=== PATIENT | male | born 1930 | race Caucasian/White ===

== ENCOUNTER 2016-11-08 09:58 | Inpatient (IN) | payer MEDICARE ==
[2016-11-08] VITALS (8 sets, daily range): BP systolic 109–200; BP diastolic 65–107; PULSE 70–96; RESP 16–20; TEMP 97.5–98.7; O2SAT 97–100
[~2016-11-08] VITALS: Ht 175.3 cm; Wt 74.0 kg
--- NOTE | 2016-11-08 10:19 | PD ---
HPI Chief Complaint: Injury Time Seen by Provider: 10:14 Travel History International Travel<30 days: No Contact w/Intl Traveler<30days: No Traveled to known affect area: No History of Present Illness HPI 86-year-old male with history of chronic arthritis left knee, presents to the ER today because he has had intermittent pain in his right knee for the past 4 months, worse in the past 3 weeks, had been seen by primary care physician and specialist regarding the right knee, had been told it was arthritis, and comes to the ER today because he states that now he has both knees at which are hurting him and he is not able to get around. Patient states that he lives alone. His right knee is painful especially with movement, and states that he can get an 8 out of 10 pain when he strains of the knee. He denies any fevers, new injuries, or any other issues. Modifying Factors: Worse with movements Associated Signs & Symptoms: Worsening right knee pain, difficulty getting around Risk Factors: Arthritis history PFSH Past Medical History Arthritis: No Asthma: No Autoimmune Disease: No Blood Disorders: No Anxiety: No Cancer: Yes (? COLON CANCER) High Cholesterol: No Chest Pain: No Congestive Heart Failure: No COPD: No Diminished Hearing: No Endocrine: No Gastrointestinal Disorders: Yes (COLON BLOCKAGE,COLOSTOMY, HX STOMACH ULCER) GERD: No Glaucoma: No Gout: Yes Genitourinary: Yes (RT KIDNEY NONFUNCTIONAL) Headaches: No Hepatitis: No Hiatal Hernia: Yes Hypertension: Yes Immune Disorder: No Kidney Stones: Yes (NEW ONSET) Musculoskeletal: No Neurologic: No Psychiatric: No Reproductive: No Immunizations Current: Yes Myocardial Infarction: No Renal Failure: No Seizures: No Sickle Cell Disease: No Sleep Apnea: No Thyroid Disease: No Ulcer: Yes Past Surgical History Abdominal Surgery: Yes (REPAIR OF PERFORATED ULCER, COLOSTOMY,UMBILICAL HERNIA REPAIR) AICD: No Cardiac Surgery: No Endocrine Surgery: No Eye Surgery: Yes (CATHRYN CATARACT REMOVED) Genitourinary Surgery: No Joint Replacement: No Pacemaker: No Thoracic Surgery: No Other Surgery: Yes Social History Alcohol Use: No Tobacco Use: No Substance Use: No Allergies-Medications (Allergen,Severity, Reaction): Coded Allergies: Advil (Verified Allergy, Severe, hives, 04/23/15) Aspirin (Verified Allergy, Severe, rash, 04/23/15) Ativan (Verified Allergy, Severe, rash, 04/23/15) PT STATES MAKES HIM CRAZY Tylenol (Verified Allergy, Severe, rash, 04/23/15) Reported Meds & Prescriptions Reported Meds & Active Scripts Active No Active Prescriptions or Reported Medications Review of Systems Except as stated in HPI: all other systems reviewed are Neg Physical Exam Narrative GENERAL: Well-developed, elderly white male patient who is awake, alert, oriented 3. Currently none acute distress. SKIN: Focused skin assessment warm/dry. HEAD: Atraumatic. Normocephalic. EYES: Pupils equal and round. No scleral icterus. No injection or drainage. ENT: No nasal bleeding or discharge. Mucous membranes pink and moist. NECK: Trachea midline. No JVD. CARDIOVASCULAR: Regular rate and rhythm. No murmur appreciated. RESPIRATORY: No accessory muscle use. Clear to auscultation. Breath sounds equal bilaterally. GASTROINTESTINAL: Abdomen soft, non-tender, nondistended. Hepatic and splenic margins not palpable. MUSCULOSKELETAL: No obvious deformities. No clubbing. No cyanosis. No edema. NEUROLOGICAL: Awake and alert. No obvious cranial nerve deficits. Motor grossly within normal limits. Normal speech. PSYCHIATRIC: Appropriate mood and affect; insight and judgment normal. EXTREMITIES: No clubbing, cyanosis, or edema. There is notable right knee effusion with tenderness on palpation and tenderness with ranging of motion and straightening of the right knee. No obvious bony deformities identified. Left knee is nontender to palpation, mildly tender with straightening. Neurovascularly intact. Data Data Last Documented VS Vital Signs Date Time Temp Pulse Resp B/P Pulse Ox O2 Delivery O2 Flow Rate FiO2 11/08/16 10:16 Room Air 11/08/16 10:08 97.7 96 18 195/88 98 Orders Electrocardiogram (11/08/16 ) Complete Blood Count With Diff (11/08/16 10:14) Basic Metabolic Panel (Bmp) (11/08/16 10:14) C-Reactive Protein (Crp) (11/08/16 10:14) Urinalysis - C+S If Indicated (11/08/16 10:14) Westergren Sedimentation Rate (11/08/16 10:14) Knee, Complete (4vws) (11/08/16 10:14) Knee, Complete (4vws) (11/08/16 10:21) Cath For Specimen (11/08/16 10:48) Urine Culture (11/08/16 11:16) Lactic Acid Sepsis Protocol (11/08/16 11:52) Blood Culture (11/08/16 11:52) Piperacil-Tazo 3.375 Gm Premix (Zosyn 3. (11/08/16 12:00) Admit Order (Ed Use Only) (11/08/16 12:16) Labs Laboratory Tests Test 11/08/16 11/08/16 10:20 11:16 White Blood Count 12.7 TH/MM3 Red Blood Count 4.64 MIL/MM3 Hemoglobin 12.5 GM/DL Hematocrit 39.2 % Mean Corpuscular Volume 84.4 FL Mean Corpuscular Hemoglobin 27.0 PG Mean Corpuscular Hemoglobin 32.0 % Concent Red Cell Distribution Width 14.4 % Platelet Count 383 TH/MM3 Mean Platelet Volume 7.9 FL Neutrophils (%) (Auto) 91.1 % Lymphocytes (%) (Auto) 3.8 % Monocytes (%) (Auto) 4.9 % Eosinophils (%) (Auto) 0.1 % Basophils (%) (Auto) 0.1 % Neutrophils # (Auto) 11.6 TH/MM3 Lymphocytes # (Auto) 0.5 TH/MM3 Monocytes # (Auto) 0.6 TH/MM3 Eosinophils # (Auto) 0.0 TH/MM3 Basophils # (Auto) 0.0 TH/MM3 CBC Comment DIFF FINAL Differential Comment Erythrocyte Sedimentation Rate 18 mm/hr Sodium Level 138 MEQ/L Potassium Level 4.4 MEQ/L Chloride Level 107 MEQ/L Carbon Dioxide Level 17.6 MEQ/L Anion Gap 13 MEQ/L Blood Urea Nitrogen 86 MG/DL Creatinine 4.83 MG/DL Estimat Glomerular Filtration 11 ML/MIN Rate Random Glucose 202 MG/DL Calcium Level 9.9 MG/DL C-Reactive Protein 24.00 MG/DL Urine Color YELLOW Urine Turbidity CLOUDY Urine pH 6.0 Urine Specific [place] 1.020 Urine Protein 100 mg/dL Urine Glucose (UA) NEG mg/dL Urine Ketones NEG mg/dL Urine Occult Blood MOD Urine Nitrite NEG Urine Bilirubin NEG Urine Urobilinogen LESS THAN 2.0 MG/DL Urine Leukocyte Esterase LARGE Urine RBC 23 /hpf Urine WBC /hpf Urine WBC Clumps MANY Urine Squamous Epithelial 3 /hpf Cells Urine Bacteria MANY /hpf Urine Mucus FEW /lpf Microscopic Urinalysis Comment CULTURE INDICATED MDM Medical Decision Making Medical Screen Exam Complete: Yes Emergency Medical Condition: Yes Medical Record Reviewed: Yes Interpretation(s) EKG shows normal sinus rhythm with frequent PVCs, rate at 90 bpm. No signs of acute ST-T changes. Laboratory Tests Test 11/08/16 11/08/16 10:20 11:16 White Blood Count 12.7 TH/MM3 (4.0-11.0) Hemoglobin 12.5 GM/DL (13.0-17.0) Neutrophils (%) (Auto) 91.1 % (16.0-70.0) Lymphocytes (%) (Auto) 3.8 % (9.0-44.0) Neutrophils # (Auto) 11.6 TH/MM3 (1.8-7.7) Lymphocytes # (Auto) 0.5 TH/MM3 (1.0-4.8) Carbon Dioxide Level 17.6 MEQ/L (21.0-32.0) Blood Urea Nitrogen 86 MG/DL (7-18) Creatinine 4.83 MG/DL (0.60-1.30) Estimat Glomerular Filtration 11 ML/MIN (>89) Rate Random Glucose 202 MG/DL (74-106) C-Reactive Protein 24.00 MG/DL (0.00-0.30) Urine Turbidity CLOUDY (CLEAR) Urine Protein 100 mg/dL (NEG-TRACE) Urine Occult Blood MOD (NEG) Urine Leukocyte Esterase LARGE (NEG) Urine RBC 23 /hpf (0-3) Urine WBC Clumps MANY (NONE) Urine Bacteria MANY /hpf (NONE) Urine Mucus FEW /lpf (OCC) Last 24 hours Impressions Knee X-Ray 11/08/16 1021 Signed Impressions: Service Date/Time: Tuesday, November 08, 2016 10:29 - CONCLUSION: No acute disease. Casey Otto MD Knee X-Ray 11/08/16 1014 Signed Impressions: Service Date/Time: Tuesday, November 08, 2016 10:31 - CONCLUSION: Atherosclerosis. Moderate knee joint effusion. Mild osteoarthritis. Casey Otto MD Differential Diagnosis Worsening right knee pain, bilateral knee painsosteoarthritis versus gouty arthritis versus acute fractures Narrative Course X-ray did not reveal any signs of acute issues. He does have significant the left knee arthritis. Lab work shows significant UTI. Patient's friend comes in and states that he did look local disoriented yesterday as well. At this point, my plan would be to give him IV antibiotics for UTI, there is suspicion of underlying sepsis. My plan would be to admit the patient for further treatment. Case is discussed with Dr. Montanez for admission. Sepsis Criteria SIRS Criteria (2 or more): Heart rate over 90, WBC > 13800, < 4000 or > 10% bands Sepsis Criteria (SIRS+source): Infect source susp/known Diagnosis Primary Impression: UTI (urinary tract infection) Additional Impressions: Sepsis Acute renal failure Knee pain, right Admitting Information Admitting Physician Requests: Admit Scripts No Active Prescriptions or Reported Meds Kenton Guo MD Nov 08, 2016 10:19 Kenton Guo MD Nov 08, 2016 10:19
[2016-11-08 10:40] LABS: AUTOMATED NEUTROPHIL # 11.6 TH/MM3 (1.8-7.7); BASOPHIL % 0.1 % (0.0-2.0); EOSINOPHIL % 0.1 % (0.0-4.0); HEMATOCRIT 39.2 % (39.0-51.0); HEMO FLAGS DIFF FINAL; LYMPH % 3.8 % (9.0-44.0); LYMPHOCYTE # 0.5 TH/MM3 (1.0-4.8); MEAN CELL VOLUME 84.4 FL (80.0-100.0); MONO % 4.9 % (0.0-8.0); NEUT % 91.1 % (16.0-70.0); PLATELET COUNT 383 TH/MM3 (150-450); RED BLOOD COUNT 4.64 MIL/MM3 (4.50-5.90); RED CELL DISTRIBUTION WIDTH 14.4 % (11.6-17.2); WHITE BLOOD COUNT 12.7 TH/MM3 (4.0-11.0)
--- NOTE | 2016-11-08 10:50 | RADRPT ---
EXAM DATE/TIME: 11/08/2016 10:31 [facility] COMPARISON: No previous studies available for comparison. INDICATIONS : Left knee pain., no known trauma MEDICAL HISTORY : None. SURGICAL HISTORY : None. ENCOUNTER: Initial ACUITY: 3 months PAIN SCORE: 6/10 LOCATION: Left knee FINDINGS: No fracture or dislocation. Moderate knee joint effusion. Popliteal artery calcifications. Mild narro wing of the medial tibiofemoral compartment. CONCLUSION: Atherosclerosis. Moderate knee joint effusion. Mild osteoarthritis. Casey Otto MD on November 08, 2016 at 10:48 Board Certified Radiologist. This report was verified electronically.
[2016-11-08 10:51] LABS: BICARBONATE 17.6 MEQ/L (21.0-32.0); POTASSIUM 4.4 MEQ/L (3.5-5.1)
--- NOTE | 2016-11-08 10:51 | RADRPT ---
EXAM DATE/TIME: 11/08/2016 10:29 [facility] COMPARISON: No previous studies available for comparison. INDICATIONS : Right knee pain. MEDICAL HISTORY : None. SURGICAL HISTORY : None. ENCOUNTER: Initial ACUITY: 3 months PAIN SCORE: 8/10 LOCATION: Right knee FINDINGS: Four view examination of the right knee demonstrates no evidence of fracture or dislocation. Bony mi neralization is normal. The articular surfaces are intact. The suprapatellar soft tissues have a no rmal configuration. CONCLUSION: No acute disease. Casey Otto MD on November 08, 2016 at 10:49 Board Certified Radiologist. This report was verified electronically.
[2016-11-08 11:43] LABS: BACTERIA, URINE MANY /hpf; BLOOD, URINE MOD (NEG); COMMENT (UR) CULTURE INDICATED; CULTURE IF INDICATED CULTURE INDICATED; GLUCOSE,URINE NEG (NEG); KETONE, URINE NEG (NEG); MUCUS URINE FEW /lpf (OCC); NITRITE,URINE NEG (NEG); SQUAMOUS EPITHELIAL CELL URINE 3 /hpf (0-5); URINE COLOR YELLOW (YELLW/STRAW)
[2016-11-08] MEDS ORDERED: PIPERACIL-TAZO 3.375 GM PREMIX 50 ML IV ONE (12:00)
--- NOTE | 2016-11-08 12:21 | EKG ---
Date Performed: 11/08/2016 Time Performed: 10:20:07 PTAGE: 86 years EKG: Sinus rhythm WITH FREQUENT SUPRAVENTRICULAR PREMATURE COMPLEXES RIGHT BUNDLE BRANCH BLOCK LEFT ANTERIOR FASCICULA R BLOCK LEFT VENTRICULAR HYPERTROPHY AND ST-T CHANGE ABNORMAL ECG PREVIOUS TRACING : 07/03/2013 21.22 DOCTOR: Sarwat Delgado Interpretating Date/Time 11/08/2016 12:19:52
[2016-11-08] MEDS ORDERED: MAGNESIUM HYDROXIDE SUSP 30 ML CUP PO PRN (12:30)
[2016-11-08] MEDS ORDERED: SODIUM CHLORIDE 0.9% FLUSH 10 ML FLUSH IV FLUSH PRN (12:30)
[2016-11-08] MEDS ORDERED: TEMAZEPAM 15 MG CAP PO PRN (12:30)
[2016-11-08] MEDS ORDERED: NALOXONE HCL 0.4 MG/ML AMP IV PRN (12:30)
[2016-11-08] MEDS ORDERED: ONDANSETRON HCL 4 MG/2 ML VIAL IVP PRN (12:30)
[2016-11-08] MEDS ORDERED: ACETAMINOPHEN 325 MG TAB PO PRN (12:30)
--- NOTE | 2016-11-08 12:50 | RADRPT ---
EXAM DATE/TIME: 11/08/2016 12:29 [facility] COMPARISON: CHEST PA & LAT, September 02, 2013, 10:23. INDICATIONS : Cough. MEDICAL HISTORY : None. SURGICAL HISTORY : None. ENCOUNTER: Initial ACUITY: 3 weeks PAIN SCORE: 0/10 LOCATION: Bilateral chest FINDINGS: A single view of the chest demonstrates the lungs to be symmetrically aerated without evidence of mas s, infiltrate or effusion. The cardiomediastinal contours are unremarkable. Osseous structures are intact. Stable mild elevation of the left hemidiaphragm. CONCLUSION: No acute disease. Casey Otto MD on November 08, 2016 at 12:48 Board Certified Radiologist. This report was verified electronically.
[2016-11-08] MEDS ORDERED: ENALAPRILAT 1.25 MG/ML VIAL IV PRN (13:30)
--- NOTE | 2016-11-08 13:36 | HHI.HP ---
HPI Service [facility] Hospitalists Primary Care Physician Buck Barton MD Admission Diagnosis Acute renal failure/Dehydration Chief Complaint: Knee pain Travel History International Travel<30 Days: No Contact w/Intl Traveler <30 Da: No Traveled to Known Affected Are: No History of Present Illness Mr. Bryant is an 86 y/o WM with HTN, hx of gout, CKD stage 4, and osteoarthritis. He presented to the ED at [facility] on 11/08/16 with complaints of intermittent pain in his right knee for the past 4 months, which has been worse in the past 3 weeks. He states that his left knee has been bothering his as well but not as much as the right knee. He was previously seen by primary care physician and was sent to an Orthopedic surgeon regarding his knees. He states that he had some sort of injection in his left knee which did not improve his pain. He states that he has been unable to get around well at home as he lives alone. He has not been eating well either. Pt states that he has friends that occasionally check on him but he has not family around. He just found out 2 days ago that his oldest sister, who was 92 y/o, . He does not have any living children. His knees are very painful especially when he attempts to move them much. His right knee is swollen. He denies any fevers/chills, falls at home, chest pain, SOB, dizziness, nausea/vomiting. Pts UA in the ED was abnormal, culture is pending. Pt was given Zosyn in the ED. Review of Systems Constitutional: DENIES: Fever, Chills Respiratory: DENIES: Cough, Shortness of breath Genitourinary: DENIES: Hematuria, Dysuria Musculoskeletal: COMPLAINS OF: Joint pain, Stiffness, Joint Swelling Integumentary: DENIES: Rash Psychiatric: DENIES: Confusion, Hallucinations Past Family Social History Past Medical History GERD Gout CKD, stage 4 Osteoarthritis HTN Paroxysmal ventricular tachycardia Pulmonary HTN Lumbar disc disease Hx of PUD Hx of adenocarcinoma of the colon in 2012 Past Surgical History Exploratory lap with loop colostomy on 07/05/[address] Torrez Subsequently had a colonoscopy on 09-02-13 that showed an adenomatous appearing polyps of the cecum and a colon cancer of the rectosigmoid colon Exploratory laparotomy with extended left hemicolectomy and closure of colostomy on 09-09-[address] Torrez Arthrocentesis of the right knee on 07/08/13 Cataract surgery bilaterally Inguinal hernia repair Reported Medications No Active Prescriptions or Reported Medications Allergies: Coded Allergies: Advil (Verified Allergy, Severe, hives, 04/23/15) Aspirin (Verified Allergy, Severe, rash, 04/23/15) Ativan (Verified Allergy, Severe, rash, 04/23/15) PT STATES MAKES HIM CRAZY Tylenol (Verified Allergy, Severe, rash, 04/23/15) Family History Noncontributory Social History Denies any alcohol, tobacco or illicit drug use Physical Exam Vital Signs Vital Signs Date Time Temp Pulse Resp B/P Pulse Ox O2 Delivery O2 Flow Rate FiO2 11/08/16 10:16 Room Air 11/08/16 10:08 97.7 96 18 195/88 98 Physical Exam GENERAL: Thin elderly male in NAD HEENT: Atraumatic. Normocephalic. No temporal or scalp tenderness. No scleral icterus. Airway patent. NECK: Trachea midline, supple, nontender. CARDIO: Regular RESP: CTA bilaterally. No wheezes, rales, or rhonchi. ABD: +BS, soft, non-tender, nondistended. EXT: Bilateral knees are painful to the touch, R>L, with some effusion of the right knee NEURO: Awake and alert. Motor and sensory grossly within normal limits. Normal speech. Laboratory Laboratory Tests Test 11/08/16 11/08/16 11/08/16 10:20 11:16 12:06 White Blood Count 12.7 Red Blood Count 4.64 Hemoglobin 12.5 Hematocrit 39.2 Mean Corpuscular Volume 84.4 Mean Corpuscular Hemoglobin 27.0 Mean Corpuscular Hemoglobin 32.0 Concent Red Cell Distribution Width 14.4 Platelet Count 383 Mean Platelet Volume 7.9 Neutrophils (%) (Auto) 91.1 Lymphocytes (%) (Auto) 3.8 Monocytes (%) (Auto) 4.9 Eosinophils (%) (Auto) 0.1 Basophils (%) (Auto) 0.1 Neutrophils # (Auto) 11.6 Lymphocytes # (Auto) 0.5 Monocytes # (Auto) 0.6 Eosinophils # (Auto) 0.0 Basophils # (Auto) 0.0 CBC Comment DIFF FINAL Differential Comment Erythrocyte Sedimentation Rate 18 Sodium Level 138 Potassium Level 4.4 Chloride Level 107 Carbon Dioxide Level 17.6 Anion Gap 13 Blood Urea Nitrogen 86 Creatinine 4.83 Estimat Glomerular Filtration 11 Rate Random Glucose 202 Calcium Level 9.9 C-Reactive Protein 24.00 Urine Color YELLOW Urine Turbidity CLOUDY Urine pH 6.0 Urine Specific [place] 1.020 Urine Protein 100 Urine Glucose (UA) NEG Urine Ketones NEG Urine Occult Blood MOD Urine Nitrite NEG Urine Bilirubin NEG Urine Urobilinogen LESS THAN 2.0 Urine Leukocyte Esterase LARGE Urine RBC 23 Urine WBC Urine WBC Clumps MANY Urine Squamous Epithelial 3 Cells Urine Bacteria MANY Urine Mucus FEW Microscopic Urinalysis Comment CULTURE INDICATED Lactic Acid Level 2.7 Date/Time Procedure Status Source Growth 11/08/16 12:10 Aerobic Blood Culture Received Blood Peripheral Pending 11/08/16 12:10 Anaerobic Blood Culture Received Blood Peripheral Pending 11/08/16 11:16 Urine Culture Received Urine Random Urine Pending Result Diagram: 11/08/16 1020 11/08/16 1020 Imaging Last Impressions Chest X-Ray 11/08/16 1221 Signed Impressions: Service Date/Time: Tuesday, November 08, 2016 12:29 - CONCLUSION: No acute disease. Casey Otto MD Knee X-Ray 11/08/16 1021 Signed Impressions: Service Date/Time: Tuesday, November 08, 2016 10:29 - CONCLUSION: No acute disease. Casey Otto MD Septic Shock Reassessment Heart: Regular rate and rhythm Lungs: Clear Skin: Warm Assessment and Plan Problem List: (1) Acute worsening of stage 4 chronic kidney disease Status: Acute Plan: - Pt admitted with worsening knee pain, R>L, and decreased ability to perform ADL secondary to pain and immobility. - He reportedly has not been eating or drinking well more recently. - Pt noted to have acute worsening of his baseline CKD, stage 4, with Cr 4.83, this is likely related to dehydration. Pts outpt labs with Cr around 2.4-2.5 - IVF - Encourage oral intake - Pts UA was abnormal in the ED and urine culture is pending. - Pt was given a dose of Zosyn in the ED. We will hold off on continuing antibiotics at this time until the culture is finalized. - Monitor labs - Supportive care - Pt lives alone and seems to be failing at home. He will likely need SNF placement at the conclusion of this hospitalization and may need to be placed in LTC after SNF. He does not have any family and does not seem to have a lot of social support other than a few friends that check on him periodically during the week and another friend who takes him to the grocery store once a week. - PT evaluation - DVT prophylaxis with SCDs (2) Knee pain, right Status: Acute Plan: - Pt has osteoarthritis and hx of gout. - He has been having worsening bilateral knee pain, worse on the right, with a noted effusion on the right knee. - Pt with hx of gouty arthritis and had to have an arthrocentesis in 2012 for similar complaints. - He has been afebrile. - Pts CRP is 24 - Consult Orthopedic surgery - Once renal function improves may consider starting treatment for gout (3) Benign essential HTN Status: Chronic Plan: - Pt is not currently on any medications for his BP - In the past he had been on Metoprolol and Procardia - Vasotec PRN - Clonidine PRN - Monitor (4) BPH (benign prostatic hyperplasia) Status: Chronic Assessment and Plan Patient examined. Assessment and plan formulated with Lavern Bravo PA-C. I agree with the above. Lavern Bravo Nov 08, 2016 13:36 Gómez Montanez DO Nov 12, 2016 10:47
[2016-11-08 14:15] LABS: LACTIC ACID GHOST NOT REPORTABLE
[2016-11-08] MEDS ORDERED: KETOROLAC TROMETHAMINE 30 MG/ML (IVP) VIAL IV PUSH ONE (14:15)
[2016-11-08] MEDS ORDERED: KETOROLAC TROMETHAMINE 30 MG/ML (IVP) VIAL IV PUSH PRN (14:15)
[2016-11-08] MEDS: NS + KCL 20 MEQ INJ 1,000 ML IV SCH (15:32)
[2016-11-08] MEDS: SODIUM CHLORIDE 0.9% FLUSH 10 ML FLUSH IV FLUSH SCH (21:00)
[2016-11-09 00:02] VITALS: BP 150/72; PULSE 105; RESP 22; TEMP 98.6; O2SAT 95
[2016-11-09 03:49] VITALS: BP 113/69; PULSE 107; RESP 20; TEMP 98.5; O2SAT 98
[2016-11-09 07:11] LABS: BASOPHIL % 0.2 % (0.0-2.0); EOSINOPHIL # 0.2 TH/MM3 (0-0.4); EOSINOPHIL % 2.6 % (0.0-4.0); HEMO FLAGS DIFF FINAL; LYMPH % 9.6 % (9.0-44.0); LYMPHOCYTE # 0.7 TH/MM3 (1.0-4.8); MEAN CELL VOLUME 83.3 FL (80.0-100.0); MEAN CORPUSCULAR HEMOGLOBIN 27.9 PG (27.0-34.0); MEAN CORPUSCULAR HGB CONC 33.5 % (32.0-36.0); MONO % 5.5 % (0.0-8.0); NEUT % 82.1 % (16.0-70.0); PLATELET COUNT 302 TH/MM3 (150-450); RED BLOOD COUNT 3.96 MIL/MM3 (4.50-5.90); RED CELL DISTRIBUTION WIDTH 14.2 % (11.6-17.2); WHITE BLOOD COUNT 7.4 TH/MM3 (4.0-11.0)
[2016-11-09 07:42] LABS: BICARBONATE 17.8 MEQ/L (21.0-32.0); POTASSIUM 4.2 MEQ/L (3.5-5.1)
[2016-11-09 08:33] VITALS: BP 132/65; PULSE 60; RESP 22; TEMP 97.5
--- NOTE | 2016-11-09 08:34 | MB ---
cc: MORRIS BLANCHARD TRENTON Y. PA DATE OF CONSULTATION 11/09/2016 CHIEF COMPLAINT Right knee pain HISTORY OF PRESENT ILLNESS The patient is an 86-year-old white male who was admitted on 11/08/2016 for a four-month history of right knee pain. He states that he has been having significant issues with swelling and pain in the knee. He has been seen by an orthopedic doctor at [facility] who has diagnosed him with gout. He had recently given him a steroid injection in his right knee that helped for a few days. However, it has continued to progress. He states he has pain and swelling. He stated he is unable to bear weight. He reports that he is able to fully bend his knee, however, whenever he tries to extend his knee is when he has significant pain. He denies any fevers or chills. Apparently he has been treated for gout in the past and has a significant history of chronic kidney disease and he is stage IV. Denies any numbness, tingling or radiation of symptoms. Denies any redness or warmth. REVIEW OF SYSTEMS CONSTITUTIONAL: Denies fevers or chills. RESPIRATORY: Denies cough, shortness of breath. Denies loss of consciousness. Denies any rashes. Denies any confusion or hallucinations. The remaining review of systems is negative except what is mentioned in the HPI. PAST MEDICAL HISTORY Positive for: 1. Gastroesophageal reflux disease 2. Gout 3. Stage IV kidney disease 4. Osteoarthritis 5. Hypertension 6. DVT 7. Pulmonary hypertension 8. Lumbar disk disease 9. PUD 10. Adenocarcinoma of the colon in 2012. PAST SURGICAL HISTORY 1. Exploratory laparotomy with LOOP colostomy 07/05/[address] Torrez. 2. Colonoscopy in 2013. 3. Exploratory laparotomy with a left hemicolectomy and closure of colostomy in 2013. 4. Arthrocentesis of the right knee in 2012. 5. Cataract surgery bilaterally. 6. Inguinal hernia repair. REPORTED MEDICATIONS No active prescriptions or reported meds. For a complete list of inpatient meds, please see [facility]. ALLERGIES SEVERE ALLERGIES TO ADVIL, ASPIRIN, ATIVAN AND TYLENOL. FAMILY HISTORY Noncontributory SOCIAL HISTORY Denies alcohol, tobacco or illicit drug use. PHYSICAL EXAMINATION VITALS: Temperature 98.5, pulse of 107, respiratory rate 20, blood pressure 113/69, O2 saturation 98 on room air. GENERAL: This is a well-developed, well-nourished 86-year-old white male in no acute distress resting comfortably. HEAD: Normocephalic, atraumatic. EYES: Extraocular motions intact. Pupils equal, round, reactive to light. NEUROLOGIC: Cranial nerves II-XII grossly intact. EARS: Hearing intact bilaterally. NECK: Supple. No evidence of lymphadenopathy. LUNGS: No audible wheezes at bedside and no use of accessory muscles of breathing. HEART: No grade 4 murmur present. ABDOMEN: Soft and nontender. MUSCULOSKELETAL: Left knee full motion of the hip, knee, ankle and toes with minimal discomfort. Mild discomfort with motion of the knee and minimal swelling present. No erythema present. Full sensation distally. Right lower extremity full motion of the hip, ankle and toes and no pain. He has significant limitations of motion of the knee. He guards his knee in a flexed position. He is fully flexed. I am able to extend his knee to approximately 45 degrees. He experienced pain after that. There is moderate swelling of the knee. No erythema or fluctuance present. He has full sensation distally. Nontender to palpation of the knee. Bilateral upper extremities full motion of the shoulders, elbows, wrist and fingers and no pain. Full sensation distally. X-RAYS EXAMINATION X-rays of the right knee were reviewed from [facility] which showed no acute bony abnormality. Does show a moderate amount of osteoarthritis with collapsing of the medial joint space. ASSESSMENT 1. Osteoarthritis of bilateral knees 2. Gouty flare-up with potential gouty arthritis of right knee. PLAN At this point, there is no surgical intervention needed at this time from the orthopedic standpoint. I believe he is having a flare up of his gout in his right knee and a flare up of his osteoarthritis. After reviewing the H&P, it seems that he is having kidney issues and therefore cannot start gout treatment. I would recommend implementation of gout treatment by the medical doctors and management on an outpatient basis. If pain does not improve, a steroid injection could be performed in the hospital setting. He may resume his diet. He may follow up was with his orthopedist at [facility] on an outpatient basis. No further treatment will be needed by us at this time. Thank you this consultation. If the pain does continue and is unable to get it to resolve, please let us known we can perform a steroid injection at the bedside. Otherwise, please reconsult for any further issues. Thank you for this consultation. The above patient was reviewed and discussed with Dr. Blanchard and he agrees with above dictation. García ESTES /7:48 AM /8:33 AM
[2016-11-09] MEDS: SODIUM CHLORIDE 0.9% FLUSH 10 ML FLUSH IV FLUSH SCH ×2 (09:00→21:00)
[2016-11-09] MEDS: NS + KCL 20 MEQ INJ 1,000 ML IV SCH ×3 (10:21→21:01)
[2016-11-09 11:57] VITALS: BP 129/68; PULSE 67; RESP 20; O2SAT 99
[2016-11-09 14:26] VITALS: BP 129/71; PULSE 70; RESP 20; TEMP 96.7; O2SAT 98
--- NOTE | 2016-11-09 14:28 | HHI.PR ---
Subjective Remarks Pt upset because he doesn't think that he will be able to go to his sisters He states that his pain in is knees is slightly better today Pt did not eat much lunch Objective Vitals Vital Signs Date Time Temp Pulse Resp B/P Pulse Ox O2 Delivery O2 Flow Rate FiO2 11/09/16 11:57 67 20 129/68 99 11/09/16 08:33 97.5 60 22 132/65 11/09/16 03:49 98.5 107 20 113/69 98 11/09/16 00:02 98.6 105 22 150/72 95 11/08/16 19:48 98.7 70 20 109/65 97 11/08/16 16:31 74 142/86 11/08/16 15:30 97.5 80 20 200/107 100 11/08/16 15:10 97.8 88 18 170/98 97 11/08/16 14:06 96 16 162/99 98 Room Air 11/08/16 11/08/16 11/09/16 15:00 23:00 07:00 Output Total 300 ml 200 ml Balance -300 ml -200 ml Output Urine Total 300 ml 200 ml Result Diagram: 11/09/16 0603 11/09/16 0603 Other Results Laboratory Tests Test 11/08/16 11/08/16 11/08/16 11/08/16 10:20 11:16 12:06 14:30 Erythrocyte Sedimentation Rate 18 mm/hr Sodium Level 138 MEQ/L Potassium Level 4.4 MEQ/L Chloride Level 107 MEQ/L Carbon Dioxide Level 17.6 MEQ/L Anion Gap 13 MEQ/L Blood Urea Nitrogen 86 MG/DL Creatinine 4.83 MG/DL Estimat Glomerular Filtration 11 ML/MIN Rate Random Glucose 202 MG/DL Calcium Level 9.9 MG/DL C-Reactive Protein 24.00 MG/DL White Blood Count 12.7 TH/MM3 Red Blood Count 4.64 MIL/MM3 Hemoglobin 12.5 GM/DL Hematocrit 39.2 % Mean Corpuscular Volume 84.4 FL Mean Corpuscular Hemoglobin 27.0 PG Mean Corpuscular Hemoglobin 32.0 % Concent Red Cell Distribution Width 14.4 % Platelet Count 383 TH/MM3 Mean Platelet Volume 7.9 FL Neutrophils (%) (Auto) 91.1 % Lymphocytes (%) (Auto) 3.8 % Monocytes (%) (Auto) 4.9 % Eosinophils (%) (Auto) 0.1 % Basophils (%) (Auto) 0.1 % Neutrophils # (Auto) 11.6 TH/MM3 Lymphocytes # (Auto) 0.5 TH/MM3 Monocytes # (Auto) 0.6 TH/MM3 Eosinophils # (Auto) 0.0 TH/MM3 Basophils # (Auto) 0.0 TH/MM3 CBC Comment DIFF FINAL Differential Comment Urine Color YELLOW Urine Turbidity CLOUDY Urine pH 6.0 Urine Specific [place] 1.020 Urine Protein 100 mg/dL Urine Glucose (UA) NEG mg/dL Urine Ketones NEG mg/dL Urine Occult Blood MOD Urine Nitrite NEG Urine Bilirubin NEG Urine Urobilinogen LESS THAN 2.0 MG/DL Urine Leukocyte Esterase LARGE Urine RBC 23 /hpf Urine WBC /hpf Urine WBC Clumps MANY Urine Squamous Epithelial 3 /hpf Cells Urine Bacteria MANY /hpf Urine Mucus FEW /lpf Microscopic Urinalysis Comment CULTURE INDICATED Lactic Acid Level 2.7 mmol/L 1.4 mmol/L Test 11/09/16 06:03 White Blood Count 7.4 TH/MM3 Red Blood Count 3.96 MIL/MM3 Hemoglobin 11.0 GM/DL Hematocrit 33.0 % Mean Corpuscular Volume 83.3 FL Mean Corpuscular Hemoglobin 27.9 PG Mean Corpuscular Hemoglobin 33.5 % Concent Red Cell Distribution Width 14.2 % Platelet Count 302 TH/MM3 Mean Platelet Volume 8.0 FL Neutrophils (%) (Auto) 82.1 % Lymphocytes (%) (Auto) 9.6 % Monocytes (%) (Auto) 5.5 % Eosinophils (%) (Auto) 2.6 % Basophils (%) (Auto) 0.2 % Neutrophils # (Auto) 6.0 TH/MM3 Lymphocytes # (Auto) 0.7 TH/MM3 Monocytes # (Auto) 0.4 TH/MM3 Eosinophils # (Auto) 0.2 TH/MM3 Basophils # (Auto) 0.0 TH/MM3 CBC Comment DIFF FINAL Differential Comment Sodium Level 142 MEQ/L Potassium Level 4.2 MEQ/L Chloride Level 113 MEQ/L Carbon Dioxide Level 17.8 MEQ/L Anion Gap 11 MEQ/L Blood Urea Nitrogen 89 MG/DL Creatinine 4.42 MG/DL Estimat Glomerular Filtration 13 ML/MIN Rate Random Glucose 88 MG/DL Calcium Level 8.6 MG/DL Imaging Last Impressions Chest X-Ray 11/08/16 1221 Signed Impressions: Service Date/Time: Tuesday, November 08, 2016 12:29 - CONCLUSION: No acute disease. Casey Otto MD Knee X-Ray 11/08/16 1021 Signed Impressions: Service Date/Time: Tuesday, November 08, 2016 10:29 - CONCLUSION: No acute disease. Casey Otto MD Objective Remarks General: NAD, pt somewhat agitated Chest: CTA Cardiac: Regular Abd: +BS, soft ND/NT Ext: tenderness of bilateral knees to palpation, less today A/P Problem List: (1) Acute worsening of stage 4 chronic kidney disease Status: Acute Plan: - Pt admitted with worsening knee pain, R>L, and decreased ability to perform ADL secondary to pain and immobility. - He reportedly has not been eating or drinking well more recently. - Pt noted to have acute worsening of his baseline CKD, stage 4, with Cr 4.83, this is likely related to dehydration. Pts outpt labs with Cr around 2.4-2.5 - IVF - Encourage oral intake - Repeat labs today with Cr 4.42 - Pts UA was abnormal in the ED and urine culture is growing gram negative rods , we will give Levaquin Q48H due to renal function. - Monitor labs - Supportive care - Pt lives alone and seems to be failing at home. He will likely need SNF placement at the conclusion of this hospitalization and may need to be placed in LTC after SNF. He does not have any family and does not seem to have a lot of social support other than a few friends that check on him periodically during the week and another friend who takes him to the grocery store once a week. - PT evaluation - DVT prophylaxis with SCDs (2) Knee pain, right Status: Acute Plan: - Pt has osteoarthritis and hx of gout. - He has been having worsening bilateral knee pain, worse on the right, with a noted effusion on the right knee. - Pt with hx of gouty arthritis and had to have an arthrocentesis in 2012 for similar complaints. - He has been afebrile. - Pts CRP is 24 - Orthopedic surgery consulted, no plan for any injection or arthrocentesis at this point. - Once renal function improves may consider starting treatment for gout (3) Benign essential HTN Status: Chronic Plan: - Pt is not currently on any medications for his BP - In the past he had been on Metoprolol and Procardia - Vasotec PRN - Clonidine PRN - Monitor (4) BPH (benign prostatic hyperplasia) Status: Chronic Assessment and Plan Patient examined. Assessment and plan formulated with Lavern Bravo PA-C. I agree with the above. Lavern Bravo Nov 09, 2016 14:28 Gómez Montanez DO Nov 12, 2016 10:48
[2016-11-09] MEDS: LEVOFLOXACIN 500 MG TAB PO SCH (15:30)
[2016-11-09] MEDS ORDERED: LATA0.002 EACH EYE (18:45)
[2016-11-09 19:35] VITALS: BP 121/60; PULSE 86; RESP 20; TEMP 97.5; O2SAT 96
[2016-11-09] MEDS: LATANOPROST 0.005% OPHT SOLN 2.5 ML BTL EACH EYE SCH (21:00)
[2016-11-10] VITALS (7 sets, daily range): BP systolic 129–184; BP diastolic 59–85; PULSE 62–76; RESP 16–20; TEMP 96–98.5; O2SAT 95–100
[2016-11-10] MEDS: NS + KCL 20 MEQ INJ 1,000 ML IV SCH ×3 (06:34→20:04)
[2016-11-10] MEDS: SODIUM CHLORIDE 0.9% FLUSH 10 ML FLUSH IV FLUSH SCH ×2 (07:49→20:02)
[2016-11-10 07:52] LABS: AUTOMATED NEUTROPHIL # 5.4 TH/MM3 (1.8-7.7); BASOPHIL % 0.2 % (0.0-2.0); EOSINOPHIL # 0.3 TH/MM3 (0-0.4); EOSINOPHIL % 4.6 % (0.0-4.0); HEMATOCRIT 34.1 % (39.0-51.0); HEMO FLAGS DIFF FINAL; LYMPH % 9.8 % (9.0-44.0); LYMPHOCYTE # 0.7 TH/MM3 (1.0-4.8); MEAN CELL VOLUME 84.7 FL (80.0-100.0); MEAN CORPUSCULAR HEMOGLOBIN 27.8 PG (27.0-34.0); MEAN CORPUSCULAR HGB CONC 32.8 % (32.0-36.0); MONO % 5.6 % (0.0-8.0); NEUT % 79.8 % (16.0-70.0); PLATELET COUNT 295 TH/MM3 (150-450); RED BLOOD COUNT 4.03 MIL/MM3 (4.50-5.90); RED CELL DISTRIBUTION WIDTH 14.8 % (11.6-17.2); WHITE BLOOD COUNT 6.7 TH/MM3 (4.0-11.0)
[2016-11-10 08:15] LABS: BICARBONATE 18.3 MEQ/L (21.0-32.0); MAGNESIUM 2.6 MG/DL (1.5-2.5); POTASSIUM 4.9 MEQ/L (3.5-5.1)
--- NOTE | 2016-11-10 14:50 | HHI.PR ---
Subjective Remarks No new complaints. Very weak. Objective Vitals Vital Signs Date Time Temp Pulse Resp B/P Pulse Ox O2 Delivery O2 Flow Rate FiO2 11/10/16 11:26 97.5 69 16 159/72 98 11/10/16 07:40 97.4 62 16 153/70 97 11/10/16 04:13 97.8 76 20 129/67 95 11/10/16 00:10 98.0 65 20 129/59 100 11/09/16 19:35 97.5 86 20 121/60 96 11/09/16 11/09/16 11/10/16 15:00 23:00 07:00 # Voids 1 4 Result Diagram: 11/10/16 0655 11/10/16 0655 Imaging Last Impressions Chest X-Ray 11/08/16 1221 Signed Impressions: Service Date/Time: Tuesday, November 08, 2016 12:29 - CONCLUSION: No acute disease. Casey Otto MD Knee X-Ray 11/08/16 1021 Signed Impressions: Service Date/Time: Tuesday, November 08, 2016 10:29 - CONCLUSION: No acute disease. Casey Otto MD Objective Remarks General: NAD Chest: CTA Cardiac: Regular Abd: +BS, soft ND/NT Ext: tenderness of bilateral knees to palpation, less today A/P Problem List: (1) Acute worsening of stage 4 chronic kidney disease Status: Acute Plan: - Pt admitted with worsening knee pain, R>L, and decreased ability to perform ADL secondary to pain and immobility. - He reportedly has not been eating or drinking well more recently. - Pt noted to have acute worsening of his baseline CKD, stage 4, with Cr 4.83, this is likely related to dehydration. Pts outpt labs with Cr around 2.4-2.5 - IVF - Encourage oral intake - Repeat labs today with Cr 4.42 - Pts UA was abnormal in the ED and urine culture is growing gram negative rods , we will give Levaquin Q48H due to renal function. - Monitor labs - Supportive care - Pt lives alone and seems to be failing at home. He will likely need SNF placement at the conclusion of this hospitalization and may need to be placed in LTC after SNF. He does not have any family and does not seem to have a lot of social support other than a few friends that check on him periodically during the week and another friend who takes him to the grocery store once a week. - PT evaluation - DVT prophylaxis with SCDs 11/10/16 - Pt interviewed and examined - continue IVFs - repeat BMP in AM (2) Knee pain, right Status: Acute Plan: - Pt has osteoarthritis and hx of gout. - He has been having worsening bilateral knee pain, worse on the right, with a noted effusion on the right knee. - Pt with hx of gouty arthritis and had to have an arthrocentesis in 2012 for similar complaints. - He has been afebrile. - Pts CRP is 24 - Orthopedic surgery consulted, no plan for any injection or arthrocentesis at this point. - Once renal function improves may consider starting treatment for gout (3) Benign essential HTN Status: Chronic Plan: - Pt is not currently on any medications for his BP - In the past he had been on Metoprolol and Procardia - Vasotec PRN - Clonidine PRN - Monitor (4) BPH (benign prostatic hyperplasia) Status: Chronic Gómez Montanez DO Nov 10, 2016 14:50
[2016-11-10] MEDS ORDERED: MAGNESIUM HYDROXIDE SUSP 30 ML CUP PO PRN (15:00)
[2016-11-10] MEDS: DOCUSATE SODIUM 100 MG CAP PO SCH ×2 (15:53→20:02)
[2016-11-10] MEDS: cloNIDine HCL 0.2 MG TAB PO PRN (19:58)
[2016-11-10] MEDS: LATANOPROST 0.005% OPHT SOLN 2.5 ML BTL EACH EYE SCH (20:02)
[2016-11-11] VITALS: BP 118/72; PULSE 72; RESP 20; TEMP 98.3; O2SAT 96
[2016-11-11 07:25] LABS: BICARBONATE 17.1 MEQ/L (21.0-32.0); POTASSIUM 5.1 MEQ/L (3.5-5.1)
[2016-11-11 08:00] VITALS: BP 167/77; PULSE 55; RESP 16; TEMP 96.1; O2SAT 99
[2016-11-11] MEDS: SODIUM CHLORIDE 0.9% FLUSH 10 ML FLUSH IV FLUSH SCH ×2 (08:38→20:14)
[2016-11-11] MEDS: DOCUSATE SODIUM 100 MG CAP PO SCH (08:39)
[2016-11-11] MEDS: NS + KCL 20 MEQ INJ 1,000 ML IV SCH ×2 (08:45→22:29)
[2016-11-11 12:00] VITALS: BP 148/67; PULSE 57; RESP 14; TEMP 96.9; O2SAT 99
[2016-11-11] MEDS: LEVOFLOXACIN 500 MG TAB PO SCH (15:25)
[2016-11-11 16:00] VITALS: BP 136/54; PULSE 54; RESP 16; TEMP 96.7; O2SAT 99
--- NOTE | 2016-11-11 16:37 | HHI.PR ---
Subjective Remarks No new complaints. Objective Vitals Vital Signs Date Time Temp Pulse Resp B/P Pulse Ox O2 Delivery O2 Flow Rate FiO2 11/11/16 12:00 96.9 57 14 148/67 99 11/11/16 08:00 96.1 55 16 167/77 99 11/11/16 00:00 98.3 72 20 118/72 96 11/10/16 20:00 96.0 62 20 184/85 96 11/10/16 11/10/16 11/11/16 15:00 23:00 07:00 Intake Total 1103 ml 689 ml Output Total 500 ml 350 ml 500 ml Balance -500 ml 753 ml 189 ml Intake Oral 120 ml 120 ml IV Total 983 ml 569 ml Output Urine Total 500 ml 350 ml 500 ml # Bowel Movements 0 0 Result Diagram: 11/10/16 0655 11/11/16 0600 Imaging Last Impressions Chest X-Ray 11/08/16 1221 Signed Impressions: Service Date/Time: Tuesday, November 08, 2016 12:29 - CONCLUSION: No acute disease. Casey Otto MD Knee X-Ray 11/08/16 1021 Signed Impressions: Service Date/Time: Tuesday, November 08, 2016 10:29 - CONCLUSION: No acute disease. Casey Otto MD Objective Remarks General: NAD Chest: CTA Cardiac: Regular Abd: +BS, soft ND/NT Ext: tenderness of bilateral knees to palpation, less today A/P Problem List: (1) Acute worsening of stage 4 chronic kidney disease Status: Acute Plan: - Pt admitted with worsening knee pain, R>L, and decreased ability to perform ADL secondary to pain and immobility. - He reportedly has not been eating or drinking well more recently. - Pt noted to have acute worsening of his baseline CKD, stage 4, with Cr 4.83, this is likely related to dehydration. Pts outpt labs with Cr around 2.4-2.5 - IVF - Encourage oral intake - Pts UA was abnormal in the ED and urine culture is growing gram negative rods , we will give Levaquin Q48H due to renal function. - Monitor labs - Supportive care - Pt lives alone and seems to be failing at home. He will likely need SNF placement at the conclusion of this hospitalization and may need to be placed in LTC after SNF. He does not have any family and does not seem to have a lot of social support other than a few friends that check on him periodically during the week and another friend who takes him to the grocery store once a week. - PT evaluation - DVT prophylaxis with SCDs 11/11/16 - Creatinine is slowly improving - Cr 3.5 (11/11/16) - continue IVF - repeat BMP in AM (2) Knee pain, right Status: Acute Plan: - Pt has osteoarthritis and hx of gout. - He has been having worsening bilateral knee pain, worse on the right, with a noted effusion on the right knee. - Pt with hx of gouty arthritis and had to have an arthrocentesis in 2012 for similar complaints. - He has been afebrile. - Pts CRP is 24 - Orthopedic surgery consulted, no plan for any injection or arthrocentesis at this point. - Once renal function improves may consider starting treatment for gout (3) Benign essential HTN Status: Chronic Plan: - Pt is not currently on any medications for his BP - In the past he had been on Metoprolol and Procardia - Vasotec PRN - Clonidine PRN - Monitor (4) BPH (benign prostatic hyperplasia) Status: Chronic Gómez Montanez DO Nov 11, 2016 16:37
[2016-11-11 20:00] VITALS: BP 162/95; PULSE 62; RESP 22; TEMP 96.1; O2SAT 97
[2016-11-11] MEDS: LATANOPROST 0.005% OPHT SOLN 2.5 ML BTL EACH EYE SCH (20:14)
[2016-11-12] VITALS: BP_SYST 121; BP_SYST 181; BP_DIAS 56; BP_DIAS 84; PULSE 60; PULSE 75; RESP 18; RESP 20; TEMP 97.3; O2SAT 100; O2SAT 95
[2016-11-12] MEDS: traMADol HCL 50 MG TAB PO PRN (00:15)
[2016-11-12 06:00] LABS: BICARBONATE 17.4 MEQ/L (21.0-32.0); POTASSIUM 5.2 MEQ/L (3.5-5.1)
[2016-11-12 08:00] VITALS: BP 175/83; PULSE 73; RESP 16; TEMP 97.1; O2SAT 98
[2016-11-12] MEDS: NS + KCL 20 MEQ INJ 1,000 ML IV SCH (09:09)
[2016-11-12] MEDS: SODIUM CHLORIDE 0.9% FLUSH 10 ML FLUSH IV FLUSH SCH ×2 (09:10→21:14)
--- NOTE | 2016-11-12 10:53 | HHI.PR ---
Subjective Remarks No new complaints. Objective Vitals Vital Signs Date Time Temp Pulse Resp B/P Pulse Ox O2 Delivery O2 Flow Rate FiO2 11/12/16 08:00 97.1 73 16 175/83 98 11/12/16 00:00 97.3 60 20 181/84 100 11/11/16 20:00 96.1 62 22 162/95 97 11/11/16 16:00 96.7 54 16 136/54 99 11/11/16 12:00 96.9 57 14 148/67 99 11/11/16 11/11/16 11/12/16 15:00 23:00 07:00 Intake Total 1026 ml 806 ml 1152 ml Output Total 750 ml 1150 ml 425 ml Balance 276 ml -344 ml 727 ml Intake Oral 480 ml 240 ml 240 ml IV Total 546 ml 566 ml 912 ml Output Urine Total 750 ml 1150 ml 425 ml # Voids 2 # Bowel Movements 2 2 0 Result Diagram: 11/10/16 0655 11/12/16 0420 Imaging Last Impressions Chest X-Ray 11/08/16 1221 Signed Impressions: Service Date/Time: Tuesday, November 08, 2016 12:29 - CONCLUSION: No acute disease. Casey Otto MD Knee X-Ray 11/08/16 1021 Signed Impressions: Service Date/Time: Tuesday, November 08, 2016 10:29 - CONCLUSION: No acute disease. Casey Otto MD Objective Remarks General: NAD Chest: CTA Cardiac: Regular Abd: +BS, soft ND/NT Ext: tenderness of bilateral knees to palpation, less today A/P Problem List: (1) Acute worsening of stage 4 chronic kidney disease Status: Acute Plan: - improving - Pt admitted with worsening knee pain, R>L, and decreased ability to perform ADL secondary to pain and immobility. - He reportedly has not been eating or drinking well more recently. - Pt noted to have acute worsening of his baseline CKD, stage 4, with Cr 4.83, this is likely related to dehydration. Pts outpt labs with Cr around 2.4-2.5 - IVF - Encourage oral intake - Pts UA was abnormal in the ED and urine culture is growing gram negative rods , we will give Levaquin Q48H due to renal function. - Monitor labs - Supportive care - Pt lives alone and seems to be failing at home. He will likely need SNF placement at the conclusion of this hospitalization and may need to be placed in LTC after SNF. He does NOT have any family and does NOT seem to have a lot of social support other than a few friends that check on him periodically during the week and another friend who takes him to the grocery store once a week. - PT - DVT prophylaxis with SCDs 11/15/16 - Creatinine continues to improve - Cr 3.5 (11/11/16), 2.93 (11/12/16) - continue IVF - repeat BMP in AM - anticipate d/c to SNF in 1-2 days (2) Knee pain, right Status: Acute Plan: - Pt has osteoarthritis and hx of gout. - He has been having worsening bilateral knee pain, worse on the right, with a noted effusion on the right knee. - Pt with hx of gouty arthritis and had to have an arthrocentesis in 2012 for similar complaints. - He has been afebrile. - Pts CRP is 24 - Once renal function improves may consider starting treatment for gout - Pt seen in consultation by Orthopedic Surgeon, NO surgical treatment options (3) Benign essential HTN Status: Chronic Plan: - Pt is not currently on any medications for his BP - In the past he had been on Metoprolol and Procardia - Vasotec PRN - Clonidine PRN - Monitor (4) BPH (benign prostatic hyperplasia) Status: Chronic (5) HTN (hypertension) Status: Acute Plan: - needs improvement - started procardia XL 30mg daily - observe BP readings. Problem Qualifiers (1) HTN (hypertension): Qualified Code: I10 - Essential hypertension Gómez Montanez DO Nov 12, 2016 10:53
[2016-11-12] MEDS ORDERED: TEMAZEPAM 15 MG CAP PO PRN (11:00)
[2016-11-12] MEDS: NIFEdipine 30 MG SUSTAINED RELEASE TAB PO SCH (11:08)
[2016-11-12] MEDS: SODIUM CHLOR 0.45% 1000 ML INJ 1,000 ML IV SCH ×2 (11:08→22:43)
[2016-11-12] MEDS ORDERED: MELATONIN 5 MG TAB PO PRN (11:30)
[2016-11-12 12:00] VITALS: BP 175/81; PULSE 68; RESP 17; TEMP 97.9; O2SAT 99
[2016-11-12 16:00] VITALS: BP 192/90; PULSE 69; RESP 18; TEMP 98.4; O2SAT 98
[2016-11-12] MEDS: cloNIDine HCL 0.2 MG TAB PO PRN (16:54)
[2016-11-12 20:00] VITALS: BP 126/67; PULSE 68; RESP 17; TEMP 96.7; O2SAT 96
[2016-11-12] MEDS: LATANOPROST 0.005% OPHT SOLN 2.5 ML BTL EACH EYE SCH (21:13)
[2016-11-13 00:58] VITALS: BP 130/60; PULSE 64; RESP 18; TEMP 96.8; O2SAT 95
[2016-11-13 08:00] VITALS: BP 138/68; PULSE 72; RESP 16; TEMP 95.7; O2SAT 98
[2016-11-13] MEDS: NIFEdipine 30 MG SUSTAINED RELEASE TAB PO SCH (08:23)
[2016-11-13] MEDS: SODIUM CHLORIDE 0.9% FLUSH 10 ML FLUSH IV FLUSH SCH ×2 (08:25→22:16)
--- NOTE | 2016-11-13 09:16 | RADRPT ---
EXAM DATE/TIME: 11/13/2016 08:32 [facility] COMPARISON: CHEST SINGLE AP, November 08, 2016, 12:29. INDICATIONS : Cough. MEDICAL HISTORY : Hypertension. SURGICAL HISTORY : None. ENCOUNTER: Subsequent ACUITY: 1 month PAIN SCORE: 0/10 LOCATION: Bilateral chest FINDINGS: The lungs are clear without infiltrate, nodule, or mass. There is no appreciable pleural effusion fo r technique. Heart and mediastinum are unremarkable. The left hemidiaphragm is elevated chronic in n ature. There are atherosclerotic calcifications of the aorta due to chronic atherosclerotic disease. CONCLUSION: No acute cardiopulmonary disease. Angela Wilder MD on November 13, 2016 at 9:14 Board Certified Radiologist. This report was verified electronically.
[2016-11-13 09:34] LABS: BICARBONATE 17.7 MEQ/L (21.0-32.0); POTASSIUM 4.9 MEQ/L (3.5-5.1)
--- NOTE | 2016-11-13 09:35 | HHI.PR ---
Subjective Remarks Pt reports that his pain is better controlled. 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 Afebrile Pt is eating and drinking better. Objective Vitals Vital Signs Date Time Temp Pulse Resp B/P Pulse Ox O2 Delivery O2 Flow Rate FiO2 11/13/16 08:00 95.7 72 16 138/68 98 11/13/16 00:58 96.8 64 18 130/60 95 11/12/16 20:00 96.7 68 17 126/67 96 11/12/16 16:00 98.4 69 18 192/90 98 11/12/16 12:00 97.9 68 17 175/81 99 11/12/16 11/12/16 11/13/16 15:00 23:00 07:00 Intake Total 785 ml 360 ml 1414 ml Output Total 600 ml 400 ml 1000 ml Balance 185 ml -40 ml 414 ml Intake Oral 120 ml 360 ml 380 ml IV Total 665 ml 1034 ml Output Urine Total 600 ml 400 ml 1000 ml # Bowel Movements 2 1 Result Diagram: 11/10/16 0655 11/12/16 0420 Other Results Laboratory Tests Test 11/12/16 04:20 Sodium Level 144 MEQ/L Potassium Level 5.2 MEQ/L Chloride Level 119 MEQ/L Carbon Dioxide Level 17.4 MEQ/L Anion Gap 8 MEQ/L Blood Urea Nitrogen 61 MG/DL Creatinine 2.93 MG/DL Estimat Glomerular Filtration 20 ML/MIN Rate Random Glucose 85 MG/DL Calcium Level 8.3 MG/DL Imaging Last Impressions Chest X-Ray 11/08/16 1221 Signed Impressions: Service Date/Time: Tuesday, November 08, 2016 12:29 - CONCLUSION: No acute disease. Casey Otto MD Knee X-Ray 11/08/16 1021 Signed Impressions: Service Date/Time: Tuesday, November 08, 2016 10:29 - CONCLUSION: No acute disease. Casey Otto MD Objective Remarks General: NAD Chest: CTA Cardiac: Regular Abd: +BS, soft ND/NT Ext: tenderness of bilateral knees to palpation, less today A/P Problem List: (1) Acute worsening of stage 4 chronic kidney disease Status: Acute Plan: - improving - Pt admitted with worsening knee pain, R>L, and decreased ability to perform ADL secondary to pain and immobility. - He reportedly has not been eating or drinking well more recently. - Pt noted to have acute worsening of his baseline CKD, stage 4, with Cr 4.83, this is likely related to dehydration. Pts outpt labs with Cr around 2.4-2.5 - Creatinine continues to improve - Cr 3.5 (11/11/16) --> 2.93 (11/12/16) - Encourage oral intake - Pts UA was abnormal in the ED and urine culture is growing gram negative rods , we will give Levaquin Q48H due to renal function. - Monitor labs - Supportive care - Pt lives alone and seems to be failing at home. He will likely need SNF placement at the conclusion of this hospitalization and may need to be placed in LTC after SNF. He does NOT have any family and does NOT seem to have a lot of social support other than a few friends that check on him periodically during the week and another friend who takes him to the grocery store once a week. - PT - DVT prophylaxis with SCDs - Anticipate D/C to SNF tomorrow, pt has not selected a rehab at this time. (2) Knee pain, right Status: Acute Plan: - Pt has osteoarthritis and hx of gout. - He has been having worsening bilateral knee pain, worse on the right, with a noted effusion on the right knee. - Pt with hx of gouty arthritis and had to have an arthrocentesis in 2012 for similar complaints. - He has been afebrile. - Pts CRP is 24 - Once renal function improves may consider starting treatment for gout - Pt seen in consultation by Orthopedic Surgeon, NO surgical treatment options (3) Benign essential HTN Status: Chronic Plan: - Pt was started on Procardia XL 30mg po daily with improvement in his BP - Vasotec PRN - Clonidine PRN - Monitor (4) BPH (benign prostatic hyperplasia) Status: Chronic Assessment and Plan Patient examined. Assessment and plan formulated with Lavern Bravo PA-C. I agree with the above. right knee effusion and pain concerning for gout flare colchicine/solumedrol overnight. a/ckd from dehydration improving. uti on abx. d/c to snf tomorrow Lavern Bravo Nov 13, 2016 09:35 Houston Wade MD Nov 13, 2016 19:42
[2016-11-13 12:00] VITALS: BP 108/74; PULSE 102; RESP 20; TEMP 95.2; O2SAT 97
[2016-11-13] MEDS: SODIUM CHLOR 0.45% 1000 ML INJ 1,000 ML IV SCH ×2 (12:39→22:22)
[2016-11-13] MEDS: LEVOFLOXACIN 500 MG TAB PO SCH (14:52)
[2016-11-13] MEDS ORDERED: methylPREDNISolone SOD SUCC 125 MG/2 ML VIAL IV PUSH SCH (15:15)
[2016-11-13] MEDS ORDERED: COLCHICINE 0.6 MG TAB PO ONE (15:15)
[2016-11-13 16:00] VITALS: BP 133/70; PULSE 68; RESP 14; TEMP 97; O2SAT 98
[2016-11-13] MEDS: methylPREDNISolone SOD SUCC 125 MG/2 ML VIAL IV PUSH SCH ×2 (16:17→22:16)
[2016-11-13 20:00] VITALS: BP 136/87; PULSE 88; RESP 20; TEMP 97.7; O2SAT 97
[2016-11-13] MEDS: LATANOPROST 0.005% OPHT SOLN 2.5 ML BTL EACH EYE SCH (22:16)
[2016-11-13] MEDS: traMADol HCL 50 MG TAB PO PRN (22:17)
[2016-11-14] VITALS: BP 146/73; PULSE 81; RESP 20; TEMP 97.3; O2SAT 96
[2016-11-14] MEDS: methylPREDNISolone SOD SUCC 125 MG/2 ML VIAL IV PUSH SCH ×3 (04:44→22:30)
[2016-11-14 08:00] VITALS: BP 138/68; PULSE 73; RESP 16; TEMP 96.5; O2SAT 97
[2016-11-14] MEDS: NIFEdipine 30 MG SUSTAINED RELEASE TAB PO SCH (08:44)
[2016-11-14] MEDS: SODIUM CHLORIDE 0.9% FLUSH 10 ML FLUSH IV FLUSH SCH ×2 (08:45→22:30)
[2016-11-14] MEDS: SODIUM CHLOR 0.45% 1000 ML INJ 1,000 ML IV SCH ×2 (08:53→22:31)
[2016-11-14 12:00] VITALS: BP 130/67; PULSE 55; RESP 17; TEMP 96.3; O2SAT 97
--- NOTE | 2016-11-14 12:09 | HHI.FF ---
Face to Face Verification Diagnosis: (1) Acute worsening of stage 4 chronic kidney disease (2) UTI (urinary tract infection) (3) HTN (hypertension) (4) BPH (benign prostatic hyperplasia) (5) Benign essential HTN (6) Knee pain, right Physical Therapy Order: Evaluate and Treat, Improve ambulation, Strength and gait training Home Health Nursing Order: Medical education Nursing assessment with vital signs I have seen patient Sahil Bryant on 11/14/16. My clinical findings support the need for the requested home health care services because: Ltd mobility - disease progression Deconditioned w/ increased weakness Limited ability to care for self High risk of falls I certify that my clinical findings support that this patient is homebound because: Unsteady gait/balance Lavern Bravo Nov 14, 2016 12:08
--- NOTE | 2016-11-14 12:10 | HHI.DCPOC ---
Discharge Care Plan Diagnosis: (1) Acute worsening of stage 4 chronic kidney disease (2) UTI (urinary tract infection) (3) HTN (hypertension) (4) BPH (benign prostatic hyperplasia) (5) Knee pain, right Goals to Promote Your Health * To prevent worsening of your condition and complications * To maintain your health at the optimal level Directions to Meet Your Goals Take your medications as prescribed Follow your dietary instruction Follow activity as directed Keep your appointments as scheduled Take your immunizations and boosters as scheduled If your symptoms worsen call your PCP, if no PCP go to Urgent Care Center or Emergency Room Smoking is Dangerous to Your Health. Avoid second hand smoke Call the 24-hour hour crisis hotline for domestic abuse at Lavern Bravo Nov 14, 2016 12:10
[2016-11-14] MEDS ORDERED: COLCHICINE 0.6 MG TAB PO ONE (14:30)
--- NOTE | 2016-11-14 14:51 | HHI.PR ---
Subjective Remarks Pt reports that the pain in his knee is improved today Pt unsure that he wants to go to rehab Objective Vitals Vital Signs Date Time Temp Pulse Resp B/P Pulse Ox O2 Delivery O2 Flow Rate FiO2 11/14/16 12:00 96.3 55 17 130/67 97 11/14/16 08:00 96.5 73 16 138/68 97 11/14/16 00:49 16 11/14/16 00:00 97.3 81 20 146/73 96 11/13/16 20:00 97.7 88 20 136/87 97 11/13/16 16:00 97.0 68 14 133/70 98 11/13/16 11/13/16 11/14/16 15:00 23:00 07:00 Intake Total 778 ml 840 ml 769 ml Output Total 700 ml 500 ml 500 ml Balance 78 ml 340 ml 269 ml Intake Oral 480 ml 240 ml 120 ml IV Total 298 ml 600 ml 649 ml Output Urine Total 700 ml 500 ml 500 ml # Voids 2 1 # Bowel Movements 2 0 1 Result Diagram: 11/10/16 0655 11/13/16 0850 Other Results Laboratory Tests Test 11/13/16 08:50 Sodium Level 142 MEQ/L Potassium Level 4.9 MEQ/L Chloride Level 116 MEQ/L Carbon Dioxide Level 17.7 MEQ/L Anion Gap 8 MEQ/L Blood Urea Nitrogen 46 MG/DL Creatinine 2.73 MG/DL Estimat Glomerular Filtration 22 ML/MIN Rate Random Glucose 102 MG/DL Calcium Level 8.7 MG/DL Imaging Last Impressions Chest X-Ray 11/08/16 1221 Signed Impressions: Service Date/Time: Tuesday, November 08, 2016 12:29 - CONCLUSION: No acute disease. Casey Otto MD Knee X-Ray 11/08/16 1021 Signed Impressions: Service Date/Time: Tuesday, November 08, 2016 10:29 - CONCLUSION: No acute disease. Casey Otto MD Objective Remarks General: NAD Chest: CTA Cardiac: Regular Abd: +BS, soft ND/NT Ext: tenderness of bilateral knees to palpation, less today A/P Problem List: (1) Acute worsening of stage 4 chronic kidney disease Status: Acute Plan: - improving - Pt admitted with worsening knee pain, R>L, and decreased ability to perform ADL secondary to pain and immobility. - He reportedly has not been eating or drinking well more recently. - Pt noted to have acute worsening of his baseline CKD, stage 4, with Cr 4.83, this is likely related to dehydration. Pts outpt labs with Cr around 2.4-2.5 - Creatinine continues to improve - Cr 3.5 (11/11/16) --> 2.93 (11/12/16) - Encourage oral intake - Pts UA was abnormal in the ED and urine culture is growing gram negative rods , we will give Levaquin Q48H due to renal function. - Monitor labs - Supportive care - Pt lives alone and seems to be failing at home. He will likely need SNF placement at the conclusion of this hospitalization and may need to be placed in LTC after SNF. He does NOT have any family and does NOT seem to have a lot of social support other than a few friends that check on him periodically during the week and another friend who takes him to the grocery store once a week. - PT - DVT prophylaxis with SCDs - Anticipate D/C to SNF vs. C/PT tomorrow (2) Knee pain, right Status: Acute Plan: - Pt has osteoarthritis and hx of gout. - He has been having worsening bilateral knee pain, worse on the right, with a noted effusion on the right knee. - Pt with hx of gouty arthritis and had to have an arthrocentesis in 2012 for similar complaints. - He has been afebrile. - Pts CRP is 24 - Pt seen in consultation by Orthopedic Surgeon, NO surgical treatment options - Pt was given a dose of Colchicine and Solu-Medrol x 3 doses yesterday with symptomatic improvement. Pt was able to stand today. - We will repeat this regimen today and anticipate discharge tomorrow. (3) Benign essential HTN Status: Chronic Plan: - Pt was started on Procardia XL 30mg po daily with improvement in his BP - Vasotec PRN - Clonidine PRN - Monitor (4) BPH (benign prostatic hyperplasia) Status: Chronic Assessment and Plan Patient examined. Assessment and plan formulated with Lavern Bravo PA-C. I agree with the above. right knee gout flare. improving luther from dehydration. improved plan for d/c in AM to snf vs [facility] Lavern Bravo Nov 14, 2016 14:51 Houston Wade MD Nov 14, 2016 16:50
[2016-11-14 16:00] VITALS: BP 118/66; PULSE 70; RESP 17; TEMP 96.7; O2SAT 99
[2016-11-14 20:00] VITALS: BP 131/84; PULSE 85; RESP 21; TEMP 96.1; O2SAT 98
[2016-11-14] MEDS: LATANOPROST 0.005% OPHT SOLN 2.5 ML BTL EACH EYE SCH (22:31)
[2016-11-15] VITALS: BP 128/72; PULSE 78; RESP 21; TEMP 96.7; O2SAT 96
[2016-11-15 06:10] LABS: BICARBONATE 16.8 MEQ/L (21.0-32.0); POTASSIUM 4.5 MEQ/L (3.5-5.1)
[2016-11-15] MEDS: methylPREDNISolone SOD SUCC 125 MG/2 ML VIAL IV PUSH SCH (06:13)
[2016-11-15 08:00] VITALS: BP 157/88; PULSE 82; RESP 17; TEMP 96.3; O2SAT 96
[2016-11-15] MEDS: NIFEdipine 30 MG SUSTAINED RELEASE TAB PO SCH (08:21)
[2016-11-15] MEDS: SODIUM CHLORIDE 0.9% FLUSH 10 ML FLUSH IV FLUSH SCH (08:21)
[2016-11-15] MEDS: SODIUM CHLOR 0.45% 1000 ML INJ 1,000 ML IV SCH (10:30)
--- NOTE | 2016-11-15 11:30 | HHI.DS ---
Discharge Summary Admission Date Nov 09, 2016 at 09:25 Discharge Date: Nov 15, 2016 Admitting Diagnosis Acute renal failure/Dehydration (1) Acute worsening of stage 4 chronic kidney disease Diagnosis: Principal (2) Knee pain, right Diagnosis: Secondary (3) Benign essential HTN Diagnosis: Secondary (4) BPH (benign prostatic hyperplasia) Diagnosis: Secondary Consultants Dr. Mahesh Blanchard - Orthopedic surgery Brief History Mr. Bryant is an 86 y/o WM with HTN, hx of gout, CKD stage 4, and osteoarthritis. He presented to the ED at [facility] [place] on 11/08/16 with complaints of intermittent pain in his right knee for the past 4 months, which has been worse in the past 3 weeks. He states that his left knee has been bothering his as well but not as much as the right knee. He was previously seen by primary care physician and was sent to an Orthopedic surgeon regarding his knees. He states that he had some sort of injection in his left knee which did not improve his pain. He states that he has been unable to get around well at home as he lives alone. He has not been eating well either. Pt states that he has friends that occasionally check on him but he has not family around. He just found out 2 days ago that his oldest sister, who was 92 y/o, . He does not have any living children. His knees are very painful especially when he attempts to move them much. His right knee is swollen. He denies any fevers/chills, falls at home, chest pain, SOB, dizziness, nausea/vomiting. Pts UA in the ED was abnormal, culture is pending. Pt was given Zosyn in the ED. CBC/BMP: 11/15/16 0448 Significant Findings Laboratory Tests Test 11/13/16 11/15/16 08:50 04:48 Chloride Level 116 MEQ/L 111 MEQ/L (98-107) (98-107) Carbon Dioxide Level 17.7 MEQ/L 16.8 MEQ/L (21.0-32.0) (21.0-32.0) Blood Urea Nitrogen 46 MG/DL (7-18) 55 MG/DL (7-18) Creatinine 2.73 MG/DL 2.75 MG/DL (0.60-1.30) (0.60-1.30) Estimat Glomerular Filtration 22 ML/MIN (>89) 22 ML/MIN (>89) Rate Random Glucose 178 MG/DL (74-106) Calcium Level 8.4 MG/DL (8.5-10.1) Imaging Last Impressions Chest X-Ray 11/13/16 0800 Signed Impressions: Service Date/Time: Sunday, November 13, 2016 08:32 - CONCLUSION: No acute cardiopulmonary disease. Angela Wilder MD Knee X-Ray 11/08/16 1021 Signed Impressions: Service Date/Time: Tuesday, November 08, 2016 10:29 - CONCLUSION: No acute disease. Casey Otto MD PE at Discharge General: NAD Chest: CTA Cardiac: Regular Abd: +BS, soft ND/NT Ext: tenderness of bilateral knees to palpation, less today Hospital Course Pt admitted with worsening knee pain, R>L, and decreased ability to perform ADL secondary to pain and immobility. He reportedly had not been eating or drinking well more recently. Pt noted to have acute worsening of his baseline CKD, stage 4, with Cr 4.83, this is likely related to dehydration. Pts outpt labs with Cr around 2.4-2.5. Pt was treated with IVF with improvement in creatinine to baseline renal function. Pts UA was abnormal in the ED and urine culture is growing E. coli, pt was prescribed Levaquin Q48H due to renal function. Pt has osteoarthritis and hx of gout. He had been having worsening bilateral knee pain , worse on the right, with a noted effusion on the right knee. Pt with hx of gouty arthritis and had to have an arthrocentesis in 2012 for similar complaints. Pts CRP was 24. Pt was seen in consultation by Orthopedic Surgeon, NO surgical treatment options. Pt was given a dose of Colchicine and Solu- Medrol x 3 doses on 11/13 with symptomatic improvement and was able to stand today and ambulate 6'. This regimen was repeated on 11/14 with continued improvement. Pt was started during this admission on Procardia XL 30mg po daily due to elevated BP and with the Procardia he had improvement in his BP. This will be continued at discharge. Pt lives alone and seems to be failing at home. He was recommended SNF placement at the conclusion of this hospitalization and may need to be placed in LTC after SNF. He does NOT have any family and does NOT seem to have a lot of social support other than a few friends that check on him periodically during the week and another friend who takes him to the grocery store once a week. Pt is agreeable to going to SNF but only to [facility] and if there are no beds available there he wants to go home with HHC/PT. This was discussed with the pt that it is not recommended that he go home with HHC/PT as he is high risk for falls and for readmission but the pt is refusing any facility other than [facility]. Pt Condition on Discharge: Stable Discharge Instructions DIET: Follow Instructions for: Heart Healthy Diet Activities you can perform: Regular-No Restrictions Follow up Referrals: PCP Follow-up - [address] Buck Barton New Medications: Levofloxacin (Levaquin) 500 Mg Tab 500 MG PO Q48H uti #4 TAB Nifedipine ER 24 HR (Nifedipine ER 24 HR) 30 Mg Tab 30 MG PO DAILY Blood Pressure Management #31 TAB Continued Medications: Latanoprost Opth Drops (Latanoprost Opth Drops) 0.005% Drops 1 DROP EACH EYE HS Refrigerate until opened. Glaucoma #2.5 Ref 0 ML Lavern Bravo Nov 15, 2016 11:30 Houston Wade MD Nov 15, 2016 12:38
[2016-11-15 11:56] VITALS: BP 137/70; PULSE 85; RESP 16; TEMP 96; O2SAT 98
[2016-11-15] MEDS ORDERED: ULTR50TA5 PO (12:37)
[2016-11-15] MEDS ORDERED: NIFE30TA8 PO (12:37)
[2016-11-15] MEDS ORDERED: LEVA500T PO (12:37)
[2016-11-15] MEDS ORDERED: COLCHICINE 0.6 MG TAB PO ONE (12:45)
[2016-11-15] MEDS: LEVOFLOXACIN 500 MG TAB PO SCH (14:42)
[2016-11-15 16:00] VITALS: BP 147/76; PULSE 76; RESP 17; TEMP 96.3; O2SAT 98
== END 2016-11-15 18:07 | DRG 683 ==
LOC: NEPE 09:58 → NEDA 12:18 → NEPHCDU 15:23 → OBSVTOIN 11-09 09:25 → N07B 11-10 15:33
PROVIDERS: ADMIT Hospitalist; ATTEND Hospitalist
DX: N17.9 Acute kidney failure, unspecified (principal); N39.0 Urinary tract infection, site not specified; I27.2 Other secondary pulmonary hypertension; M17.0 Bilateral primary osteoarthritis of knee; N18.4 Chronic kidney disease, stage 4 (severe); E86.0 Dehydration; I12.9 Hypertensive chronic kidney disease with stage 1 through stage 4 chronic kidney disease, or unspecified chronic kidney disease; K21.9 Gastro-esophageal reflux disease without esophagitis; M51.36 Other intervertebral disc degeneration, lumbar region; N40.0 Benign prostatic hyperplasia without lower urinary tract symptoms; M10.061 Idiopathic gout, right knee; B96.20 Unspecified Escherichia coli [E. coli] as the cause of diseases classified elsewhere
CPT/HCPCS: 71010; 71020; 73564; 80048; 81001; 83605; 83735; 85025; 85652; 86140; 87040; 87077; 87086; 87186; 93005; G0378; G8987-GP; G8988-GP; J1885; J2543; J2930; J3480

== ENCOUNTER 2017-08-19 11:10 | Inpatient (IN) | payer MEDICARE ==
[~2017-08-19] VITALS: Ht 175.3 cm; Wt 58.6 kg
[2017-08-19] VITALS (7 sets, daily range): BP systolic 126–155; BP diastolic 65–89; PULSE 83–98; RESP 16–18; TEMP 97.3–98.3; O2SAT 90–98
[~2017-08-19 11:10] MED LIST: LATA0.002 EACH EYE; LEVA500T PO; NIFE30TA8 PO; TRAM50 PO
[2017-08-19] MEDS ORDERED: SODIUM CHLORIDE 0.9% FLUSH 10 ML FLUSH IV FLUSH PRN (11:15)
[2017-08-19] MEDS ORDERED: SODIUM CHLORID 0.9% 500 ML INJ 500 ML IV ONE ×2 (11:15→13:00)
--- NOTE | 2017-08-19 12:11 | PD ---
HPI Chief Complaint: General Weakness Time Seen by Provider: 11:15 Travel History International Travel<30 days: No Contact w/Intl Traveler<30days: No Traveled to known affect area: No History of Present Illness HPI Patient has an 87-year-old male presents emergency department for evaluation of generalized weakness. According to EMS the patient's friend/neighbor's called 911 because he has not been eating or drinking very well an basically stays on the couch all day. He lives at home alone after the of his . Has a history of only having one kidney congenitally. The patient most recently started on azithromycin by primary care physician for unknown reason. Patient appears fairly run down on arrival, he does state that he has not been eating or drinking very well, denies any physical symptoms denies any chest pain shortness of breath abdominal pain nausea vomiting head injury headache neck pain back pain or extremity pain. Symptoms are severe, for unknown duration, associated sinus symptoms as above, context as above. PFSH Past Medical History Arthritis: No Asthma: No Autoimmune Disease: No Blood Disorders: No Anxiety: No Cancer: Yes (COLON CANCER) Cardiovascular Problems: No High Cholesterol: No Chest Pain: No Congestive Heart Failure: No COPD: No Cerebrovascular Accident: No Diminished Hearing: No Endocrine: No Gastrointestinal Disorders: Yes (COLON BLOCKAGE,COLOSTOMY, HX STOMACH ULCER) GERD: No Glaucoma: No Gout: Yes Genitourinary: Yes (RT KIDNEY NONFUNCTIONAL) Headaches: No Hepatitis: No Hiatal Hernia: Yes Hypertension: Yes Immune Disorder: No Kidney Stones: Yes (NEW ONSET) Musculoskeletal: No Neurologic: No Psychiatric: No Reproductive: No Respiratory: No Immunizations Current: Yes Myocardial Infarction: No Renal Failure: Yes (STAGE 4, ONLY HAS 1 KIDNEY) Seizures: No Sickle Cell Disease: No Sleep Apnea: No Thyroid Disease: No Ulcer: Yes Tetanus Vaccination: Unknown Influenza Vaccination: No ?: Not Past Surgical History Abdominal Surgery: Yes (REPAIR OF PERFORATED ULCER, COLOSTOMY,UMBILICAL HERNIA REPAIR) AICD: No Cardiac Surgery: No Endocrine Surgery: No Eye Surgery: Yes (CATHRYN CATARACT REMOVED) Genitourinary Surgery: No Joint Replacement: No Pacemaker: No Thoracic Surgery: No Other Surgery: Yes (kidney removal) Social History Alcohol Use: No Tobacco Use: No Substance Use: No Allergies-Medications (Allergen,Severity, Reaction): Coded Allergies: acetaminophen (Verified Allergy, Severe, rash, 08/19/17) aspirin (Verified Allergy, Severe, rash, 08/19/17) ibuprofen (Verified Allergy, Severe, hives, 08/19/17) lorazepam (Verified Allergy, Severe, rash, 08/19/17) PT STATES MAKES HIM CRAZY Reported Meds & Prescriptions Reported Meds & Active Scripts Active Nifedipine ER 24 HR (Nifedipine) 30 Mg Tab 30 Mg PO DAILY Ultram (Tramadol HCl) 50 Mg Tab 50 Mg PO Q8H PRN Reported Azithromycin 250 Mg Tab 250 Mg PO DIRECTED Take 2 tabs (500 mg) on day 1 then 1 tab daily x 4 days. Methylprednisolone Dosepak (Methylprednisolone) 4 Dspk 4 Mg PO DIRECTED Per Pharmacist Direction Latanoprost Opth Drops (Latanoprost) 0.005% Drops 1 Drop EACH EYE HS Refrigerate until opened. Review of Systems Except as stated in HPI: all other systems reviewed are Neg Physical Exam Narrative GENERAL: Well-developed, emaciated in no obvious distress SKIN: Focused skin assessment warm/dry. HEAD: Atraumatic. Normocephalic. EYES: Pupils equal and round. No scleral icterus. No injection or drainage. ENT: No nasal bleeding or discharge. Mucous membranes pink and moist. TMs clear bilaterally, oropharynx clear moist NECK: Trachea midline. No JVD. CARDIOVASCULAR: Regular rate and rhythm. No murmur appreciated. RESPIRATORY: No accessory muscle use. Clear to auscultation. Breath sounds equal bilaterally. GASTROINTESTINAL: Abdomen soft, non-tender, nondistended. Hepatic and splenic margins not palpable. MUSCULOSKELETAL: No obvious deformities. No clubbing. No cyanosis. No edema. NEUROLOGICAL: Awake and alert. No obvious cranial nerve deficits. Motor grossly within normal limits. Normal speech. PSYCHIATRIC: Appropriate mood and affect; insight and judgment normal. Data Data Last Documented VS Vital Signs Date Time Temp Pulse Resp B/P (MAP) Pulse Ox O2 Delivery O2 Flow Rate FiO2 08/19/17 12:39 92 155/77 (103) 97 08/19/17 12:11 Nasal Cannula 2.00 08/19/17 11:26 97.3 18 Orders Orders Complete Blood Count With Diff (08/19/17 11:15) Comprehensive Metabolic Panel (08/19/17 11:15) Lipase (08/19/17 11:15) Lactic Acid (08/19/17 11:15) Prothrombin Time / Inr (Pt) (08/19/17 11:15) Act Partial Throm Time (Ptt) (08/19/17 11:15) Urinalysis - C+S If Indicated (08/19/17 11:15) Iv Access Insert/Monitor (08/19/17 11:15) Ecg Monitoring (08/19/17 11:15) Oximetry (08/19/17 11:15) Sodium Chloride 0.9% Flush (Ns Flush) (08/19/17 11:15) Electrocardiogram (08/19/17 11:15) Sodium Chlorid 0.9% 500 Ml Inj (Ns 500 M (08/19/17 11:15) Blood Culture (08/19/17 11:15) Creatine Kinase (Cpk) (08/19/17 11:15) Troponin I (08/19/17 11:15) Ckmb (Isoenzyme) Profile (08/19/17 11:15) Blood/Fluid Warmer Set Hi-Flow (08/19/17 11:18) Arterial Blood Gas (Abg) (08/19/17 ) Chest, Single Ap (08/19/17 ) Sodium Chlorid 0.9% 500 Ml Inj (Ns 500 M (08/19/17 13:00) Calcium Gluconate Inj (Calcium Gluconate (08/19/17 13:00) Insert Temp Sensing Solares Cath (08/19/17 12:47) Admit Order (Ed Use Only) (08/19/17 ) Labs Laboratory Tests Test 08/19/17 11:34 08/19/17 12:03 08/19/17 12:08 Blood Gas Puncture Site RT BRACHIAL Blood Gas Patient Temperature 98.6 Blood Gas HCO3 8 mmol/L Blood Gas Base Excess -19.3 mmol/L Blood Gas Oxygen Saturation 97 % Arterial Blood pH 7.18 Arterial Blood Partial Pressure CO2 21 mmHG Arterial Blood Partial Pressure O2 145 mmHG Arterial Blood Oxygen Content 20.5 Vol % Arterial Blood Carboxyhemoglobin 0.9 % Arterial Blood Methemoglobin 1.0 % Blood Gas Hemoglobin 14.9 G/DL Oxygen Delivery Device NASAL CANNULA Blood Gas Liter Flow 2 L/M White Blood Count 9.7 TH/MM3 Red Blood Count 5.34 MIL/MM3 Hemoglobin 14.5 GM/DL Hematocrit 45.3 % Mean Corpuscular Volume 84.8 FL Mean Corpuscular Hemoglobin 27.1 PG Mean Corpuscular Hemoglobin Concent 32.0 % Red Cell Distribution Width 13.3 % Platelet Count 425 TH/MM3 Mean Platelet Volume 7.8 FL Neutrophils (%) (Auto) 86.9 % Lymphocytes (%) (Auto) 5.7 % Monocytes (%) (Auto) 3.6 % Eosinophils (%) (Auto) 0.1 % Basophils (%) (Auto) 3.7 % Neutrophils # (Auto) 8.4 TH/MM3 Lymphocytes # (Auto) 0.6 TH/MM3 Monocytes # (Auto) 0.3 TH/MM3 Eosinophils # (Auto) 0.0 TH/MM3 Basophils # (Auto) 0.4 TH/MM3 CBC Comment DIFF FINAL Differential Comment Prothrombin Time 11.4 SEC Prothromb Time International Ratio 1.1 RATIO Activated Partial Thromboplast Time 35.4 SEC Blood Urea Nitrogen 135 MG/DL Creatinine 7.40 MG/DL Random Glucose 145 MG/DL Total Protein 8.8 GM/DL Albumin 3.2 GM/DL Calcium Level 9.2 MG/DL Alkaline Phosphatase 94 U/L Aspartate Amino Transf (AST/SGOT) 9 U/L Alanine Aminotransferase (ALT/SGPT) 9 U/L Total Bilirubin 0.3 MG/DL Sodium Level 137 MEQ/L Potassium Level 5.8 MEQ/L Chloride Level 111 MEQ/L Carbon Dioxide Level 11.1 MEQ/L Anion Gap 15 MEQ/L Estimat Glomerular Filtration Rate 7 ML/MIN Total Creatine Kinase 48 U/L Troponin I 0.14 NG/ML Lipase 1187 U/L Lactic Acid Level 2.3 mmol/L MDM Medical Decision Making Medical Screen Exam Complete: Yes Emergency Medical Condition: Yes Differential Diagnosis Dehydration, failure to thrive, urinary pneumonia, kidney failure, uremia, acidosis. Narrative Course Patient room in the emergency department, significant findings of acidosis with anion gap uremia significantly elevated some mild hyperkalemia without any EKG changes. Given calcium gluconate, a total of a liter of fluid of normal saline in the emergency department, he has had some urination, I recommend him from a Solares catheter but he would rather just collect his urine for measurement. Significant acute kidney failure with hyperkalemia or uremia an elevated creatinine to the 7 range, he has a history of having only one kidney congenitally. Discussed with Dr. Nails for admission he has agreeable. Hemodynamically stable. Troponin level likely elevated chronically, has no symptoms to support the diagnosis of acute coronary syndrome. Will hold heparinization at this time as I believe the risks outweigh the benefits. Critical Care Narrative Aggregate critical care time was 35 minutes. Time to perform other separately billable procedures was not included in the critical care time. My time did not include minutes spent treating any other patients simultaneously or on activities that did not directly contribute to the patient's treatment. The services I provided to this patient were to treat and/or prevent clinically significant deterioration that could result in: , disability, organ failure I provided critical care services requiring my management, as noted below: Chart data review, documentation time, medication orders and management, vital sign assessments/reviewing monitor data, ordering and reviewing lab tests, ordering and interpreting/reviewing x-rays and diagnostic studies, care of the patient and discussion of the patient with the admitting physicians. Diagnosis Primary Impression: Troponin level elevated Additional Impressions: Hyperkalemia, diminished renal excretion Acute renal failure Uremia Metabolic acidosis Failure to thrive in adult Admitting Information Admitting Physician Requests: Admit Condition: Cj Plunkett MD Aug 19, 2017 12:11
[2017-08-19 12:15] LABS: AUTOMATED NEUTROPHIL # 8.4 TH/MM3 (1.8-7.7); BASOPHIL # 0.4 TH/MM3 (0-0.2); BASOPHIL % 3.7 % (0.0-2.0); EOSINOPHIL % 0.1 % (0.0-4.0); HEMATOCRIT 45.3 % (39.0-51.0); HEMOGLOBIN 14.5 GM/DL (13.0-17.0); LYMPH % 5.7 % (9.0-44.0); LYMPHOCYTE # 0.6 TH/MM3 (1.0-4.8); MEAN CELL VOLUME 84.8 FL (80.0-100.0); MEAN CORPUSCULAR HEMOGLOBIN 27.1 PG (27.0-34.0); MEAN PLATELET VOLUME 7.8 FL (7.0-11.0); MONO % 3.6 % (0.0-8.0); MONOCYTE # 0.3 TH/MM3 (0-0.9); NEUT % 86.9 % (16.0-70.0); PLATELET COUNT 425 TH/MM3 (150-450); RED BLOOD COUNT 5.34 MIL/MM3 (4.50-5.90); RED CELL DISTRIBUTION WIDTH 13.3 % (11.6-17.2); WHITE BLOOD COUNT 9.7 TH/MM3 (4.0-11.0)
[2017-08-19] MEDS ORDERED: AZIT250T3 PO (12:15)
[2017-08-19] MEDS ORDERED: METH4PAK PO (12:15)
[2017-08-19 12:23] LABS: CHLORIDE 111 MEQ/L (98-107); SODIUM (NA) 137 MEQ/L (136-145)
[2017-08-19 12:26] LABS: CALCIUM 9.2 MG/DL (8.5-10.1)
[2017-08-19 12:27] LABS: ALBUMIN 3.2 GM/DL (3.4-5.0); BICARBONATE 11.1 MEQ/L (21.0-32.0); BLOOD UREA NITROGEN 135 MG/DL (7-18); GLUCOSE,RANDOM 145 MG/DL (74-106); LIPASE 1187 U/L (73-393)
[2017-08-19 12:30] LABS: ALT (GPT) 9 U/L (12-78); AST (GOT) 9 U/L (15-37); GLOMERULAR FILTRATION RATE 7 ML/MIN (>89)
[2017-08-19 12:31] LABS: TOTAL BILIRUBIN ADULT 0.3 MG/DL (0.2-1.0); TOTAL PROTEIN 8.8 GM/DL (6.4-8.2)
[2017-08-19 12:32] LABS: INTERNATIONAL NORMALIZED RATIO 1.1 RATIO; PROTHROMBIN TIME - PATIENT 11.4 SEC (9.8-11.6)
[2017-08-19 12:33] LABS: ALKALINE PHOSPHATASE 94 U/L (45-117)
[2017-08-19 12:35] LABS: TROPONIN I 0.14 NG/ML (0.02-0.05)
--- NOTE | 2017-08-19 12:52 | RADRPT ---
EXAM DATE/TIME: 08/19/2017 12:33 [facility] COMPARISON: CHEST PA & LAT, November 13, 2016, 8:32. INDICATIONS : Cough, MEDICAL HISTORY : None. SURGICAL HISTORY : None. ENCOUNTER: Initial ACUITY: 2 days PAIN SCORE: 0/10 LOCATION: Bilateral chest FINDINGS: The lungs are clear without infiltrate, nodule, or mass. There is no appreciable pleural effusion fo r technique. Heart and mediastinum are unremarkable. There are atherosclerotic calcifications of the aorta due to chronic atherosclerotic disease. CONCLUSION: No acute cardiopulmonary disease. Angela Wilder MD on August 19, 2017 at 12:50 Board Certified Radiologist. This report was verified electronically.
[2017-08-19] MEDS ORDERED: CALCIUM GLUCONATE INJ 1 GM in DEXTROSE 5% IN WATER 100ML INJ 100 ML IV ONE ×2 (13:00)
[2017-08-19] MEDS: SODIUM CHLOR 0.9% 1000 ML INJ 1,000 ML IV SCH (13:45)
--- NOTE | 2017-08-19 13:48 | HHI.HP ---
HPI Service [facility] Hospitalists Primary Care Physician Buck Barton MD Admission Diagnosis Hyperkalemia, Uremia, Acidosis, acute kidney failure. Chief Complaint: Weakness, decreased oral intake Travel History International Travel<30 Days: No Contact w/Intl Traveler <30 Da: No Traveled to Known Affected Are: No History of Present Illness Pleasant 87-year-old male who has experienced some general decline of late. He reports that he has been increasingly weak at home and is been unable to get any groceries as he lives alone and has no relatives. He reports that he has a "friend who lives in [place]" who comes to help him at times get groceries but hasn't been by a while. Patient reports she's been drinking water at home and trying to stay hydrated but has had little food or other nourishment in over a week. Denies fevers or chills. Denies any dysuria or hematuria. Denies any cough or phlegm production. Denies any hemoptysis or hematemesis. No hematochezia or melena. Denies chest pain. His initial workup in the ER was noted for metabolic acidosis with mildly elevated lactic acid and low bicarbonate with potassium of 5.8 and significant azotemia with B UN in the 130s and creatinine of 7.4. His baseline creatinines around 2.6-2.8. He was given IV fluid in the ER and feels somewhat better now but is still weak and cachectic appearing. On exam he seems generally alert and appropriate but is a bit off and his orientation to time as he believes the month to be April 2018. He reports that he takes a blood pressure medication and 2 eyedrops and apparently no other medications although he reported apparently to the ER physician that he had been on azithromycin, however I do not find this in his outpatient medicines list. Review of Systems Constitutional: COMPLAINS OF: Fatigue, Weight loss, Change in appetite Endocrine: DENIES: Heat/cold intolerance, Polydipsia, Polyuria, Polyphagia Eyes: DENIES: Blurred vision, Diplopia, Eye inflammation, Eye pain, Vision loss , Photosensitivity, Double Vision Ears, nose, mouth, throat: COMPLAINS OF: Hearing loss, DENIES: Tinnitus, Vertigo, Nasal discharge, Oral lesions, Throat pain, Hoarseness, Ear Pain, Running Nose, Epistaxis, Sinus Pain, Toothache, Odynophagia Respiratory: DENIES: Apneas, Cough, Snoring, Wheezing, Hemoptysis, Sputum production, Shortness of breath Cardiovascular: DENIES: Chest pain, Palpitations, Syncope, Dyspnea on Exertion , PND, Lower Extremity Edema, Orthopnea, Claudication Gastrointestinal: DENIES: Abdominal pain, Black stools, Bloody stools, BRB per rectum, Constipation, Diarrhea, GERD, Nausea, Reflux, Vomiting, Difficulty Swallowing, Anorexia, See HPI Musculoskeletal: COMPLAINS OF: Joint pain, Back pain Hematologic/lymphatic: DENIES: Bruising, Lymphadenopathy Immunologic/allergic: DENIES: Eczema, Urticaria Neurologic: COMPLAINS OF: Poor Balance Psychiatric: COMPLAINS OF: Confusion, DENIES: Anxiety, Mood changes, Depression , Hallucinations, Agitation, Suicidal Ideation, Homicidal Ideation, Delusions, History of Bipolar, History of Schizophrenia Past Family Social History Past Medical History GERD Gout CKD, stage 4 Osteoarthritis HTN Paroxysmal ventricular tachycardia Pulmonary HTN Lumbar disc disease Hx of PUD Hx of adenocarcinoma of the colon in 2012 Past Surgical History Exploratory lap with loop colostomy on 07/05/[address] Torrez Subsequently had a colonoscopy on 09-02-13 that showed an adenomatous appearing polyps of the cecum and a colon cancer of the rectosigmoid colon Exploratory laparotomy with extended left hemicolectomy and closure of colostomy on 09-09-[address] Torrez Arthrocentesis of the right knee on 07/08/13 Cataract surgery bilaterally Inguinal hernia repair Reported Medications Metoprolol 25mg bid Tramadol 50mg tid prn pain Dorzolamide ggts 1 drop bid bilat eyes latanoprost ggts 1 drop qhs bilat eyes reportedly zpack recently initiated but I find no such confirmation in outpatient records. Allergies: Coded Allergies: acetaminophen (Verified Allergy, Severe, rash, 08/19/17) aspirin (Verified Allergy, Severe, rash, 08/19/17) ibuprofen (Verified Allergy, Severe, hives, 08/19/17) lorazepam (Verified Allergy, Severe, rash, 08/19/17) PT STATES MAKES HIM CRAZY Family History NC Social History No tobacco since 1989, but smoked 1/2 ppd for 50 yrs prior No EtOH. 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 Physical Exam Vital Signs Vital Signs Date Time Temp Pulse Resp B/P (MAP) Pulse Ox O2 Delivery O2 Flow Rate FiO2 08/19/17 12:39 92 155/77 (103) 97 08/19/17 12:11 90 Nasal Cannula 2.00 08/19/17 11:26 97.3 98 18 126/85 (99) 92 Physical Exam GENERAL: This is a cachectic appearing, well-developed patient, in no apparent distress. Alert. Cooperative. SKIN: Xerotic. HEAD: Atraumatic. Normocephalic. No temporal or scalp tenderness. Slight bitemporal wasting. EYES: Pupils equal round and reactive. Extraocular motions intact. No scleral icterus. No injection or drainage. ENT: Nose without bleeding, purulent drainage or septal hematoma. Mucous membranes dry. Airway patent. NECK: Trachea midline. No JVD or lymphadenopathy. Supple, nontender, no meningeal signs. CARDIOVASCULAR: Regular rate and rhythm with no obvious murmur or rub. RESPIRATORY: Clear to auscultation. Breath sounds equal bilaterally. No wheezes , rales, or rhonchi. GASTROINTESTINAL: Abdomen soft, non-tender, scaphoid, nondistended. No hepato- splenomegaly, or palpable masses. No guarding. MUSCULOSKELETAL: Extremities without clubbing, cyanosis, or edema. No joint tenderness, effusion, or edema noted. No calf tenderness. NEUROLOGICAL: Awake and alert. Cranial nerves II through XII intact. Motor and sensory grossly within normal limits. Five out of 5 muscle strength in all muscle groups. Normal speech although he is a bit hard of hearing. Laboratory Laboratory Tests Test 08/19/17 11:34 08/19/17 12:03 08/19/17 12:08 Blood Gas Puncture Site RT BRACHIAL Blood Gas Patient Temperature 98.6 Blood Gas HCO3 8 Blood Gas Base Excess -19.3 Blood Gas Oxygen Saturation 97 Arterial Blood pH 7.18 Arterial Blood Partial Pressure CO2 21 Arterial Blood Partial Pressure O2 145 Arterial Blood Oxygen Content 20.5 Arterial Blood Carboxyhemoglobin 0.9 Arterial Blood Methemoglobin 1.0 Blood Gas Hemoglobin 14.9 Oxygen Delivery Device NASAL CANNULA Blood Gas Liter Flow 2 White Blood Count 9.7 Red Blood Count 5.34 Hemoglobin 14.5 Hematocrit 45.3 Mean Corpuscular Volume 84.8 Mean Corpuscular Hemoglobin 27.1 Mean Corpuscular Hemoglobin Concent 32.0 Red Cell Distribution Width 13.3 Platelet Count 425 Mean Platelet Volume 7.8 Neutrophils (%) (Auto) 86.9 Lymphocytes (%) (Auto) 5.7 Monocytes (%) (Auto) 3.6 Eosinophils (%) (Auto) 0.1 Basophils (%) (Auto) 3.7 Neutrophils # (Auto) 8.4 Lymphocytes # (Auto) 0.6 Monocytes # (Auto) 0.3 Eosinophils # (Auto) 0.0 Basophils # (Auto) 0.4 CBC Comment DIFF FINAL Differential Comment Prothrombin Time 11.4 Prothromb Time International Ratio 1.1 Activated Partial Thromboplast Time 35.4 Blood Urea Nitrogen 135 Creatinine 7.40 Random Glucose 145 Total Protein 8.8 Albumin 3.2 Calcium Level 9.2 Alkaline Phosphatase 94 Aspartate Amino Transf (AST/SGOT) 9 Alanine Aminotransferase (ALT/SGPT) 9 Total Bilirubin 0.3 Sodium Level 137 Potassium Level 5.8 Chloride Level 111 Carbon Dioxide Level 11.1 Anion Gap 15 Estimat Glomerular Filtration Rate 7 Total Creatine Kinase 48 Troponin I 0.14 Lipase 1187 Lactic Acid Level 2.3 Date/Time Source Procedure Growth Status 08/19/17 12:08 Blood Peripheral Aerobic Blood Culture Pending Received 08/19/17 12:08 Blood Peripheral Anaerobic Blood Culture Pending Received Result Diagram: 08/19/17 1203 08/19/17 1203 Caprini VTE Risk Assessment Caprini VTE Risk Assessment: Mod/High Risk (score >= 2) Caprini Risk Assessment Model Point Value = 1 Point Value = 2 Point Value = 3 Point Value = 5 Age 41-60 Minor surgery BMI > 25 kg/m2 Swollen legs Varicose veins or History of unexplained or recurrent spontaneous Oral contraceptives or hormone replacement Sepsis (< 1 month) Serious lung disease, including pneumonia (< 1 month) Abnormal pulmonary function Acute myocardial infarction Congestive heart failure (< 1 month) History of inflammatory bowel disease Medical patient at bed rest Age 61-74 Arthroscopic surgery Major open surgery (> 45 min) Laparoscopic surgery (> 45 min) Malignancy Confined to bed (> 72 hours) Immobilizing plaster cast Central venous access Age >= 75 History of VTE Family history of VTE Factor V Leiden Prothrombin [id number] Lupus anticoagulant Anticardiolipin antibodies Elevated serum homocysteine Heparin-induced thrombocytopenia Other congenital or acquired thrombophilia Stroke (< 1 month) Elective arthroplasty Hip, pelvis, or leg fracture Acute spinal cord injury (< 1 month) Prophylaxis Regimen Total Risk Factor Score Risk Level Prophylaxis Regimen 0-1 Low Early ambulation 2 Moderate Order ONE of the following: *Sequential Compression Device (SCD) *Heparin 5000 units SQ BID 3-4 Higher Order ONE of the following medications: *Heparin 5000 units SQ TID *Enoxaparin/Lovenox 40 mg SQ daily (WT < 150 kg, CrCl > 30 mL/min) *Enoxaparin/Lovenox 30 mg SQ daily (WT < 150 kg, CrCl > 10-29 mL/min) *Enoxaparin/Lovenox 30 mg SQ BID (WT < 150 kg, CrCl > 30 mL/min) AND/OR *Sequential Compression Device (SCD) 5 or more Highest Order ONE of the following medications: *Heparin 5000 units SQ TID (Preferred with Epidurals) *Enoxaparin/Lovenox 40 mg SQ daily (WT < 150 kg, CrCl > 30 mL/min) *Enoxaparin/Lovenox 30 mg SQ daily (WT < 150 kg, CrCl > 10-29 mL/min) *Enoxaparin/Lovenox 30 mg SQ BID (WT < 150 kg, CrCl > 30 mL/min) AND *Sequential Compression Device (SCD) Assessment and Plan Problem List: (1) Acute renal failure ICD Codes: N17.9 - Acute kidney failure, unspecified Status: Acute Plan: likely a/w with decreased intake and recent illness. Will try gentle hydration. Possible some degree of underlying ATN. Will have nephrology see pt if not improving with IVF. Monitor electrolytes (2) Acute worsening of stage 4 chronic kidney disease ICD Codes: N28.9 - Disorder of kidney and ureter, unspecified; N18.4 - Chronic kidney disease, stage 4 (severe) Status: Acute Plan: as above (3) Troponin level elevated ICD Codes: R74.8 - Abnormal levels of other serum enzymes Status: Acute Plan: likely a/w ADRIEN and poor clearance. (4) Hyperkalemia, diminished renal excretion ICD Codes: E87.5 - Hyperkalemia Status: Chronic Plan: Will hydrate. Has been given Calcium gluconate. Repeat. Monitor Tele (5) HTN (hypertension) ICD Codes: I10 - Essential (primary) hypertension Status: Chronic Plan: fair control. Monitor. Will use BB Assessment and Plan Hopefully renal indices will improve with IV hydration. Patient will need case management assistance with possible long-term placement. He reports he is considered PRISON placement before but does not want to leave his home. Discussed end-of-life issues with him and the possibility of hospice who could come into his home and assist with some of his ADLs if he qualified. He reports he'll think about it and we can talk about that further the next couple of days. Code Status full Discussed Condition With Patient and ER provider Physician Certification 2 Midnight Certification Type: Admission for Inpatient Services Order for Inpatient Services The services are ordered in accordance with Medicare regulations or non- Medicare payer requirements, as applicable. In the case of services not specified as inpatient-only, they are appropriately provided as inpatient services in accordance with the 2-midnight benchmark. Estimated LOS (days): 3 days is the estimated time the patient will need to remain in the hospital, assuming treatment plan goals are met and no additional complications. Post-Hospital Plan: Not yet determined Problem Qualifiers (1) HTN (hypertension): Qualified Codes: I10 - Essential (primary) hypertension Gabriel Nails MD PhD Aug 19, 2017 13:48
[2017-08-19 18:24] LABS: BICARBONATE 11.1 MEQ/L (21.0-32.0); CALCIUM 8.8 MG/DL (8.5-10.1)
[2017-08-19 18:30] LABS: CREATININE 6.3 MG/DL (0.60-1.30)
[2017-08-19 18:44] LABS: TROPONIN I 0.15 NG/ML (0.02-0.05)
[2017-08-19] MEDS ORDERED: SODIUM POLYSTYRENE SULFONATE SUSP 15 GM/60 ML CUP PO ONE (19:15)
[2017-08-20] VITALS (7 sets, daily range): BP systolic 95–141; BP diastolic 70–89; PULSE 82–95; RESP 16–20; TEMP 96–98.4; O2SAT 94–99
[2017-08-20] MEDS: SODIUM CHLOR 0.9% 1000 ML INJ 1,000 ML IV SCH (02:09)
[2017-08-20 06:58] LABS: ALBUMIN 2.7 GM/DL (3.4-5.0); ALKALINE PHOSPHATASE 72 U/L (45-117); ALT (GPT) 7 U/L (12-78); AST (GOT) 9 U/L (15-37); BICARBONATE 14.3 MEQ/L (21.0-32.0); BLOOD UREA NITROGEN 120 MG/DL (7-18); CALCIUM 8.5 MG/DL (8.5-10.1); CHLORIDE 116 MEQ/L (98-107); GLOMERULAR FILTRATION RATE 9 ML/MIN (>89); GLUCOSE,RANDOM 80 MG/DL (74-106); LIPASE 1617 U/L (73-393); SODIUM (NA) 142 MEQ/L (136-145); TOTAL BILIRUBIN ADULT 0.3 MG/DL (0.2-1.0); TROPONIN I 0.16 NG/ML (0.02-0.05)
--- NOTE | 2017-08-20 08:31 | HHI.PR ---
Subjective Remarks Stronger today. Had 2 episodes of loose stool last night. No vomiting. No abdominal pain. He is a bit hesitant to eat any food he says given that he had diarrhea. Objective Vitals Vital Signs Date Time Temp Pulse Resp B/P (MAP) Pulse Ox O2 Delivery O2 Flow Rate FiO2 08/20/17 08:00 96.4 82 20 131/84 (100) 97 08/20/17 04:00 98.4 82 16 130/71 (90) 96 08/20/17 00:00 98.3 89 16 141/89 (106) 94 08/19/17 20:30 89 08/19/17 20:00 98.3 89 16 141/89 (106) 94 08/19/17 16:00 98.3 83 18 139/77 (97) 94 08/19/17 14:47 08/19/17 13:58 86 126/65 (85) 98 Nasal Cannula 2.00 08/19/17 12:39 92 155/77 (103) 97 08/19/17 12:11 90 Nasal Cannula 2.00 08/19/17 11:26 97.3 98 18 126/85 (99) 92 GENERAL: Thin, alert and oriented. More interactive today. SKIN: Warm and dry. HEAD: Normocephalic. Mild temporal wasting. EYES: No scleral icterus. No injection or drainage. NECK: Supple, trachea midline. No JVD or lymphadenopathy. CARDIOVASCULAR: Regular rate and rhythm without murmurs, gallops, or rubs. RESPIRATORY: Breath sounds equal bilaterally. No accessory muscle use. GASTROINTESTINAL: Abdomen soft, non-tender, nondistended. No guarding or rebound. Bowel sounds normal. MUSCULOSKELETAL: No cyanosis, or edema. BACK: No CVA tenderness. Result Diagram: 08/19/17 1203 08/20/17 0600 Urinary Catheter: No Vascular Central Line Catheter: No A/P Problem List: (1) Acute renal failure ICD Codes: N17.9 - Acute kidney failure, unspecified Status: Acute Plan: likely a/w with decreased intake and recent illness. Will try gentle hydration. Possible some degree of underlying ATN. Will have nephrology see pt if not improving with IVF. Monitor electrolytes. Add bicarbonate to IV fluid. (2) Acute worsening of stage 4 chronic kidney disease ICD Codes: N28.9 - Disorder of kidney and ureter, unspecified; N18.4 - Chronic kidney disease, stage 4 (severe) Status: Acute Plan: as above Renal ultrasound pending. (3) Troponin level elevated ICD Codes: R74.8 - Abnormal levels of other serum enzymes Status: Acute Plan: likely a/w ADRIEN and poor clearance. No chest pain. (4) Hyperkalemia, diminished renal excretion ICD Codes: E87.5 - Hyperkalemia Status: Chronic Plan: Will hydrate. Has been given Calcium gluconate. Repeat. Monitor Tele Potassium improved. (5) HTN (hypertension) ICD Codes: I10 - Essential (primary) hypertension Status: Chronic Plan: fair control. Monitor. Will use BB (6) Elevated lipase ICD Codes: R74.8 - Abnormal levels of other serum enzymes Plan: Questionable etiology. Doubt significant pancreatitis given his negative abdominal exam. Discharge Planning Discussed social issues with patient at length. He lives alone and is not interested in assisted living facility or SNF. We also discussed end-of-life issues and he is interested in discussing possibilities of hospice. I will place hospice consult. He had no preference as to which group saw him. Problem Qualifiers (1) HTN (hypertension): Qualified Codes: I10 - Essential (primary) hypertension Garbiel Nails MD PhD Aug 20, 2017 08:31
[2017-08-20] MEDS: CALCIUM CARBONATE 500 MG CHEWABLE TAB CHEW SCH ×2 (09:00→22:17)
--- NOTE | 2017-08-20 10:23 | RADRPT ---
EXAM DATE/TIME: 08/20/2017 07:53 [facility] COMPARISON: No previous studies available for comparison. INDICATIONS : Acute kidney disease. MEDICAL HISTORY : Hypertension. Carcinoma, colon. Hearing loss. Dentures. Confusion. Stomach ulcer. Hiatal hernia. Re nal failure. Right kidney nonfunctional. Kidney stones. Hypoglycemia. Diabetes. GOUT. SURGICAL HISTORY : Nephrectomy, right. Bilateral cataract surgery. Colostomy. ENCOUNTER: Initial ACUITY: 1 day PAIN SCORE: 1/10 LOCATION: Bilateral flank MEASUREMENTS: RIGHT KIDNEY: Not visualized. LEFT KIDNEY: Not visualized. FINDINGS: RIGHT KIDNEY: Unable to visualize the right kidney. Prior report from a CT scan states the kidney is atrophic. LEFT KIDNEY: Overlying bowel gas prevents visualization the left kidney. BLADDER: There is layering debris within the dependent portion of the urinary bladder. No mass or shadowing ec hogenic foci. No appreciable wall thickening. Fluid-filled loops of bowel are seen within the right upper quadrant of the abdomen. CONCLUSION: Lack of visualization of both kidneys as detailed above. Layering debris within the urinary bladder. Jacobo Jimenez Jr., MD on August 20, 2017 at 10:17 Board Certified Radiologist. This report was verified electronically.
[2017-08-20] MEDS: SODIUM BICARBONATE 8.4% INJ 50 MEQ in SODIUM CHLOR 0.9% 1000 ML INJ 1,000 ML IV SCH (10:30)
--- NOTE | 2017-08-20 19:41 | EKG ---
Date Performed: 08/19/2017 Time Performed: 11:36:52 PTAGE: 87 years EKG: Sinus rhythm WITH OCCASIONAL VENTRICULAR PREMATURE COMPLEXES POSSIBLE LEFT ATRIAL ENLARGEMENT MARKED LEFT AXIS DE VIATION RIGHT BUNDLE BRANCH BLOCK POSSIBLE LEFT VENTRICULAR HYPERTROPHY POSSIBLE ANTERIOR MYOCARDIAL INFARCTION ST DEPRESSION, CONSIDER SUBENDOCARDIAL INJURY ABNORMAL ECG PREVIOUS TRACING : 11/08/2016 10.20 Since previous tracing, no significant change noted DOCTOR: Lina Pal Interpretating Date/Time 08/20/2017 19:39:17
[2017-08-21] VITALS: BP 131/86; PULSE 82; RESP 16; TEMP 96.8; O2SAT 97
[2017-08-21 04:00] VITALS: BP 124/71; PULSE 83; RESP 16; TEMP 96.5; O2SAT 99
--- NOTE | 2017-08-21 06:29 | HHI.PR ---
Subjective Remarks Reports that he is feeling stronger. No more diarrhea. Good urine output. Reports that he tolerated oral intake well. Objective Vitals Vital Signs Date Time Temp Pulse Resp B/P (MAP) Pulse Ox O2 Delivery O2 Flow Rate FiO2 08/21/17 04:00 96.5 83 16 124/71 (88) 99 08/21/17 00:00 96.8 82 16 131/86 (101) 97 08/20/17 21:00 95 08/20/17 20:00 97.0 88 16 95/70 (78) 99 08/20/17 16:00 96.6 86 20 115/87 (96) 96 08/20/17 12:00 96.0 90 20 119/81 (94) 98 08/20/17 08:00 96.4 82 20 131/84 (100) 97 GENERAL: Thin, alert and oriented. Pleasant and cooperative. No acute distress. SKIN: Somewhat xerotic. HEAD: Normocephalic. Mild temporal wasting. EYES: No scleral icterus. No injection or drainage. NECK: Supple, trachea midline. No JVD or lymphadenopathy. CARDIOVASCULAR: Regular rate and rhythm without murmurs, gallops, or rubs. RESPIRATORY: Breath sounds equal bilaterally. No accessory muscle use. GASTROINTESTINAL: Abdomen soft, non-tender, nondistended. No guarding or rebound. Bowel sounds normal. MUSCULOSKELETAL: No cyanosis, clubbing or edema. BACK: No CVA tenderness. Result Diagram: 08/19/17 1203 08/20/17 0600 Urinary Catheter: No Vascular Central Line Catheter: No A/P Problem List: (1) Acute renal failure ICD Codes: N17.9 - Acute kidney failure, unspecified Status: Acute Plan: likely a/w with decreased intake and recent illness. Possible some degree of underlying ATN. Renal indices had been improving. Monitor electrolytes. Add bicarbonate to IV fluid. A.m. labs pending. (2) Acute worsening of stage 4 chronic kidney disease ICD Codes: N28.9 - Disorder of kidney and ureter, unspecified; N18.4 - Chronic kidney disease, stage 4 (severe) Status: Acute Plan: as above Renal ultrasound pending. (3) Troponin level elevated ICD Codes: R74.8 - Abnormal levels of other serum enzymes Status: Acute Plan: likely a/w ADRIEN and poor clearance. No chest pain. Doubt cardiac etiology. (4) Hyperkalemia, diminished renal excretion ICD Codes: E87.5 - Hyperkalemia Status: Chronic Plan: Will hydrate. Has been given Calcium gluconate. Repeat. Cardiac rhythm has been normal. Potassium improved. (5) HTN (hypertension) ICD Codes: I10 - Essential (primary) hypertension Status: Chronic Plan: fair control. Monitor. Will use BB (6) Elevated lipase ICD Codes: R74.8 - Abnormal levels of other serum enzymes Plan: Questionable etiology. Denies abdominal pain. Doubt significant pancreatitis given his negative abdominal exam. Discharge Planning Discussed social issues with patient at length. He lives alone and is not interested in assisted living facility or SNF. We also discussed end-of-life issues and he was receptive to hospice. Problem Qualifiers (1) HTN (hypertension): Qualified Codes: I10 - Essential (primary) hypertension Gabriel Nails MD PhD Aug 21, 2017 06:29
[2017-08-21 08:00] VITALS: BP 127/81; PULSE 96; RESP 20; TEMP 95.7; O2SAT 99
[2017-08-21 08:33] LABS: CHLORIDE 117 MEQ/L (98-107); SODIUM (NA) 143 MEQ/L (136-145)
[2017-08-21 08:36] LABS: CALCIUM 8.2 MG/DL (8.5-10.1)
[2017-08-21 08:37] LABS: ALBUMIN 2.4 GM/DL (3.4-5.0); BICARBONATE 16.7 MEQ/L (21.0-32.0); GLUCOSE,RANDOM 88 MG/DL (74-106); LIPASE 306 U/L (73-393)
[2017-08-21 08:44] LABS: ALKALINE PHOSPHATASE 69 U/L (45-117); ALT (GPT) 7 U/L (12-78); AST (GOT) 9 U/L (15-37); BLOOD UREA NITROGEN 107 MG/DL (7-18); GLOMERULAR FILTRATION RATE 12 ML/MIN (>89); TOTAL BILIRUBIN ADULT 0.4 MG/DL (0.2-1.0); TOTAL PROTEIN 6.5 GM/DL (6.4-8.2)
[2017-08-21] MEDS: CALCIUM CARBONATE 500 MG CHEWABLE TAB CHEW SCH ×2 (09:00→21:00)
[2017-08-21] MEDS: SODIUM BICARBONATE 8.4% INJ 50 MEQ in SODIUM CHLOR 0.9% 1000 ML INJ 1,000 ML IV SCH (11:30)
[2017-08-21 12:00] VITALS: BP 118/81; PULSE 80; RESP 20; TEMP 95.1; O2SAT 99
[2017-08-21 16:00] VITALS: BP 127/81; PULSE 103; RESP 20; TEMP 96.3; O2SAT 97
[2017-08-21 20:00] VITALS: BP 127/82; PULSE 86; RESP 18; TEMP 96; O2SAT 100
[2017-08-22] VITALS: BP 114/75; PULSE 89; RESP 20; TEMP 98; O2SAT 97
--- NOTE | 2017-08-22 07:02 | HHI.PR ---
Subjective Remarks Reports that he is feeling stronger day by day. He is quite opposed to going into any rehabilitation type facility at all. Reports that home docs should be coming to his house later today and that hospice will be visiting his well. Objective Vitals Vital Signs Date Time Temp Pulse Resp B/P (MAP) Pulse Ox O2 Delivery O2 Flow Rate FiO2 08/22/17 00:00 98.0 89 20 114/75 (88) 97 08/21/17 20:00 96.0 86 18 127/82 (97) 100 08/21/17 16:00 96.3 103 20 127/81 (96) 97 08/21/17 12:00 95.1 80 20 118/81 (93) 99 08/21/17 08:00 95.7 96 20 127/81 (96) 99 GENERAL: Thin, alert and oriented. Pleasant and cooperative. No acute distress. Patient is quite clear in his thought process currently. SKIN: Somewhat xerotic. HEAD: Normocephalic. Mild temporal wasting. EYES: No scleral icterus. No injection or drainage. NECK: No JVD or lymphadenopathy. CARDIOVASCULAR: Regular rate and rhythm without murmurs, gallops, or rubs. RESPIRATORY: Breath sounds equal bilaterally. No accessory muscle use. GASTROINTESTINAL: Abdomen soft, non-tender, nondistended. No guarding or rebound. Bowel sounds normal. MUSCULOSKELETAL: No cyanosis, clubbing or edema. BACK: No CVA tenderness. Result Diagram: 08/19/17 1203 08/21/17 0810 Urinary Catheter: No Vascular Central Line Catheter: No A/P Problem List: (1) Acute renal failure ICD Codes: N17.9 - Acute kidney failure, unspecified Status: Acute Plan: likely a/w with decreased intake and recent illness. Possible some degree of underlying ATN. Renal indices have been improving. Monitor electrolytes. Added bicarbonate to IV fluid. A.m. labs pending. (2) Acute worsening of stage 4 chronic kidney disease ICD Codes: N28.9 - Disorder of kidney and ureter, unspecified; N18.4 - Chronic kidney disease, stage 4 (severe) Status: Acute Plan: as above Renal ultrasound pending. (3) Troponin level elevated ICD Codes: R74.8 - Abnormal levels of other serum enzymes Status: Acute Plan: likely a/w ADRIEN and poor clearance. No chest pain. Doubt cardiac etiology. (4) Hyperkalemia, diminished renal excretion ICD Codes: E87.5 - Hyperkalemia Status: Chronic Plan: Will hydrate. Has been given Calcium gluconate. Repeat. Cardiac rhythm has been normal. Potassium improved. (5) HTN (hypertension) ICD Codes: I10 - Essential (primary) hypertension Status: Chronic Plan: fair control. Monitor. Will use BB if needed (6) Elevated lipase ICD Codes: R74.8 - Abnormal levels of other serum enzymes Plan: Questionable etiology. Denies abdominal pain. Doubt significant pancreatitis given his negative abdominal exam. Lipase normalized August 21. Discharge Planning Again discussed social issues with patient at length. He lives alone and is not interested in assisted living facility or SNF. He is also opposed any short -term rehabilitation stay. He reports he has home docs but come out to see him and are scheduled to see Mrs. afternoon. He is also interested in having hospice at home. I tried to encourage him to agree to at least 5 days at a rehabilitation for strengthening but he is still opposed at this point. We'll likely send him home later today with hospice depending on what his lab values reveal this morning. Problem Qualifiers (1) HTN (hypertension): Qualified Codes: I10 - Essential (primary) hypertension Gabriel Nails MD PhD Aug 22, 2017 07:02
[2017-08-22 07:06] LABS: CHLORIDE 115 MEQ/L (98-107); SODIUM (NA) 141 MEQ/L (136-145)
[2017-08-22 07:09] LABS: CALCIUM 7.7 MG/DL (8.5-10.1)
[2017-08-22 07:10] LABS: ALBUMIN 2.3 GM/DL (3.4-5.0); BICARBONATE 14.6 MEQ/L (21.0-32.0); GLUCOSE,RANDOM 100 MG/DL (74-106)
[2017-08-22 07:17] LABS: ALKALINE PHOSPHATASE 68 U/L (45-117); ALT (GPT) 8 U/L (12-78); AST (GOT) 8 U/L (15-37); BLOOD UREA NITROGEN 94 MG/DL (7-18); GLOMERULAR FILTRATION RATE 13 ML/MIN (>89); TOTAL BILIRUBIN ADULT 0.5 MG/DL (0.2-1.0); TOTAL PROTEIN 6.2 GM/DL (6.4-8.2)
[2017-08-22 07:50] VITALS: BP 123/68; PULSE 73; RESP 20; TEMP 96.8; O2SAT 99
[2017-08-22] MEDS ORDERED: POTASSIUM CHLORIDE 10 MEQ CONTROLLED RELEASE TAB PO ONE (08:30)
[2017-08-22] MEDS ORDERED: methylPREDNISolone SOD SUCC 40 MG/1 ML VIAL IV PUSH ONE (08:30)
[2017-08-22] MEDS: SODIUM BICARBONATE 8.4% INJ 50 MEQ in SODIUM CHLOR 0.9% 1000 ML INJ 1,000 ML IV SCH (09:00)
[2017-08-22] MEDS: CALCIUM CARBONATE 500 MG CHEWABLE TAB CHEW SCH ×2 (10:11→20:33)
[2017-08-22] MEDS: SODIUM BICARBONATE 8.4% INJ 75 MEQ in SODIUM CHLOR 0.9% 1000 ML INJ 1,000 ML IV SCH (11:30)
[2017-08-22 11:50] VITALS: BP 125/74; PULSE 76; RESP 20; TEMP 96.2; O2SAT 97
[2017-08-22 14:37] LABS: BILIRUBIN, URINE NEG (NEG); BLOOD, URINE LARGE (NEG); GLUCOSE,URINE NEG (NEG); KETONE, URINE NEG (NEG); NITRITE,URINE NEG (NEG); URINE LEUKOCYTE ESTERASE MOD (NEG)
[2017-08-22 14:39] LABS: URINE COLOR YELLOW (YELLW/STRAW)
[2017-08-22 14:42] LABS: SQUAMOUS EPITHELIAL CELL URINE 0-5 /hpf (0-5); WBC, URINE INNUM /hpf (0-5); WHITE BLOOD CELL CLUMPS MOD
[2017-08-22 14:43] LABS: BACTERIA, URINE FEW /hpf
[2017-08-22 15:50] VITALS: BP 128/76; PULSE 79; RESP 20; TEMP 96.5; O2SAT 97
[2017-08-22] MEDS: cefTRIAXone INJ 1,000 MG in SODIUM CHLORIDE 0.9% INJ 100 ML IV SCH (17:30)
[2017-08-22 20:00] VITALS: BP 121/78; PULSE 76; RESP 18; TEMP 96; O2SAT 100
[2017-08-23] VITALS: BP 141/88; PULSE 77; RESP 20; TEMP 96.6; O2SAT 99
[2017-08-23 06:48] LABS: CALCIUM 8.2 MG/DL (8.5-10.1)
[2017-08-23 06:49] LABS: BICARBONATE 16.9 MEQ/L (21.0-32.0)
[2017-08-23 06:55] LABS: CREATININE 3.6 MG/DL (0.60-1.30)
--- NOTE | 2017-08-23 07:39 | HHI.PR ---
Subjective Remarks Patient reports he feels much more energetic this morning. Actually told me that if I asked him to "run in the [place]" he thinks he can do it. No fevers or chills. Tolerating oral intake well. He seems to enjoy the boost supplement with meals. He is now agreeable to short-term stay at rehabilitation as long as it's not [facility] he says. Objective Vitals Vital Signs Date Time Temp Pulse Resp B/P (MAP) Pulse Ox O2 Delivery O2 Flow Rate FiO2 08/23/17 00:00 96.6 77 20 141/88 (105) 99 08/22/17 20:00 96.0 76 18 121/78 (92) 100 08/22/17 15:50 96.5 79 20 128/76 (93) 97 08/22/17 11:50 96.2 76 20 125/74 (91) 97 08/22/17 07:50 96.8 73 20 123/68 (86) 99 GENERAL: Thin, alert and oriented. Pleasant and cooperative. No acute distress. Patient remains quite clear in his thought processes. SKIN: Somewhat xerotic. HEAD: Normocephalic. Mild temporal wasting. EYES: No scleral icterus. No injection or drainage. NECK: No JVD or lymphadenopathy. CARDIOVASCULAR: Regular rate and rhythm without murmurs, gallops, or rubs. RESPIRATORY: Breath sounds equal bilaterally. No accessory muscle use. GASTROINTESTINAL: Abdomen soft, non-tender, nondistended. No guarding or rebound. Bowel sounds normal. MUSCULOSKELETAL: No cyanosis, clubbing or edema. BACK: No CVA tenderness. Result Diagram: 08/19/17 1203 08/23/17 0550 Urinary Catheter: No Vascular Central Line Catheter: No A/P Problem List: (1) Acute renal failure ICD Codes: N17.9 - Acute kidney failure, unspecified Status: Acute Plan: likely a/w with decreased intake and recent illness. Possible some degree of underlying ATN. Renal indices have been improving. Labs improving. Baseline creatinine around 2-1/2. (2) Acute worsening of stage 4 chronic kidney disease ICD Codes: N28.9 - Disorder of kidney and ureter, unspecified; N18.4 - Chronic kidney disease, stage 4 (severe) Status: Acute Plan: as above Renal ultrasound pending. (3) Troponin level elevated ICD Codes: R74.8 - Abnormal levels of other serum enzymes Status: Acute Plan: likely a/w ADRIEN and poor clearance. No chest pain. Doubt cardiac etiology. (4) Hyperkalemia, diminished renal excretion ICD Codes: E87.5 - Hyperkalemia Status: Chronic Plan: Encouraged continued hydration. Has been given Calcium gluconate. Repeat. Cardiac rhythm has been normal. Potassium improved. (5) HTN (hypertension) ICD Codes: I10 - Essential (primary) hypertension Status: Chronic Plan: fair control. Monitor. Will use BB if needed (6) Elevated lipase ICD Codes: R74.8 - Abnormal levels of other serum enzymes Plan: Questionable etiology. Denies abdominal pain. Doubt significant pancreatitis given his negative abdominal exam. Lipase normalized August 21. (7) Urine abnormality ICD Codes: R82.90 - Unspecified abnormal findings in urine Status: Acute Plan: Initial urine results were delayed so I repeated UA yesterday. Several abnormalities noted which could be associated with infection. Rocephin initiated 08/22/17. Continue antibiotic for now and as outpatient. Discharge Planning Again discussed social issues with patient at length. He lives alone and is not interested in assisted living facility or SNF. He had been opposed to any short-term rehabilitation but is now agreeable after further discussion with him yesterday. He has a specific request as to which institutions would be acceptable. I am hopeful that he will be discharged to [facility] or some other acceptable institution for short-term rehabilitation today. Problem Qualifiers (1) HTN (hypertension): Qualified Codes: I10 - Essential (primary) hypertension Gabriel Nails MD PhD Aug 23, 2017 07:39
[2017-08-23] MEDS ORDERED: Calcium Carbonate Chew CHEW (07:44)
[2017-08-23] MEDS ORDERED: CIPR-9 PO (07:44)
[2017-08-23] MEDS ORDERED: MULT1TAB64 PO (07:44)
--- NOTE | 2017-08-23 07:49 | HHI.DS ---
Discharge Summary Admission Date Aug 19, 2017 at 13:23 Admitting Diagnosis Hyperkalemia, Uremia, Acidosis, acute kidney failure. (1) Acute renal failure Diagnosis: Principal ICD Codes: N17.9 - Acute kidney failure, unspecified Status: Acute (2) Acute worsening of stage 4 chronic kidney disease Diagnosis: Principal ICD Codes: N28.9 - Disorder of kidney and ureter, unspecified; N18.4 - Chronic kidney disease, stage 4 (severe) Status: Acute (3) Troponin level elevated Diagnosis: Secondary ICD Codes: R74.8 - Abnormal levels of other serum enzymes Status: Acute (4) Hyperkalemia, diminished renal excretion Diagnosis: Principal ICD Codes: E87.5 - Hyperkalemia Status: Chronic (5) HTN (hypertension) Diagnosis: Secondary ICD Codes: I10 - Essential (primary) hypertension Status: Chronic (6) Elevated lipase Diagnosis: Secondary ICD Codes: R74.8 - Abnormal levels of other serum enzymes (7) Urine abnormality Diagnosis: Secondary ICD Codes: R82.90 - Unspecified abnormal findings in urine Status: Acute Brief History Pleasant 87-year-old male who has experienced some general decline of late. He reports that he has been increasingly weak at home and is been unable to get any groceries as he lives alone and has no relatives. He reports that he has a "friend who lives in [place]" who comes to help him at times get groceries but hasn't been by a while. Patient reports she's been drinking water at home and trying to stay hydrated but has had little food or other nourishment in over a week. Denies fevers or chills. Denies any dysuria or hematuria. Denies any cough or phlegm production. Denies any hemoptysis or hematemesis. No hematochezia or melena. Denies chest pain. His initial workup in the ER was noted for metabolic acidosis with mildly elevated lactic acid and low bicarbonate with potassium of 5.8 and significant azotemia with B UN in the 130s and creatinine of 7.4. His baseline creatinines around 2.6-2.8. He was given IV fluid in the ER and feels somewhat better now but is still weak and cachectic appearing. On exam he seems generally alert and appropriate but is a bit off and his orientation to time as he believes the month to be April 2018. He reports that he takes a blood pressure medication and 2 eyedrops and apparently no other medications although he reported apparently to the ER physician that he had been on azithromycin, however I do not find this in his outpatient medicines list. CBC/BMP: 08/19/17 1203 08/23/17 0550 Significant Findings Laboratory Tests Test 08/21/17 08:10 08/22/17 06:00 08/22/17 14:10 08/23/17 05:50 Blood Urea Nitrogen 107 MG/DL (7-18) 94 MG/DL (7-18) 83 MG/DL (7-18) Creatinine 4.70 MG/DL (0.60-1.30) 4.40 MG/DL (0.60-1.30) 3.60 MG/DL (0.60-1.30) Albumin 2.4 GM/DL (3.4-5.0) 2.3 GM/DL (3.4-5.0) Calcium Level 8.2 MG/DL (8.5-10.1) 7.7 MG/DL (8.5-10.1) 8.2 MG/DL (8.5-10.1) Aspartate Amino Transf (AST/SGOT) 9 U/L (15-37) 8 U/L (15-37) Alanine Aminotransferase (ALT/SGPT) 7 U/L (12-78) 8 U/L (12-78) Chloride Level 117 MEQ/L (98-107) 115 MEQ/L (98-107) 116 MEQ/L (98-107) Carbon Dioxide Level 16.7 MEQ/L (21.0-32.0) 14.6 MEQ/L (21.0-32.0) 16.9 MEQ/L (21.0-32.0) Estimat Glomerular Filtration Rate 12 ML/MIN (>89) 13 ML/MIN (>89) 16 ML/MIN (>89) Total Protein 6.2 GM/DL (6.4-8.2) Urine Turbidity CLOUDY (CLEAR) Urine Protein 100 mg/dL (NEG-TRACE) Urine Occult Blood LARGE (NEG) Urine Leukocyte Esterase MOD (NEG) Urine RBC 25-49 /hpf (0-3) Urine WBC INNUM /hpf (0-5) Urine WBC Clumps MOD (NONE) Urine Bacteria FEW /hpf (NONE) Random Glucose 124 MG/DL (74-106) Hospital Course Patient admitted for increased weakness and significant renal insufficiency on a background of chronic kidney disease stage IV. He was somewhat hyperkalemic and initiation of hospital care but quickly responded to IV fluids and calcium gluconate. He continued to improve from a renal standpoint with IV fluid. His oral intake was initially quite low but improved throughout the hospital course and he enjoyed the supplemental boost with meals. It is noted the patient lives alone and has been losing weight as he is not been eating much. He is also generally quite weak and will be going to skilled rehabilitation for short stay. We also discussed end-of-life issues and he is agreeable to hospice care due to failure to thrive and the acute kidney injury. Hospice evaluated the patient here and will follow him as an outpatient however it is unclear if he will qualify for long-term hospice services. Pt Condition on Discharge: Stable Discharge Disposition: Discharge to SNF Discharge Instructions DIET: Follow Instructions for: Heart Healthy Diet Speech Therapy-Diet Recommends: Regular Additional Diet Instructions: Boost TID with meals Activities you can perform: Weight Bearing as Stacie Other Activity Instructions: needs a/w ambulation/ transfers Follow up Referrals: PCP Follow-up New Orders: BASIC METABOLIC PROF - 2 Days New Medications: Ciprofloxacin (Cipro) 500 Mg Tab 500 MG PO BID for Infection, #8 TAB 0 Refills Multivit-Min/FA/Lycopen/Lutein (Centrum Silver Men Tablet) 300 Mcg-600 Mcg-300 Mcg Tablet 1 TAB PO DAILY for prev, #31 TAB [Calcium Carbonate Chew] () 500 MG CHEW 500 MG CHEW Q12HR for metabolic acidosis, #60 Continued Medications: Latanoprost Opth Drops (Latanoprost Opth Drops) 0.005% Drops 1 DROP EACH EYE HS for Glaucoma, #2.5 ML 0 Refills Refrigerate until opened. Discontinued Medications: Azithromycin (Azithromycin) 250 Mg Tab 250 MG PO DIRECTED for Infection, #6 TAB 0 Refills Take 2 tabs (500 mg) on day 1 then 1 tab daily x 4 days. Methylprednisolone Dosepak (Methylprednisolone Dosepak) 4 Dspk 4 MG PO DIRECTED for Inflammation, #1 DSPK 0 Refills Per Pharmacist Direction Nifedipine ER 24 HR (Nifedipine ER 24 HR) 30 Mg Tab 30 MG PO DAILY for htn, #30 TAB Tramadol (Ultram) 50 Mg Tab 50 MG PO Q8H PRN for pain , #20 TAB Gabriel Nails MD PhD Aug 23, 2017 07:49
[2017-08-23 07:50] VITALS: BP 165/94; PULSE 98; RESP 20; TEMP 96; O2SAT 98
[2017-08-23] MEDS: SODIUM BICARBONATE 8.4% INJ 75 MEQ in SODIUM CHLOR 0.9% 1000 ML INJ 1,000 ML IV SCH (10:00)
[2017-08-23] MEDS: CALCIUM CARBONATE 500 MG CHEWABLE TAB CHEW SCH (10:04)
[2017-08-23 11:50] VITALS: BP 123/71; PULSE 97; RESP 20; TEMP 96.2; O2SAT 97
[2017-08-23] MEDS ORDERED: TUMS500C CHEW (13:13)
[2017-08-23] MEDS ORDERED: CIPR500T2 PO (13:13)
[2017-08-23 15:50] VITALS: BP 167/90; PULSE 80; RESP 20; TEMP 97.5; O2SAT 98
[2017-08-23] MEDS: cefTRIAXone INJ 1,000 MG in SODIUM CHLORIDE 0.9% INJ 100 ML IV SCH (17:14)
== END 2017-08-23 18:22 | DRG 683 ==
LOC: PHED 11:10 → PHEDA 13:23 → PH3B 14:38
PROVIDERS: ADMIT Family Medicine; ATTEND Family Medicine
DX: N17.9 Acute kidney failure, unspecified (principal); R64 Cachexia; I27.20 Pulmonary hypertension, unspecified; Q60.0 Renal agenesis, unilateral; E87.5 Hyperkalemia; Z68.1 Body mass index [BMI] 19.9 or less, adult; R62.7 Adult failure to thrive; R63.4 Abnormal weight loss; R82.90 Unspecified abnormal findings in urine; R74.8 Abnormal levels of other serum enzymes; I12.9 Hypertensive chronic kidney disease with stage 1 through stage 4 chronic kidney disease, or unspecified chronic kidney disease; N18.4 Chronic kidney disease, stage 4 (severe); M10.9 Gout, unspecified; K21.9 Gastro-esophageal reflux disease without esophagitis; M19.90 Unspecified osteoarthritis, unspecified site; H40.9 Unspecified glaucoma; Z87.11 Personal history of peptic ulcer disease; Z85.038 Personal history of other malignant neoplasm of large intestine; Z87.891 Personal history of nicotine dependence
CPT/HCPCS: 36600; 71045; 76775; 80048; 80053; 81001; 82550; 82805; 83605; 83690; 84484; 85025; 85610; 85730; 87040; 87077; 87086; 87186; 93005; 96361; 96374; J0610; J0696; J2920; J7030; J7040

== ENCOUNTER 2018-04-24 17:25 | Inpatient (IN) ==
--- NOTE | 2018-04-24 18:03 | XR ---
EXAM DATE: 04/24/2018 5:46 PM EDT AGE/SEX: 87 years / Male INDICATIONS: Short of breath. CLINICAL DATA: This is the patient's initial encounter. Patient reports that signs and symptoms have been present for 1 day and indicates a pain score of 0/10. MEDICAL/SURGICAL HISTORY: Non-responsive. Non-responsive. COMPARISON: [facility], CHEST SINGLE AP, 08/19/2017. . FINDINGS: Portable AP view of the chest demonstrates a normal-sized cardiac silhouette with tortuous descending thoracic aorta. EKG lines overlie the patient. Lungs are underinflated and there is stable mild elev ation of the left hemidiaphragm with mild subsegmental atelectasis or scar at the left lung base. No effusion, consolidation, or pneumothorax is identified. The bones and soft tissues demonstrate no acu te abnormality. CONCLUSION: No acute cardiopulmonary abnormality is identified. Overall, stable exam. Electronically signed by: Master Diaz MD 04/24/2018 6:02 PM EDT
[2018-04-24 18:05] LABS: Baso # (Auto) 0.1 th/mm3 (0.0-0.2); Eos # (Auto) 0.1 th/mm3 (0.0-0.4); Eos % (Auto) 0.7 % (0.0-4.0); Hematocrit 42.1 % (39.0-51.0); Hemoglobin 13.7 gm/dL (13.0-17.0); Lymph # (Auto) 0.3 th/mm3 (1.0-4.8); Lymph % (Auto) 3.1 % (9.0-44.0); Mean Corpuscular HGB Conc 32.5 % (32.0-36.0); Mean Corpuscular Volume 86.1 fL (80.0-100.0); Mean Platelet Volume 8.2 fL (7.0-11.0); Mono # (Auto) 0.2 th/mm3 (0.0-0.9); Mono % (Auto) 1.6 % (0.0-8.0); Neut # (Auto) 8.7 th/mm3 (1.8-7.7); Neut % (Auto) 93.6 % (16.0-70.0); Platelet Count 357 th/mm3 (150-450); Red Blood Count 4.89 mil/mm3 (4.50-5.90); Red Cell Distribution Width 14.9 % (11.6-17.2); White Blood Count 9.4 th/mm3 (4.0-11.0)
[2018-04-24 18:17] LABS: Chloride 121 meq/L (98-107); Potassium 5.8 meq/L (3.5-5.1); Sodium 147 meq/L (136-145)
[2018-04-24 18:21] LABS: Albumin 2.8 g/dL (3.4-5.0); Anion Gap 17 meq/L (5-15); Calcium 7.9 mg/dL (8.5-10.1); Carbon Dioxide 9.5 meq/L (21.0-32.0); Glucose,Random 107 mg/dL (74-106); Lipase 705 U/L (73-393)
[2018-04-24 18:22] LABS: Activated Partial Thrombo Time 39.6 sec (24.3-30.1); INR 1.2 Ratio; Prothrombin Time 12.4 sec (9.8-11.6)
[2018-04-24 18:24] LABS: Alanine Aminotransferase 10 U/L (12-78); Aspartate Aminotransferase 8 U/L (15-37); Glomerular Filtration Rate 5 mL/min (>89)
[2018-04-24 18:26] LABS: Blood Urea Nitrogen 167 mg/dL (7-18); Total Protein 7.4 g/dL (6.4-8.2)
[2018-04-24 18:27] LABS: Alkaline Phosphatase 67 U/L (45-117)
[2018-04-24 18:29] LABS: Troponin I 0.12 ng/mL (0.02-0.05)
[2018-04-24 18:35] LABS: Creatine Kinase 98 U/L (39-308)
--- NOTE | 2018-04-24 18:51 | ED ---
HPI General Chief complaint: Weakness Stated complaint: Failure to thrive Time Seen by Provider: 04/24/18 17:46 History of Present Illness HPI narrative: 87-year-old male presented to the ER via [facility] due to failure to thrive. Patient has a friend/caregiver who checks on him every Sunday, today he went to check on him he saw that he has altered mental status, not responding to him, weak lethargic so he called the ambulance to bring him here. Currently in the ER he is unable to give any information about his condition, unable to answer any questions. He is only responding to painful stimuli. Patient was here back in July and from a quick chart review it seems that the patient has history of CKD, elevated troponin. Related Data Home Medications Medication Instructions Recorded Confirmed calcium carbonate [Tums] 1,000 mg PO DAILY 04/24/18 04/24/18 Previous Rx's Medication Instructions Recorded amoxicillin-pot clavulanate 1 tab PO Q12HR #6 tab 05/02/18 [Augmentin] dorzolamide 1 drop EACH EYE HS ml 05/02/18 latanoprost [Xalatan] 1 drop EACH EYE HS ml 05/02/18 megestrol 400 mg PO DAILY #120 ml 05/02/18 methyl salicylate-menthol 0 applicatio TOPICAL Q12H PRN #60 g 05/02/18 [Analgesic GRX Tie Siding] Allergies Allergy/AdvReac Type Severity Reaction Status Date / Time acetaminophen Allergy Severe rash Verified 08/19/17 12:56 aspirin Allergy Severe rash Verified 08/19/17 12:56 ibuprofen Allergy Severe hives Verified 08/19/17 12:56 lorazepam Allergy Severe rash Verified 08/19/17 12:56 Review of Systems ROS Unobtainable ROS Unobtainable: unobtainable due to mental status PMFSH Social History Social History Substance History: No History of Abuse Second Hand Smoke Exposure: No Smoking Status: Never smoker How Often Do You Have a Drink Containing Alcohol: Never Recent Travel in [facility] within the Last 8 Weeks: No Recent Out of Country Travel within the Last 8 Weeks: No Immunization History Tetanus Immunization: Unsure Hx Influenza Vaccine This Season: No Exam Narrative Exam Narrative: GENERAL: Only respond to painful stimuli, dry mucous membranes. SKIN: Focused skin assessment warm/dry. HEAD: Atraumatic. Normocephalic. EYES: Pupils equal and round. No scleral icterus. No injection or drainage. ENT: No nasal bleeding or discharge. Mucous membranes pink and moist. NECK: Trachea midline. No JVD. CARDIOVASCULAR: Regular rate and rhythm. No murmur appreciated. RESPIRATORY: No accessory muscle use. Clear to auscultation. Breath sounds equal bilaterally. GASTROINTESTINAL: Abdomen soft, non-tender, nondistended. Hepatic and splenic margins not palpable. MUSCULOSKELETAL: No obvious deformities. No clubbing. No cyanosis. No edema. NEUROLOGICAL: Awake and alert. No obvious cranial nerve deficits. Motor grossly within normal limits. Normal speech. PSYCHIATRIC: Appropriate mood and affect; insight and judgment normal. Course Initial Documented Vital Signs Pulse Rate 83 04/24/18 17:44 Respiratory Rate 16 04/24/18 17:44 Blood Pressure 188/80 H 04/24/18 17:44 Pulse Oximetry 98 04/24/18 17:44 Last Documented Vital Signs Temperature 97.8 F 05/02/18 16:00 Pulse Rate 80 05/02/18 16:00 Respiratory Rate 20 05/02/18 16:00 Blood Pressure 113/67 05/02/18 16:00 Pulse Oximetry 98 05/02/18 16:00 Medical Decision Making MDM Narrative Medical decision making narrative: 87 male here for altered mental status. Patient has history of chronic kidney disease, elevated troponins from previous admissions as well, patient unable to give any history, pending urinalysis, labs show acute kidney injury, patient aggressively hydrated, will be admitted for altered mental status and Marlee, will sign out to Dr. Khoury next shift pending urinalysis, I spoke with Dr. Barton who accepted the patient. Medical Screen Exam Complete: Yes Emergency Medical Condition: Yes Lab Data Result diagrams: 04/30/18 05:47 04/30/18 05:47 Lab Results 04/24/18 04/24/18 04/24/18 Range/Units 18:00 18:00 18:00 CBC w Diff Auto diff final WBC 9.4 (4.0-11.0) th/mm3 RBC 4.89 (4.50-5.90) mil/mm3 Hgb 13.7 (13.0-17.0) gm/dL Hct 42.1 (39.0-51.0) % MCV 86.1 (80.0-100.0) fL MCH 28.0 (27.0-34.0) pg MCHC 32.5 (32.0-36.0) % RDW 14.9 (11.6-17.2) % Plt Count 357 (150-450) th/mm3 MPV 8.2 (7.0-11.0) fL Neut % (Auto) 93.6 H (16.0-70.0) % Lymph % (Auto) 3.1 L (9.0-44.0) % Weston % (Auto) 1.6 (0.0-8.0) % Eos % (Auto) 0.7 (0.0-4.0) % Baso % (Auto) 1.0 (0.0-2.0) % Neut # (Auto) 8.7 H (1.8-7.7) th/mm3 Lymph # (Auto) 0.3 L (1.0-4.8) th/mm3 Weston # (Auto) 0.2 (0.0-0.9) th/mm3 Eos # (Auto) 0.1 (0.0-0.4) th/mm3 Baso # (Auto) 0.1 (0.0-0.2) th/mm3 WBC Differential . Differential Comment . PT 12.4 H (9.8-11.6) sec INR 1.2 Ratio APTT 39.6 H (24.3-30.1) sec Puncture Site Patient Temperature O2 Saturation (90-100) % ABG pH (7.380-7.420) ABG pCO2 (38-42) mmHg ABG pO2 (61-120) mmHg ABG HCO3 (22-26) mmol/L ABG O2 Content (12.0-20.0) Vol % ABG Base Excess (-2-2) mmol/L ABG Methemoglobin (0-2) % Gus Test Hemoglobin (12.0-16.0) G/DL Carboxyhemoglobin (0-4) % O2 Delivery Device Inspired O2 % Critical Value Sodium 147 H (136-145) meq/L Potassium 5.8 H (3.5-5.1) meq/L Chloride 121 H (98-107) meq/L Carbon Dioxide 9.5 L (21.0-32.0) meq/L Anion Gap 17 H (5-15) meq/L BUN 167 H (7-18) mg/dL Creatinine 10.00 H (0.60-1.30) mg/dL Estimated GFR 5 L (>89) mL/min Random Glucose 107 H (74-106) mg/dL Calcium 7.9 L (8.5-10.1) mg/dL Phosphorus (2.5-4.9) mg/dL Magnesium (1.5-2.5) mg/dL Total Bilirubin 0.2 (0.2-1.0) mg/dL AST 8 L (15-37) U/L ALT 10 L (12-78) U/L Alkaline Phosphatase 67 (45-117) U/L Total Creatine Kinase 98 (39-308) U/L Troponin I 0.12 H (0.02-0.05) ng/mL Total Protein 7.4 (6.4-8.2) g/dL Albumin 2.8 L (3.4-5.0) g/dL Lipase 705 H (73-393) U/L PTH Intact (12.4-76.8) pg/mL Ur Collection Type Urine Color (Yellw/Straw) Urine Clarity (Clear) Urine pH (5.0-8.5) Ur Specific Mclean (1.002-1.035) Urine Protein (Neg-Trace) mg/dL Urine Glucose (UA) (Negative) mg/dL Urine Ketones (Negative) mg/dL Urine Occult Blood (Negative) Urine Nitrate (Negative) Urine Bilirubin (Negative) Urine Urobilinogen (Less than 2) mg/dL Ur Leukocyte Esterase (Negative) Urine RBC (0-3) /hpf Urine WBC (0-5) /hpf Urine WBC Clumps (None) Ur Renal Epithelial Cell (None) /hpf Urine Bacteria (None) /hpf Micro UA Comment Ur Microscopic Review Urine Culture Comments 04/24/18 04/24/18 04/24/18 Range/Units 18:00 18:33 19:05 CBC w Diff WBC (4.0-11.0) th/mm3 RBC (4.50-5.90) mil/mm3 Hgb (13.0-17.0) gm/dL Hct (39.0-51.0) % MCV (80.0-100.0) fL MCH (27.0-34.0) pg MCHC (32.0-36.0) % RDW (11.6-17.2) % Plt Count (150-450) th/mm3 MPV (7.0-11.0) fL Neut % (Auto) (16.0-70.0) % Lymph % (Auto) (9.0-44.0) % Weston % (Auto) (0.0-8.0) % Eos % (Auto) (0.0-4.0) % Baso % (Auto) (0.0-2.0) % Neut # (Auto) (1.8-7.7) th/mm3 Lymph # (Auto) (1.0-4.8) th/mm3 Weston # (Auto) (0.0-0.9) th/mm3 Eos # (Auto) (0.0-0.4) th/mm3 Baso # (Auto) (0.0-0.2) th/mm3 WBC Differential Differential Comment PT (9.8-11.6) sec INR Ratio APTT (24.3-30.1) sec Puncture Site Left radial Patient Temperature 98.6 O2 Saturation 96 (90-100) % ABG pH 7.23 L* (7.380-7.420) ABG pCO2 21 L* (38-42) mmHg ABG pO2 122 H (61-120) mmHg ABG HCO3 8 L* (22-26) mmol/L ABG O2 Content 19.1 (12.0-20.0) Vol % ABG Base Excess -18.1 L (-2-2) mmol/L ABG Methemoglobin 1.4 (0-2) % Gus Test Present Hemoglobin 14.0 (12.0-16.0) G/DL Carboxyhemoglobin 0.7 (0-4) % O2 Delivery Device Room air Inspired O2 21 % Critical Value Yes Sodium (136-145) meq/L Potassium (3.5-5.1) meq/L Chloride (98-107) meq/L Carbon Dioxide (21.0-32.0) meq/L Anion Gap (5-15) meq/L BUN (7-18) mg/dL Creatinine (0.60-1.30) mg/dL Estimated GFR (>89) mL/min Random Glucose (74-106) mg/dL Calcium (8.5-10.1) mg/dL Phosphorus (2.5-4.9) mg/dL Magnesium 3.2 H (1.5-2.5) mg/dL Total Bilirubin (0.2-1.0) mg/dL AST (15-37) U/L ALT (12-78) U/L Alkaline Phosphatase (45-117) U/L Total Creatine Kinase (39-308) U/L Troponin I (0.02-0.05) ng/mL Total Protein (6.4-8.2) g/dL Albumin (3.4-5.0) g/dL Lipase (73-393) U/L PTH Intact (12.4-76.8) pg/mL Ur Collection Type Urine Color Yellow (Yellw/Straw) Urine Clarity Turbid H (Clear) Urine pH 7.5 (5.0-8.5) Ur Specific Mclean 1.020 (1.002-1.035) Urine Protein 300 or greater H (Neg-Trace) mg/dL Urine Glucose (UA) Negative (Negative) mg/dL Urine Ketones Negative (Negative) mg/dL Urine Occult Blood (Negative) Urine Nitrate Positive H (Negative) Urine Bilirubin Negative (Negative) Urine Urobilinogen 0.2 (Less than 2) mg/dL Ur Leukocyte Esterase Large H (Negative) Urine RBC 15-50 H (0-3) /hpf Urine WBC Innumerable H (0-5) /hpf Urine WBC Clumps Many H (None) Ur Renal Epithelial Cell (None) /hpf Urine Bacteria Many H (None) /hpf Micro UA Comment Cath-culture ind Ur Microscopic Review Microscopic reviewed Urine Culture Comments Cath-cult indicated 04/25/18 04/25/18 04/25/18 Range/Units 05:22 05:22 05:22 CBC w Diff Auto diff final WBC 9.0 (4.0-11.0) th/mm3 RBC 4.46 L (4.50-5.90) mil/mm3 Hgb 12.8 L (13.0-17.0) gm/dL Hct 38.3 L (39.0-51.0) % MCV 86.1 (80.0-100.0) fL MCH 28.8 (27.0-34.0) pg MCHC 33.4 (32.0-36.0) % RDW 14.6 (11.6-17.2) % Plt Count 334 (150-450) th/mm3 MPV 7.9 (7.0-11.0) fL Neut % (Auto) 88.1 H (16.0-70.0) % Lymph % (Auto) 5.9 L (9.0-44.0) % Weston % (Auto) 5.6 (0.0-8.0) % Eos % (Auto) 0.1 (0.0-4.0) % Baso % (Auto) 0.3 (0.0-2.0) % Neut # (Auto) 8.0 H (1.8-7.7) th/mm3 Lymph # (Auto) 0.5 L (1.0-4.8) th/mm3 Weston # (Auto) 0.5 (0.0-0.9) th/mm3 Eos # (Auto) 0.0 (0.0-0.4) th/mm3 Baso # (Auto) 0.0 (0.0-0.2) th/mm3 WBC Differential . Differential Comment . PT (9.8-11.6) sec INR Ratio APTT (24.3-30.1) sec Puncture Site Patient Temperature O2 Saturation (90-100) % ABG pH (7.380-7.420) ABG pCO2 (38-42) mmHg ABG pO2 (61-120) mmHg ABG HCO3 (22-26) mmol/L ABG O2 Content (12.0-20.0) Vol % ABG Base Excess (-2-2) mmol/L ABG Methemoglobin (0-2) % Gus Test Hemoglobin (12.0-16.0) G/DL Carboxyhemoglobin (0-4) % O2 Delivery Device Inspired O2 % Critical Value Sodium 150 H (136-145) meq/L Potassium 5.6 H (3.5-5.1) meq/L Chloride 121 H (98-107) meq/L Carbon Dioxide 12.8 L (21.0-32.0) meq/L Anion Gap 16 H (5-15) meq/L BUN 169 H (7-18) mg/dL Creatinine 10.00 H (0.60-1.30) mg/dL Estimated GFR 5 L (>89) mL/min Random Glucose 87 (74-106) mg/dL Calcium 8.5 (8.5-10.1) mg/dL Phosphorus 8.0 H (2.5-4.9) mg/dL Magnesium 3.1 H (1.5-2.5) mg/dL Total Bilirubin (0.2-1.0) mg/dL AST (15-37) U/L ALT (12-78) U/L Alkaline Phosphatase (45-117) U/L Total Creatine Kinase (39-308) U/L Troponin I (0.02-0.05) ng/mL Total Protein (6.4-8.2) g/dL Albumin (3.4-5.0) g/dL Lipase 859 H (73-393) U/L PTH Intact (12.4-76.8) pg/mL Ur Collection Type Urine Color (Yellw/Straw) Urine Clarity (Clear) Urine pH (5.0-8.5) Ur Specific Mclean (1.002-1.035) Urine Protein (Neg-Trace) mg/dL Urine Glucose (UA) (Negative) mg/dL Urine Ketones (Negative) mg/dL Urine Occult Blood (Negative) Urine Nitrate (Negative) Urine Bilirubin (Negative) Urine Urobilinogen (Less than 2) mg/dL Ur Leukocyte Esterase (Negative) Urine RBC (0-3) /hpf Urine WBC (0-5) /hpf Urine WBC Clumps (None) Ur Renal Epithelial Cell (None) /hpf Urine Bacteria (None) /hpf Micro UA Comment Ur Microscopic Review Urine Culture Comments 04/25/18 04/26/18 04/27/18 Range/Units 15:45 05:15 06:20 CBC w Diff Auto diff final WBC 9.7 (4.0-11.0) th/mm3 RBC 4.15 L (4.50-5.90) mil/mm3 Hgb 11.8 L (13.0-17.0) gm/dL Hct 35.1 L (39.0-51.0) % MCV 84.5 (80.0-100.0) fL MCH 28.5 (27.0-34.0) pg MCHC 33.7 (32.0-36.0) % RDW 14.9 (11.6-17.2) % Plt Count 240 (150-450) th/mm3 MPV 8.6 (7.0-11.0) fL Neut % (Auto) 84.3 H (16.0-70.0) % Lymph % (Auto) 7.9 L (9.0-44.0) % Weston % (Auto) 5.6 (0.0-8.0) % Eos % (Auto) 1.0 (0.0-4.0) % Baso % (Auto) 1.2 (0.0-2.0) % Neut # (Auto) 8.2 H (1.8-7.7) th/mm3 Lymph # (Auto) 0.8 L (1.0-4.8) th/mm3 Weston # (Auto) 0.5 (0.0-0.9) th/mm3 Eos # (Auto) 0.1 (0.0-0.4) th/mm3 Baso # (Auto) 0.1 (0.0-0.2) th/mm3 WBC Differential . Differential Comment . PT (9.8-11.6) sec INR Ratio APTT (24.3-30.1) sec Puncture Site Patient Temperature O2 Saturation (90-100) % ABG pH (7.380-7.420) ABG pCO2 (38-42) mmHg ABG pO2 (61-120) mmHg ABG HCO3 (22-26) mmol/L ABG O2 Content (12.0-20.0) Vol % ABG Base Excess (-2-2) mmol/L ABG Methemoglobin (0-2) % Gus Test Hemoglobin (12.0-16.0) G/DL Carboxyhemoglobin (0-4) % O2 Delivery Device Inspired O2 % Critical Value Sodium 157 H* (136-145) meq/L Potassium 4.7 D (3.5-5.1) meq/L Chloride 121 H (98-107) meq/L Carbon Dioxide 22.2 D (21.0-32.0) meq/L Anion Gap 14 (5-15) meq/L BUN 140 H (7-18) mg/dL Creatinine 7.60 H (0.60-1.30) mg/dL Estimated GFR 7 L (>89) mL/min Random Glucose 73 L (74-106) mg/dL Calcium 8.1 L (8.5-10.1) mg/dL Phosphorus 5.7 H D (2.5-4.9) mg/dL Magnesium (1.5-2.5) mg/dL Total Bilirubin (0.2-1.0) mg/dL AST (15-37) U/L ALT (12-78) U/L Alkaline Phosphatase (45-117) U/L Total Creatine Kinase (39-308) U/L Troponin I (0.02-0.05) ng/mL Total Protein (6.4-8.2) g/dL Albumin 2.7 L (3.4-5.0) g/dL Lipase 926 H (73-393) U/L PTH Intact 220.7 H (12.4-76.8) pg/mL Ur Collection Type Urine Color (Yellw/Straw) Urine Clarity (Clear) Urine pH (5.0-8.5) Ur Specific Mclean (1.002-1.035) Urine Protein (Neg-Trace) mg/dL Urine Glucose (UA) (Negative) mg/dL Urine Ketones (Negative) mg/dL Urine Occult Blood (Negative) Urine Nitrate (Negative) Urine Bilirubin (Negative) Urine Urobilinogen (Less than 2) mg/dL Ur Leukocyte Esterase (Negative) Urine RBC (0-3) /hpf Urine WBC (0-5) /hpf Urine WBC Clumps (None) Ur Renal Epithelial Cell (None) /hpf Urine Bacteria (None) /hpf Micro UA Comment Ur Microscopic Review Urine Culture Comments 04/27/18 04/28/18 04/29/18 Range/Units 06:20 06:55 05:30 CBC w Diff Auto diff final WBC 12.4 H (4.0-11.0) th/mm3 RBC 4.11 L (4.50-5.90) mil/mm3 Hgb 12.0 L (13.0-17.0) gm/dL Hct 35.7 L (39.0-51.0) % MCV 86.9 (80.0-100.0) fL MCH 29.1 (27.0-34.0) pg MCHC 33.5 (32.0-36.0) % RDW 14.3 (11.6-17.2) % Plt Count 191 (150-450) th/mm3 MPV 8.4 (7.0-11.0) fL Neut % (Auto) 88.9 H (16.0-70.0) % Lymph % (Auto) 4.7 L (9.0-44.0) % Weston % (Auto) 3.4 (0.0-8.0) % Eos % (Auto) 0.9 (0.0-4.0) % Baso % (Auto) 2.1 H (0.0-2.0) % Neut # (Auto) 11.0 H (1.8-7.7) th/mm3 Lymph # (Auto) 0.6 L (1.0-4.8) th/mm3 Weston # (Auto) 0.4 (0.0-0.9) th/mm3 Eos # (Auto) 0.1 (0.0-0.4) th/mm3 Baso # (Auto) 0.3 H (0.0-0.2) th/mm3 WBC Differential . Differential Comment . PT (9.8-11.6) sec INR Ratio APTT (24.3-30.1) sec Puncture Site Patient Temperature O2 Saturation (90-100) % ABG pH (7.380-7.420) ABG pCO2 (38-42) mmHg ABG pO2 (61-120) mmHg ABG HCO3 (22-26) mmol/L ABG O2 Content (12.0-20.0) Vol % ABG Base Excess (-2-2) mmol/L ABG Methemoglobin (0-2) % Gus Test Hemoglobin (12.0-16.0) G/DL Carboxyhemoglobin (0-4) % O2 Delivery Device Inspired O2 % Critical Value Sodium 149 H 146 H (136-145) meq/L Potassium 4.6 3.5 D (3.5-5.1) meq/L Chloride 115 H 109 H (98-107) meq/L Carbon Dioxide 25.5 25.3 (21.0-32.0) meq/L Anion Gap 9 12 (5-15) meq/L BUN 107 H 78 H (7-18) mg/dL Creatinine 5.20 H 4.10 H (0.60-1.30) mg/dL Estimated GFR 11 L 14 L (>89) mL/min Random Glucose 110 H 116 H (74-106) mg/dL Calcium 8.1 L 8.2 L (8.5-10.1) mg/dL Phosphorus 3.0 (2.5-4.9) mg/dL Magnesium 2.1 (1.5-2.5) mg/dL Total Bilirubin (0.2-1.0) mg/dL AST (15-37) U/L ALT (12-78) U/L Alkaline Phosphatase (45-117) U/L Total Creatine Kinase (39-308) U/L Troponin I (0.02-0.05) ng/mL Total Protein (6.4-8.2) g/dL Albumin (3.4-5.0) g/dL Lipase 225 (73-393) U/L PTH Intact (12.4-76.8) pg/mL Ur Collection Type Urine Color (Yellw/Straw) Urine Clarity (Clear) Urine pH (5.0-8.5) Ur Specific Mclean (1.002-1.035) Urine Protein (Neg-Trace) mg/dL Urine Glucose (UA) (Negative) mg/dL Urine Ketones (Negative) mg/dL Urine Occult Blood (Negative) Urine Nitrate (Negative) Urine Bilirubin (Negative) Urine Urobilinogen (Less than 2) mg/dL Ur Leukocyte Esterase (Negative) Urine RBC (0-3) /hpf Urine WBC (0-5) /hpf Urine WBC Clumps (None) Ur Renal Epithelial Cell (None) /hpf Urine Bacteria (None) /hpf Micro UA Comment Ur Microscopic Review Urine Culture Comments 04/29/18 04/30/18 04/30/18 Range/Units 05:30 05:47 05:47 CBC w Diff Auto diff final WBC 9.8 (4.0-11.0) th/mm3 RBC 3.99 L (4.50-5.90) mil/mm3 Hgb 11.4 L (13.0-17.0) gm/dL Hct 34.6 L (39.0-51.0) % MCV 86.8 (80.0-100.0) fL MCH 28.5 (27.0-34.0) pg MCHC 32.8 (32.0-36.0) % RDW 13.9 (11.6-17.2) % Plt Count 212 (150-450) th/mm3 MPV 8.5 (7.0-11.0) fL Neut % (Auto) 85.9 H (16.0-70.0) % Lymph % (Auto) 7.0 L (9.0-44.0) % Weston % (Auto) 4.3 (0.0-8.0) % Eos % (Auto) 2.6 (0.0-4.0) % Baso % (Auto) 0.2 (0.0-2.0) % Neut # (Auto) 8.4 H (1.8-7.7) th/mm3 Lymph # (Auto) 0.7 L (1.0-4.8) th/mm3 Weston # (Auto) 0.4 (0.0-0.9) th/mm3 Eos # (Auto) 0.3 (0.0-0.4) th/mm3 Baso # (Auto) 0.0 (0.0-0.2) th/mm3 WBC Differential . Differential Comment . PT (9.8-11.6) sec INR Ratio APTT (24.3-30.1) sec Puncture Site Patient Temperature O2 Saturation (90-100) % ABG pH (7.380-7.420) ABG pCO2 (38-42) mmHg ABG pO2 (61-120) mmHg ABG HCO3 (22-26) mmol/L ABG O2 Content (12.0-20.0) Vol % ABG Base Excess (-2-2) mmol/L ABG Methemoglobin (0-2) % Gus Test Hemoglobin (12.0-16.0) G/DL Carboxyhemoglobin (0-4) % O2 Delivery Device Inspired O2 % Critical Value Sodium 141 144 (136-145) meq/L Potassium 3.4 L 3.7 (3.5-5.1) meq/L Chloride 106 109 H (98-107) meq/L Carbon Dioxide 22.2 24.1 (21.0-32.0) meq/L Anion Gap 13 11 (5-15) meq/L BUN 63 H 50 H (7-18) mg/dL Creatinine 3.50 H 2.90 H (0.60-1.30) mg/dL Estimated GFR 17 L 21 L (>89) mL/min Random Glucose 143 H 92 (74-106) mg/dL Calcium 7.9 L 7.9 L (8.5-10.1) mg/dL Phosphorus 2.8 (2.5-4.9) mg/dL Magnesium (1.5-2.5) mg/dL Total Bilirubin (0.2-1.0) mg/dL AST (15-37) U/L ALT (12-78) U/L Alkaline Phosphatase (45-117) U/L Total Creatine Kinase (39-308) U/L Troponin I (0.02-0.05) ng/mL Total Protein (6.4-8.2) g/dL Albumin 2.2 L (3.4-5.0) g/dL Lipase (73-393) U/L PTH Intact (12.4-76.8) pg/mL Ur Collection Type Urine Color (Yellw/Straw) Urine Clarity (Clear) Urine pH (5.0-8.5) Ur Specific Mclean (1.002-1.035) Urine Protein (Neg-Trace) mg/dL Urine Glucose (UA) (Negative) mg/dL Urine Ketones (Negative) mg/dL Urine Occult Blood (Negative) Urine Nitrate (Negative) Urine Bilirubin (Negative) Urine Urobilinogen (Less than 2) mg/dL Ur Leukocyte Esterase (Negative) Urine RBC (0-3) /hpf Urine WBC (0-5) /hpf Urine WBC Clumps (None) Ur Renal Epithelial Cell (None) /hpf Urine Bacteria (None) /hpf Micro UA Comment Ur Microscopic Review Urine Culture Comments 04/30/18 Range/Units 07:15 CBC w Diff WBC (4.0-11.0) th/mm3 RBC (4.50-5.90) mil/mm3 Hgb (13.0-17.0) gm/dL Hct (39.0-51.0) % MCV (80.0-100.0) fL MCH (27.0-34.0) pg MCHC (32.0-36.0) % RDW (11.6-17.2) % Plt Count (150-450) th/mm3 MPV (7.0-11.0) fL Neut % (Auto) (16.0-70.0) % Lymph % (Auto) (9.0-44.0) % Weston % (Auto) (0.0-8.0) % Eos % (Auto) (0.0-4.0) % Baso % (Auto) (0.0-2.0) % Neut # (Auto) (1.8-7.7) th/mm3 Lymph # (Auto) (1.0-4.8) th/mm3 Weston # (Auto) (0.0-0.9) th/mm3 Eos # (Auto) (0.0-0.4) th/mm3 Baso # (Auto) (0.0-0.2) th/mm3 WBC Differential Differential Comment PT (9.8-11.6) sec INR Ratio APTT (24.3-30.1) sec Puncture Site Patient Temperature O2 Saturation (90-100) % ABG pH (7.380-7.420) ABG pCO2 (38-42) mmHg ABG pO2 (61-120) mmHg ABG HCO3 (22-26) mmol/L ABG O2 Content (12.0-20.0) Vol % ABG Base Excess (-2-2) mmol/L ABG Methemoglobin (0-2) % Gus Test Hemoglobin (12.0-16.0) G/DL Carboxyhemoglobin (0-4) % O2 Delivery Device Inspired O2 % Critical Value Sodium (136-145) meq/L Potassium (3.5-5.1) meq/L Chloride (98-107) meq/L Carbon Dioxide (21.0-32.0) meq/L Anion Gap (5-15) meq/L BUN (7-18) mg/dL Creatinine (0.60-1.30) mg/dL Estimated GFR (>89) mL/min Random Glucose (74-106) mg/dL Calcium (8.5-10.1) mg/dL Phosphorus (2.5-4.9) mg/dL Magnesium (1.5-2.5) mg/dL Total Bilirubin (0.2-1.0) mg/dL AST (15-37) U/L ALT (12-78) U/L Alkaline Phosphatase (45-117) U/L Total Creatine Kinase (39-308) U/L Troponin I (0.02-0.05) ng/mL Total Protein (6.4-8.2) g/dL Albumin (3.4-5.0) g/dL Lipase (73-393) U/L PTH Intact (12.4-76.8) pg/mL Ur Collection Type Cath Urine Color Yellow (Yellw/Straw) Urine Clarity Cloudy H (Clear) Urine pH 6.0 (5.0-8.5) Ur Specific Mclean 1.010 (1.002-1.035) Urine Protein 30 H (Neg-Trace) mg/dL Urine Glucose (UA) Negative (Negative) mg/dL Urine Ketones Negative (Negative) mg/dL Urine Occult Blood Large H (Negative) Urine Nitrate Negative (Negative) Urine Bilirubin Negative (Negative) Urine Urobilinogen 0.2 (Less than 2) mg/dL Ur Leukocyte Esterase Large H (Negative) Urine RBC 15-50 H (0-3) /hpf Urine WBC 51-189 H (0-5) /hpf Urine WBC Clumps Few H (None) Ur Renal Epithelial Cell 6-10 H (None) /hpf Urine Bacteria Moderate H (None) /hpf Micro UA Comment Cath-culture ind Ur Microscopic Review Microscopic reviewed Urine Culture Comments Cath-cult indicated Imaging Data Radiologist's impression: Chest X-Ray 04/24/18 17:46 CONCLUSION: No acute cardiopulmonary abnormality is identified. Overall, stable exam. Abdomen Ultrasound 04/25/18 00:00 CONCLUSION: 1. Bilateral renal hydronephrosis, worse on the left side of unknown etiology. 2. Positive gallbladder sludge with mildly dilated common bile duct. Discharge Plan Discharge Disposition Patient Disposition: 30 Still Patient Discharge Condition Condition: Stable Discharge Order Discharge Orders: Discharge Order (Routine); Ordered 05/02/18 Ordered By: Gabriel Nails Discharge Details Anticipated Discharge Date: 05/02/18 Discharge Comment: d/c home with hospice once hospital bed, bedside tray, etc arranged by [facility]. Will have bedside care 19/02 Physicians Team ED Provider: Parker Gilliam Primary Care Provider: Primary Care Dalila,No Attending Provider: Buck Barton Other Providers: Nicole Beckman ; Pieter Clemons Status ED Status: Left Department Discharge Information Discharge Date/Time: 04/24/18 19:02
[2018-04-24] MEDS ORDERED: Sod Chloride 0.9% Inj 1,000 ML IV.SIG ONE (18:56)
[2018-04-24 19:10] LABS: ABG Base Excess -18.1 mmol/L (-2-2); ABG PCO2 21 mmHg (38-42); ABG PO2 122 mmHg (61-120)
[2018-04-24 19:24] LABS: Bilirubin,Urine Negative (Negative); Color,Urine Yellow (Yellw/Straw); Glucose,Urine (UA) Negative (Negative); Nitrite,Urine Positive (Negative); PH,Urine 7.5 (5.0-8.5); Urobilinogen,Urine 0.2 mg/dL (Less than 2)
[2018-04-24 19:25] LABS: Clarity,Urine Turbid (Clear)
[2018-04-24 19:26] LABS: Leukocyte Esterase,Urine Large (Negative)
[2018-04-24 19:27] LABS: Bacteria,Urine Many /hpf; WBC,Urine Innumerable /hpf (0-5)
--- NOTE | 2018-04-24 21:10 | P.HP ---
History of Present Illness Service: [facility] hospitalist service Primary Care Physician: Dr. Buck Barton Chief Complaint: Confusion and weakness History of Present Illness: 87-year-old white male with stage IV chronic kidney disease who is been homebound and followed by home DOCS for his chronic disease management for the last several months. He has been a patient of mine for a while but in the last year he has become weaker and it has been difficult for him to leave his home so he has been seen by the home doc program. He has a caregiver that actually goes to his home every Sunday who found him today at home confused and lying in bed with his bedroom in disarray. She last saw him a week ago and he was in his usual state of health and was alert and oriented at that time. She states she talked with him on the phone on 04/19/2018 and he seemed alert and was not complaining of anything at that time. He has decline in mentation and physical condition has ends transpired over the last few days. The last blood test results that I have been his electronic health record were from 02/05/2018 and at that time his BUN was 62 and creatinine was 3.06 with a CO2 of 17. His GFR is generally been in the low 20s and occasionally around 18 for the last couple years. He has been on metoprolol in the past for hypertension but he has not been taking it for a while according to his can tester. He has a history of aan advanced directive and a "do not resuscitate" form and also has expressed in the past that he did not want dialysis should his kidney function get worse. In the ER he was noted to be confused and delirious and his BUN was in the 160s with a creatinine of 10.0, a CO2 of 5, and a potassium of 5.8. His urinalysis shows innumerable WBCs and bacteria. I have talked with the cutting inspector Dr. Beckman and he will be given half normal saline with 2 A of sodium bicarb at 100 cc an hour. He is going to be given Rocephin 1 g every 24 hours for possible UTI and a culture is been ordered in the ED. If his kidney function does not respond then he will likely be placed on hospice therapy. Medical history: Stage IV chronic kidney disease for quite some time History of hypertension in the past History of colon cancer with prior left hemicolectomy in 2013 History of colon polyps Glaucoma Atherosclerosis of the aorta Tortuous aorta History of anemia of chronic kidney disease in the past Nonfunctioning right kidney secondary to prior pyelonephritis in 1983 Lumbar degenerative disc disease History of gout No history of heart attack, CHF, angina, liver disease, diabetes mellitus, thyroid disease, stroke, seizure disorder. He has had pneumonia in the past. He had a bleeding ulcer in 2001. Surgical history: On 07/05/2013 he had a temporary diverting colostomy for an obstructing colon cancer. Then on 09/02/2013 he underwent a colonoscopy that showed an adenomatous polyp of the cecum and a colon cancer of the rectosigmoid region. Then on 2013 he had a left nisha-colectomy and closure of his colostomy. 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 This includes certification that hospital inpatient services are reasonable and necessary and in the case of services not specified as inpatient-only under 42 CFR 419.22(n), that they are appropriately provided as inpatient services in accordance to with the 2-midnight benchmark under 43 CFR 412.3(e) Estimated Total Length of Stay (Days): 5 Plans for Post Hospital Care: Not yet determined Review of Systems Review of systems: No reliable review of systems is obtained from the patient since he is confused. The most reliable history was obtained from his caregiver and mentioned in the history of present illness. She does relate that he does not eat a lot and he was using Ensure up until about 2 months ago and quit using it because of the cost of it. He was alert until a few days ago according to the patient caregiver. She is not noted him to have any blood in his urine or in his bowels when she has been wetting. She reports that he generally is continent of urine during the day but wears some briefs at night. PMF - History History Provided By: Die Casting Machine Maintainer / EMT - Medical History Medical History: Medical History (Last Updated 04/24/18 @ 17:44 by Jeromy Multani RN) Patient unable to obtain medication - Tobacco History Smoking Status: Former smoker - Alcohol History How Often Do You Have a Drink Containing Alcohol: Never - Substance Use History Substance History: No History of Abuse - Travel History Recent Travel in the [place] Within the Last 8 Weeks: No Recent Travel Out of the Country Within the Last 8 Weeks: No - Immunization History Tetanus Immunization: Unsure Hx Influenza Vaccine This Season: No Medications and Allergies Active Medications: Active Medications Dorzolamide HCl (Trusopt 2% Opth Drops) 1 drop EACH EYE HS CARMENZA Ceftriaxone Sodium 1,000 mg/ (Sodium Chloride) 100 mls @ 200 mls/hr IV.SIG Q24H CARMENZA Last Admin: 04/24/18 20:30 Dose: 200 mls/hr Sodium Bicarbonate 100 meq/ (Sodium Chloride) 1,000 mls @ 100 mls/hr IV.CONT .Q10H CARMENZA Latanoprost (Xalatan 0.005% Opth Drops) 1 drop EACH EYE HS CARMENZA Allergies Allergy/AdvReac Type Severity Reaction Status Date / Time acetaminophen Allergy Severe rash Verified 08/19/17 12:56 aspirin Allergy Severe rash Verified 08/19/17 12:56 ibuprofen Allergy Severe hives Verified 08/19/17 12:56 lorazepam Allergy Severe rash Verified 08/19/17 12:56 Home Medications Medication Instructions Recorded Confirmed Type Unable to Obtain Home Meds 04/24/18 04/24/18 History Exam Vital signs: Vital Signs 04/24/18 17:44 04/24/18 18:07 Pulse Rate 83 79 Respiratory Rate 16 16 Blood Pressure 188/80 H 141/92 H Pulse Oximetry 98 96 Intake & Output 04/24/18 04/24/18 04/25/18 06:59 18:59 06:59 Weight 54.683 kg Narrative: Elderly thin male who is confused. HEENT: Pupils equal, EOMs intact, sclera nonicteric, mouth without lesions, TMs intact, nose without lesions Neck: No JVD, neck is supple, no carotid bruit Heart: Regular rate and rhythm without murmurs or gallops Lungs: Clear to auscultation Abdomen: Soft, nontender, no masses, no organomegaly Extremities: No edema, pulses palpated in feet, no calf tenderness Skin: Without lesions or rash Neuro: Confused normal motor exam, sensation intact, cranial nerves intact Results - Labs CBC & Chem 7: 04/24/18 18:00 04/24/18 18:00 Labs: Laboratory Results - last 24 hr 04/24/18 04/24/18 04/24/18 18:00 18:00 18:00 CBC w Diff Auto diff final WBC 9.4 RBC 4.89 Hgb 13.7 Hct 42.1 MCV 86.1 MCH 28.0 MCHC 32.5 RDW 14.9 Plt Count 357 MPV 8.2 Neut % (Auto) 93.6 H Lymph % (Auto) 3.1 L [place] % (Auto) 1.6 Eos % (Auto) 0.7 Baso % (Auto) 1.0 Neut # (Auto) 8.7 H Lymph # (Auto) 0.3 L [place] # (Auto) 0.2 Eos # (Auto) 0.1 Baso # (Auto) 0.1 WBC Differential . Differential Comment . PT 12.4 H INR 1.2 APTT 39.6 H Puncture Site Patient Temperature O2 Saturation ABG pH ABG pCO2 ABG pO2 ABG HCO3 ABG O2 Content ABG Base Excess ABG Methemoglobin Gus Test Hemoglobin Carboxyhemoglobin O2 Delivery Device Inspired O2 Critical Value Sodium 147 H Potassium 5.8 H Chloride 121 H Carbon Dioxide 9.5 L Anion Gap 17 H BUN 167 H Creatinine 10.00 H Estimated GFR 5 L Random Glucose 107 H Calcium 7.9 L Magnesium Total Bilirubin 0.2 AST 8 L ALT 10 L Alkaline Phosphatase 67 Total Creatine Kinase 98 Troponin I 0.12 H Total Protein 7.4 Albumin 2.8 L Lipase 705 H Urine Color Urine Clarity Urine pH Ur Specific [place] Urine Protein Urine Glucose (UA) Urine Ketones Urine Occult Blood Urine Nitrate Urine Bilirubin Urine Urobilinogen Ur Leukocyte Esterase Urine RBC Urine WBC Urine WBC Clumps Urine Bacteria Micro UA Comment Ur Microscopic Review Urine Culture Comments 04/24/18 04/24/18 04/24/18 18:00 18:33 19:05 CBC w Diff WBC RBC Hgb Hct MCV MCH MCHC RDW Plt Count MPV Neut % (Auto) Lymph % (Auto) [place] % (Auto) Eos % (Auto) Baso % (Auto) Neut # (Auto) Lymph # (Auto) [place] # (Auto) Eos # (Auto) Baso # (Auto) WBC Differential Differential Comment PT INR APTT Puncture Site Left radial Patient Temperature 98.6 O2 Saturation 96 ABG pH 7.23 L* ABG pCO2 21 L* ABG pO2 122 H ABG HCO3 8 L* ABG O2 Content 19.1 ABG Base Excess -18.1 L ABG Methemoglobin 1.4 Gus Test Present Hemoglobin 14.0 Carboxyhemoglobin 0.7 O2 Delivery Device Room air Inspired O2 21 Critical Value Yes Sodium Potassium Chloride Carbon Dioxide Anion Gap BUN Creatinine Estimated GFR Random Glucose Calcium Magnesium 3.2 H Total Bilirubin AST ALT Alkaline Phosphatase Total Creatine Kinase Troponin I Total Protein Albumin Lipase Urine Color Yellow Urine Clarity Turbid H Urine pH 7.5 Ur Specific [place] 1.020 Urine Protein 300 or greater H Urine Glucose (UA) Negative Urine Ketones Negative Urine Occult Blood Urine Nitrate Positive H Urine Bilirubin Negative Urine Urobilinogen 0.2 Ur Leukocyte Esterase Large H Urine RBC 15-50 H Urine WBC Innumerable H Urine WBC Clumps Many H Urine Bacteria Many H Micro UA Comment Cath-culture ind Ur Microscopic Review Microscopic reviewed Urine Culture Comments Cath-cult indicated - Imaging Impressions Chest X-Ray 04/24/18 17:46 CONCLUSION: No acute cardiopulmonary abnormality is identified. Overall, stable exam. - ABG ABG results: 04/24/18 19:05 ABG pH 7.23 L* ABG pCO2 21 L* ABG pO2 122 H ABG HCO3 8 L* ABG O2 Content 19.1 ABG Base Excess -18.1 L ABG Methemoglobin 1.4 Attestation: I personally reviewed and interpreted this ABG as follows: Caprini VTE Risk Assessment Caprini VTE Risk Assessment: Moderate/High Risk (score >= 2) Caprini Risk Assessment Model: Point Value = 1 Point Value = 2 Point Value = 3 Point Value = 5 Age 41-60 Minor surgery BMI > 25 kg/m2 Swollen legs Varicose veins or History of unexplained or recurrent spontaneous Oral contraceptives or hormone replacement Sepsis (< 1 month) Serious lung disease, including pneumonia (< 1 month) Abnormal pulmonary function Acute myocardial infarction Congestive heart failure (< 1 month) History of inflammatory bowel disease Medical patient at bed rest Age 61-74 Arthroscopic surgery Major open surgery (> 45 min) Laparoscopic surgery (> 45 min) Malignancy Confined to bed (> 72 hours) Immobilizing plaster cast Central venous access Age >= 75 History of VTE Family history of VTE Factor V Leiden Prothrombin [id number] Lupus anticoagulant Anticardiolipin antibodies Elevated serum homocysteine Heparin-induced thrombocytopenia Other congenital or acquired thrombophilia Stroke (< 1 month) Elective arthroplasty Hip, pelvis, or leg fracture Acute spinal cord injury (< 1 month) Prophylaxis Regimen: Total Risk Factor Score Risk Level Prophylaxis Regimen 0-1 Low Early ambulation 2 Moderate Order ONE of the following: *Sequential Compression Device (SCD) *Heparin 5000 units SQ BID 3-4 Higher Order ONE of the following medications: *Heparin 5000 units SQ TID *Enoxaparin/Lovenox 40 mg SQ daily (WT < 150 kg, CrCl > 30 mL/min) *Enoxaparin/Lovenox 30 mg SQ daily (WT < 150 kg, CrCl > 10-29 mL/min) *Enoxaparin/Lovenox 30 mg SQ BID (WT < 150 kg, CrCl > 30 mL/min) AND/OR *Sequential Compression Device (SCD) 5 or more Highest Order ONE of the following medications: *Heparin 5000 units SQ TID (Preferred with Epidurals) *Enoxaparin/Lovenox 40 mg SQ daily (WT < 150 kg, CrCl > 30 mL/min) *Enoxaparin/Lovenox 30 mg SQ daily (WT < 150 kg, CrCl > 10-29 mL/min) *Enoxaparin/Lovenox 30 mg SQ BID (WT < 150 kg, CrCl > 30 mL/min) AND *Sequential Compression Device (SCD) Assessment and Plan - Assessment (1) Acute renal failure superimposed on stage 4 chronic kidney disease Code(s): N17.9 - Acute kidney failure, unspecified; N18.4 - Chronic kidney disease, stage 4 (severe) Status: Acute (2) Metabolic acidosis Code(s): E87.2 - Acidosis Status: Acute (3) Metabolic encephalopathy Code(s): G93.41 - Metabolic encephalopathy Status: Acute (4) Hyperkalemia Code(s): E87.5 - Hyperkalemia Status: Acute (5) Urinary tract infection Code(s): N39.0 - Urinary tract infection, site not specified Status: Acute (6) History of colon cancer Code(s): Z85.038 - Personal history of other malignant neoplasm of large intestine Status: Resolved (7) Hx of colonic polyps Code(s): Z86.010 - Personal history of colonic polyps Status: Resolved (8) Glaucoma Code(s): H40.9 - Unspecified glaucoma Status: Chronic (9) Atherosclerosis of aorta Code(s): I70.0 - Atherosclerosis of aorta Status: Chronic (10) Lumbar degenerative disc disease Code(s): M51.36 - Other intervertebral disc degeneration, lumbar region Status : Chronic - Plan Plan: I discussed the case with the cutting inspector (Dr. Beckman) and he is recommended that the patient be given 1/2 normal saline with 2 amps of sodium bicarb with a rate of 100 mL's per hour. Repeat BMP will be ordered in the morning. We will use SCDs and ERI hose for DVT prophylaxis. He will be maintained at bedrest. He will be maintained n.p.o. for now. A urine culture was ordered in the ER and he will be started on Rocephin 1 g IV every 24 hours. Patient is a no code. If patient does not respond to the IV fluids and his kidney function improves then he will likely be placed on hospice care. He has no family members according to the can tester. Code Status: DNR
[2018-04-24] MEDS: Sodium Bicarbonate 8.4% Inj 100 MEQ in Sodium Chloride 0.45 % Inj 900 ML IV.CONT SCH (21:53)
[2018-04-25] MEDS: Dorzolamide 2% Opth Drops 10 ML Bottle EACH EYE SCH ×2 (00:33→21:02)
[2018-04-25] MEDS: Latanoprost 0.005% Opth Drops 2.5 ML Bottle EACH EYE SCH ×2 (00:33→21:02)
[2018-04-25 05:56] LABS: Baso % (Auto) 0.3 % (0.0-2.0); Eos % (Auto) 0.1 % (0.0-4.0); Hematocrit 38.3 % (39.0-51.0); Hemoglobin 12.8 gm/dL (13.0-17.0); Lymph # (Auto) 0.5 th/mm3 (1.0-4.8); Lymph % (Auto) 5.9 % (9.0-44.0); Mean Corpuscular HGB Conc 33.4 % (32.0-36.0); Mean Corpuscular Hemoglobin 28.8 pg (27.0-34.0); Mean Corpuscular Volume 86.1 fL (80.0-100.0); Mean Platelet Volume 7.9 fL (7.0-11.0); Mono # (Auto) 0.5 th/mm3 (0.0-0.9); Mono % (Auto) 5.6 % (0.0-8.0); Neut % (Auto) 88.1 % (16.0-70.0); Platelet Count 334 th/mm3 (150-450); Red Blood Count 4.46 mil/mm3 (4.50-5.90); Red Cell Distribution Width 14.6 % (11.6-17.2)
[2018-04-25 06:20] LABS: Potassium 5.6 meq/L (3.5-5.1)
[2018-04-25] MEDS: Sodium Bicarbonate 8.4% Inj 100 MEQ in Sodium Chloride 0.45 % Inj 900 ML IV.CONT SCH ×2 (06:20→16:05)
[2018-04-25 06:27] LABS: Calcium 8.5 mg/dL (8.5-10.1); Carbon Dioxide 12.8 meq/L (21.0-32.0)
--- NOTE | 2018-04-25 07:45 | P.PN ---
Subjective Interval history: Patient still confused. No apparent pain. Physical Exam Vital signs: Vital Signs 04/24/18 17:44 04/24/18 18:07 04/24/18 20:40 Temperature Pulse Rate 83 79 87 Respiratory Rate 16 16 18 Blood Pressure 188/80 H 141/92 H 180/71 H Pulse Oximetry 98 96 2 L 04/24/18 20:56 04/24/18 22:00 04/25/18 00:00 Temperature 97.0 F L Pulse Rate 85 84 84 Respiratory Rate 18 18 Blood Pressure 159/78 H 170/79 H Pulse Oximetry 97 96 04/25/18 04:00 Temperature 97.4 F L Pulse Rate 79 Respiratory Rate 18 Blood Pressure 147/83 H Pulse Oximetry 100 Intake & Output 04/24/18 04/25/18 04/25/18 18:59 06:59 18:59 Intake Total 3100 / 3100 Output Total 500 / 500 Balance 2600 / 2600 Weight 54.683 kg 54.6 kg Intake: IV 3100 / 3100 Sodium Bicarbonate 8.4% Inj 100 2000 / 2000 MEQ In 1/2 Normal Saline Inj 900 ML @ 100 mls/hr IV.CONT . Q10H CARMENZA Rx#:[id number] NS Inj 1,000 ML @ Wide Open IV. 1000 / 1000 SIG BOLUS ONE Rx#:[id number] Rocephin Inj 1,000 MG In NS Inj 100 / 100 100 ML @ 200 mls/hr IV.SIG Q24H CARMENZA Rx#:[id number] Output: Urine 500 / 500 Other: Weight On Admission 55 kg Narrative: Exam: Confused thin elderly white male. HEENT: Pupils equal, no scleral icterus, mouth without lesions Neck: No JVD Heart: RRR with no murmurs Lungs: Clear Abdomen: Soft, nondistended, no apparent tenderness Extremities: No edema, pulses palpated but diminished Neuro: Confused, moves all extremities - Urinary Catheter Management Indwelling Urethral Catheter Cath placed during this visit: yes Urethral indwelling: Yes Reason for continuing: Hourly intake/output Insertion date: 04/24/18 Results - Labs CBC & Chem 7: 04/25/18 05:22 04/25/18 05:22 Laboratory Results - last 24 hr 04/24/18 04/24/18 04/24/18 18:00 18:00 18:00 CBC w Diff Auto diff final WBC 9.4 RBC 4.89 Hgb 13.7 Hct 42.1 MCV 86.1 MCH 28.0 MCHC 32.5 RDW 14.9 Plt Count 357 MPV 8.2 Neut % (Auto) 93.6 H Lymph % (Auto) 3.1 L [place] % (Auto) 1.6 Eos % (Auto) 0.7 Baso % (Auto) 1.0 Neut # (Auto) 8.7 H Lymph # (Auto) 0.3 L [place] # (Auto) 0.2 Eos # (Auto) 0.1 Baso # (Auto) 0.1 WBC Differential . Differential Comment . PT 12.4 H INR 1.2 APTT 39.6 H Puncture Site Patient Temperature O2 Saturation ABG pH ABG pCO2 ABG pO2 ABG HCO3 ABG O2 Content ABG Base Excess ABG Methemoglobin Gus Test Hemoglobin Carboxyhemoglobin O2 Delivery Device Inspired O2 Critical Value Sodium 147 H Potassium 5.8 H Chloride 121 H Carbon Dioxide 9.5 L Anion Gap 17 H BUN 167 H Creatinine 10.00 H Estimated GFR 5 L Random Glucose 107 H Calcium 7.9 L Phosphorus Magnesium Total Bilirubin 0.2 AST 8 L ALT 10 L Alkaline Phosphatase 67 Total Creatine Kinase 98 Troponin I 0.12 H Total Protein 7.4 Albumin 2.8 L Lipase 705 H Urine Color Urine Clarity Urine pH Ur Specific [place] Urine Protein Urine Glucose (UA) Urine Ketones Urine Occult Blood Urine Nitrate Urine Bilirubin Urine Urobilinogen Ur Leukocyte Esterase Urine RBC Urine WBC Urine WBC Clumps Urine Bacteria Micro UA Comment Ur Microscopic Review Urine Culture Comments 04/24/18 04/24/18 04/24/18 18:00 18:33 19:05 CBC w Diff WBC RBC Hgb Hct MCV MCH MCHC RDW Plt Count MPV Neut % (Auto) Lymph % (Auto) [place] % (Auto) Eos % (Auto) Baso % (Auto) Neut # (Auto) Lymph # (Auto) [place] # (Auto) Eos # (Auto) Baso # (Auto) WBC Differential Differential Comment PT INR APTT Puncture Site Left radial Patient Temperature 98.6 O2 Saturation 96 ABG pH 7.23 L* ABG pCO2 21 L* ABG pO2 122 H ABG HCO3 8 L* ABG O2 Content 19.1 ABG Base Excess -18.1 L ABG Methemoglobin 1.4 Gus Test Present Hemoglobin 14.0 Carboxyhemoglobin 0.7 O2 Delivery Device Room air Inspired O2 21 Critical Value Yes Sodium Potassium Chloride Carbon Dioxide Anion Gap BUN Creatinine Estimated GFR Random Glucose Calcium Phosphorus Magnesium 3.2 H Total Bilirubin AST ALT Alkaline Phosphatase Total Creatine Kinase Troponin I Total Protein Albumin Lipase Urine Color Yellow Urine Clarity Turbid H Urine pH 7.5 Ur Specific [place] 1.020 Urine Protein 300 or greater H Urine Glucose (UA) Negative Urine Ketones Negative Urine Occult Blood Urine Nitrate Positive H Urine Bilirubin Negative Urine Urobilinogen 0.2 Ur Leukocyte Esterase Large H Urine RBC 15-50 H Urine WBC Innumerable H Urine WBC Clumps Many H Urine Bacteria Many H Micro UA Comment Cath-culture ind Ur Microscopic Review Microscopic reviewed Urine Culture Comments Cath-cult indicated 04/25/18 04/25/18 05:22 05:22 CBC w Diff Auto diff final WBC 9.0 RBC 4.46 L Hgb 12.8 L Hct 38.3 L MCV 86.1 MCH 28.8 MCHC 33.4 RDW 14.6 Plt Count 334 MPV 7.9 Neut % (Auto) 88.1 H Lymph % (Auto) 5.9 L [place] % (Auto) 5.6 Eos % (Auto) 0.1 Baso % (Auto) 0.3 Neut # (Auto) 8.0 H Lymph # (Auto) 0.5 L [place] # (Auto) 0.5 Eos # (Auto) 0.0 Baso # (Auto) 0.0 WBC Differential . Differential Comment . PT INR APTT Puncture Site Patient Temperature O2 Saturation ABG pH ABG pCO2 ABG pO2 ABG HCO3 ABG O2 Content ABG Base Excess ABG Methemoglobin Gus Test Hemoglobin Carboxyhemoglobin O2 Delivery Device Inspired O2 Critical Value Sodium 150 H Potassium 5.6 H Chloride 121 H Carbon Dioxide 12.8 L Anion Gap 16 H BUN 169 H Creatinine 10.00 H Estimated GFR 5 L Random Glucose 87 Calcium 8.5 Phosphorus 8.0 H Magnesium Total Bilirubin AST ALT Alkaline Phosphatase Total Creatine Kinase Troponin I Total Protein Albumin Lipase 859 H Urine Color Urine Clarity Urine pH Ur Specific [place] Urine Protein Urine Glucose (UA) Urine Ketones Urine Occult Blood Urine Nitrate Urine Bilirubin Urine Urobilinogen Ur Leukocyte Esterase Urine RBC Urine WBC Urine WBC Clumps Urine Bacteria Micro UA Comment Ur Microscopic Review Urine Culture Comments - Imaging Impressions Chest X-Ray 04/24/18 17:46 CONCLUSION: No acute cardiopulmonary abnormality is identified. Overall, stable exam. - ABG ABG results: 04/24/18 19:05 ABG pH 7.23 L* ABG pCO2 21 L* ABG pO2 122 H ABG HCO3 8 L* ABG O2 Content 19.1 ABG Base Excess -18.1 L ABG Methemoglobin 1.4 Assessment and Plan - Assessment (1) Acute renal failure superimposed on stage 4 chronic kidney disease Code(s): N17.9 - Acute kidney failure, unspecified; N18.4 - Chronic kidney disease, stage 4 (severe) Status: Acute (2) Metabolic acidosis Code(s): E87.2 - Acidosis Status: Acute (3) Metabolic encephalopathy Code(s): G93.41 - Metabolic encephalopathy Status: Acute (4) Hyperkalemia Code(s): E87.5 - Hyperkalemia Status: Acute (5) Urinary tract infection Code(s): N39.0 - Urinary tract infection, site not specified Status: Resolved (6) History of colon cancer Code(s): Z85.038 - Personal history of other malignant neoplasm of large intestine Status: Resolved (7) Hx of colonic polyps Code(s): Z86.010 - Personal history of colonic polyps Status: Resolved (8) Glaucoma Code(s): H40.9 - Unspecified glaucoma Status: Chronic (9) Atherosclerosis of aorta Code(s): I70.0 - Atherosclerosis of aorta Status: Chronic (10) Lumbar degenerative disc disease Code(s): M51.36 - Other intervertebral disc degeneration, lumbar region Status : Chronic (11) Hypermagnesemia Code(s): E83.41 - Hypermagnesemia Status: Acute (12) Elevated lipase Code(s): R74.8 - Abnormal levels of other serum enzymes Status: Acute - Plan Plan: I discussed the case with the chief technologist (Dr. Beckman) on 04-24-18 and he recommended that the patient be given 1/2 normal saline with 2 amps of sodium bicarb with a rate of 100 mL's per hour. His CO2 is up some so continue this. His BUN and creatinine have showed no significant change so far. His lipase is elevated for no obvious reason. He doesn't seem to be tender in the abdomen. He is not able to give any history due to his confusion. I will order an ultrasound of the abdomen for today. His magnesium level was slightly high last night. He had been on Magnesium orally by home docs. This was stopped. Continue SCDs and ERI geee for DVT prophylaxis. He will be maintained at bedrest. He will be maintained n.p.o. for now. A urine culture was ordered in the ER and he was started on Rocephin 1 g IV every 24 hours on 04-24-18. Patient is a no code. If patient does not respond to the IV fluids and his kidney function doesn't improve then he will likely be placed on hospice care. He has no family members according to the exchange consultant. Code Status: Patient is a DNR.
[2018-04-25] MEDS ORDERED: Dorzolamide 2% Opth Drops 10 ML Bottle EACH EYE SCH (09:00)
--- NOTE | 2018-04-25 10:53 | US ---
EXAM DATE: 04/25/2018 12:00 AM EDT AGE/SEX: 87 years / Male INDICATIONS: Elevated lipase. Kidney failure. Pain. CLINICAL DATA: This is the patient's subsequent encounter. Patient reports that signs and symptoms h ave been present for 1 day and indicates a pain score of 0/10. MEDICAL/SURGICAL HISTORY: . CKD. Colon cancer. Colon polyps. Glaucoma. Atherosclerosis. . C olostomy. Colonoscopy. Left nisha-colectomy. Colostomy closure. COMPARISON: [facility], US KIDNEY/RENAL/BLADDER, 08/20/2017. . MEASUREMENTS: Liver:__ 12.7 cm. Common Bile Duct:___ 9mm. Right Kidney:___8.5 x 3.2 x 3.9 cm. Left Kidney:___13.4 x 5.5 x 9.1 cm. Spleen:___10.2 cm. FINDINGS: Liver: Normal echotexture without focal lesion or ductal dilatation. Portal Vein: Hepatopedal flow seen in portal vein. Common Duct: Mildly dilated at 9 mm. Gallbladder: Gallbladder sludge present. Pancreas: The visualized portions are within normal limits Right Kidney: Moderate hydronephrosis of unknown etiology. Left Kidney: Severe hydronephrosis of unknown etiology. Ascites: None Pleural Effusion: None Spleen: No focal lesion. Aorta: Atherosclerotic change. IVC: Within normal limits Other: None. CONCLUSION: 1. Bilateral renal hydronephrosis, worse on the left side of unknown etiology. 2. Positive gallbladder sludge with mildly dilated common bile duct. Electronically signed by: Darin Jo MD 04/25/2018 10:51 AM EDT
--- NOTE | 2018-04-25 14:45 | P.CONNP ---
History of Present Illness Service: Nephrology Consult date: 04/25/18 Requesting Physician: Buck Barton Reason for Consult: End-stage renal disease Primary Care Provider: No Primary Care Physician Family Provider: No Primary Care Physician Chief Complaint: Confusion and weakness History of Present Illness: Patient is a 87-year-old white male with known history of chronic kidney disease stage IV, hypertension, who has not been doing well and was found confused, nauseated, unable to eat or drink properly, loss of weight present Found to have profound azotemia Ultrasound of the kidney showed atrophic right kidney and left hydronephrosis more pronounced than right Solares catheter in place No change in azotemia with IV fluid of Solares catheter insertion Patient remains confused. Dr. 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 Review of Systems unobtainable due to mental status PMFSH - History History Provided By: Friend - Medical History Medical History: Medical History (Last Updated 04/25/18 @ 14:38 by Nicole Beckman MD) Anemia Atherosclerotic aneurysm Cataract (lens) fragments in eye following cataract surgery Chronic kidney disease, stage IV (severe) Colon cancer Degenerative joint disease Hypertension Nonfunctioning kidney Pyelonephritis Patient unable to obtain medication - Surgical History Surgical History: Surgical History (Last Updated 04/25/18 @ 14:40 by Nicole Beckman MD) H/O hemicolectomy H/O inguinal hernia repair History of colostomy History of colostomy reversal - Tobacco History Second Hand Smoke Exposure: No Smoking Status: Never smoker - Alcohol History How Often Do You Have a Drink Containing Alcohol: Never - Substance Use History Substance History: No History of Abuse - Travel History Recent Travel in the [place] Within the Last 8 Weeks: No Recent Travel Out of the Country Within the Last 8 Weeks: No - Immunization History Tetanus Immunization: Unable to Assess Hx Influenza Vaccine This Season: Unable to Assess Medications and Allergies Active Medications: Active Medications Calcium Carbonate (Tums Chew) 1,000 mg PO DAILY [facility] Last Admin: 04/25/18 08:59 Dose: Not Given Dorzolamide HCl (Trusopt 2% Opth Drops) 1 drop EACH EYE HS [facility] Last Admin: 04/25/18 00:33 Dose: Not Given Ceftriaxone Sodium 1,000 mg/ (Sodium Chloride) 100 mls @ 200 mls/hr IV.SIG Q24H [facility] Last Infusion: 04/24/18 21:05 Dose: Infused Sodium Bicarbonate 100 meq/ (Sodium Chloride) 1,000 mls @ 100 mls/hr IV.CONT .Q10H [facility] Last Infusion: 04/25/18 06:20 Dose: Infused Latanoprost (Xalatan 0.005% Opth Drops) 1 drop EACH EYE HS [facility] Last Admin: 04/25/18 00:33 Dose: Not Given Allergies Allergy/AdvReac Type Severity Reaction Status Date / Time acetaminophen Allergy Severe rash Verified 08/19/17 12:56 aspirin Allergy Severe rash Verified 08/19/17 12:56 ibuprofen Allergy Severe hives Verified 08/19/17 12:56 lorazepam Allergy Severe rash Verified 08/19/17 12:56 Home Medications Medication Instructions Recorded Confirmed Type calcium carbonate [Tums] 1,000 mg PO DAILY 04/24/18 04/24/18 History dorzolamide [Trusopt] 1 drp OPHTHALMIC (EYE) DAILY 04/24/18 04/24/18 History latanoprost [Xalatan] 1 drp OPHTHALMIC (EYE) QPM 04/24/18 04/24/18 History magnesium 500 mg PO DAILY 04/24/18 04/24/18 History tramadol 50 mg PO DAILY 04/24/18 04/24/18 History Exam Vital signs: Vital Signs 04/24/18 17:44 04/24/18 18:07 04/24/18 20:40 Temperature Pulse Rate 83 79 87 Respiratory Rate 16 16 18 Blood Pressure 188/80 H 141/92 H 180/71 H Pulse Oximetry 98 96 2 L 04/24/18 20:56 04/24/18 22:00 04/25/18 00:00 Temperature 97.0 F L Pulse Rate 85 84 84 Respiratory Rate 18 18 Blood Pressure 159/78 H 170/79 H Pulse Oximetry 97 96 04/25/18 04:00 04/25/18 08:00 04/25/18 12:00 Temperature 97.4 F L 97.5 F L 97.6 F Pulse Rate 79 82 88 Respiratory Rate 18 20 20 Blood Pressure 147/83 H 153/77 H 132/69 Pulse Oximetry 100 95 97 Intake & Output 04/24/18 04/25/18 04/25/18 18:59 06:59 18:59 Intake Total 3100 / 3100 Output Total 500 / 500 450 / 450 Balance 2600 / 2600 -450 / -450 Weight 54.683 kg 54.6 kg Intake: IV 3100 / 3100 Sodium Bicarbonate 8.4% Inj 100 2000 / 2000 MEQ In 1/2 Normal Saline Inj 900 ML @ 100 mls/hr IV.CONT . Q10H [facility] Rx#:[id number] NS Inj 1,000 ML @ Wide Open IV. 1000 / 1000 SIG BOLUS ONE Rx#:[id number] Rocephin Inj 1,000 MG In NS Inj 100 / 100 100 ML @ 200 mls/hr IV.SIG Q24H [facility] Rx#:[id number] Output: Urine 500 / 500 Urine Amount (Catheter) 450 / 450 Indwelling Urethral Catheter 450 / 450 Other: Weight On Admission 55 kg Narrative: GENERAL: mal-nourished, well-developed weak, confused elderly patient. SKIN: Warm and dry. HEAD: Normocephalic. EYES: No scleral icterus. No injection or drainage. NECK: Supple, trachea midline. No JVD or lymphadenopathy. CARDIOVASCULAR: Regular rate and rhythm without murmurs, gallops, or rubs. RESPIRATORY: Breath sounds equal bilaterally. No accessory muscle use. GASTROINTESTINAL: Abdomen soft, non-tender, nondistended. EXTREMITIES: Muscle wasting present NEUROLOGICAL: Confused Results - Lab Results 04/25/18 05:22 04/25/18 05:22 Most recent lab results ABG pH 7.23 (7.380-7.420) L* 04/24/18 19:05 ABG pCO2 21 mmHg (38-42) L* 04/24/18 19:05 ABG pO2 122 mmHg (61-120) H 04/24/18 19:05 ABG HCO3 8 mmol/L (22-26) L* 04/24/18 19:05 Calcium 8.5 mg/dL (8.5-10.1) 04/25/18 05:22 Phosphorus 8.0 mg/dL (2.5-4.9) H 04/25/18 05:22 Magnesium 3.1 mg/dL (1.5-2.5) H 04/25/18 05:22 Assessment and Plan - Assessment (1) End stage renal disease Code(s): N18.6 - End stage renal disease Status: Acute (2) Acute renal failure superimposed on stage 4 chronic kidney disease Code(s): N17.9 - Acute kidney failure, unspecified; N18.4 - Chronic kidney disease, stage 4 (severe) Status: Acute (3) Metabolic encephalopathy Code(s): G93.41 - Metabolic encephalopathy Status: Acute (4) Urinary tract infection Code(s): N39.0 - Urinary tract infection, site not specified Status: Resolved (5) History of colon cancer Code(s): Z85.038 - Personal history of other malignant neoplasm of large intestine Status: Resolved (6) Hyperkalemia Code(s): E87.5 - Hyperkalemia Status: Acute - Plan Patient is doing poorly in has profound azotemia, has metabolic encephalopathy, Solares catheter in place has left hydronephrosis, right kidney atrophy, there is no reversal of renal failure He may have developed end-stage renal disease At this point discussed with Dr. Barton continue with conservative measures, has February 05, 2018 admission showed a BUN of 62 and creatinine was 3.06 Continue with hydration to see if any improvement in his renal functions happens , In case azotemia does not improve patient wishes that he do not wants aggressive care and Dr. Barton will make a call to hospice. Will monitor.
--- NOTE | 2018-04-25 17:53 | P.CONURO ---
History of Present Illness Service: Consult date: 04/25/18 Requesting Physician: Buck Barton Reason for Consult: Bilateral hydronephrosis Primary Care Provider: No Primary Care Physician Family Provider: No Primary Care Physician Chief Complaint: Confusion and weakness History of Present Illness: 87-year-old gentleman with history chronic kidney disease admitted with failure to thrive. During the course of his present hospitalization a renal ultrasound study was performed that demonstrated bilateral hydronephrosis worse on the left in comparison to the right. Patient had marked elevation in the serum creatinine measuring 10 and a Solares catheter was placed. Urinalysis also was consistent with a urinary tract infection with innumerable white blood cells per high-power field,15-50 red cells per high-power field and leukocyte esterase positive. Preliminary urine culture results grew out gram-negative rods. At the time of urologic consultation the patient was lying quietly in bed and in no acute distress. He was a very poor historian. He denied any pain. PMFSH - History History Provided By: Friend - Medical History Medical History: Medical History (Last Updated 04/25/18 @ 14:38 by Nicole Beckman MD) Anemia Atherosclerotic aneurysm Cataract (lens) fragments in eye following cataract surgery Chronic kidney disease, stage IV (severe) Colon cancer Degenerative joint disease Hypertension Nonfunctioning kidney Pyelonephritis Patient unable to obtain medication - Surgical History Surgical History: Surgical History (Last Updated 04/25/18 @ 14:40 by Nicole Beckman MD) H/O hemicolectomy H/O inguinal hernia repair History of colostomy History of colostomy reversal - Tobacco History Second Hand Smoke Exposure: No Smoking Status: Never smoker - Alcohol History How Often Do You Have a Drink Containing Alcohol: Never - Substance Use History Substance History: No History of Abuse - Travel History Recent Travel in the [place] Within the Last 8 Weeks: No Recent Travel Out of the Country Within the Last 8 Weeks: No - Immunization History Tetanus Immunization: Unable to Assess Hx Influenza Vaccine This Season: Unable to Assess Medications and Allergies Active Medications: Active Medications Calcium Carbonate (Tums Chew) 1,000 mg PO DAILY [facility] Last Admin: 04/25/18 08:59 Dose: Not Given Dorzolamide HCl (Trusopt 2% Opth Drops) 1 drop EACH EYE HS [facility] Last Admin: 04/25/18 00:33 Dose: Not Given Ceftriaxone Sodium 1,000 mg/ (Sodium Chloride) 100 mls @ 200 mls/hr IV.SIG Q24H [facility] Last Infusion: 04/24/18 21:05 Dose: Infused Sodium Bicarbonate 100 meq/ (Sodium Chloride) 1,000 mls @ 100 mls/hr IV.CONT .Q10H [facility] Last Admin: 04/25/18 16:05 Dose: 100 mls/hr Latanoprost (Xalatan 0.005% Opth Drops) 1 drop EACH EYE HS [facility] Last Admin: 04/25/18 00:33 Dose: Not Given Allergies Allergy/AdvReac Type Severity Reaction Status Date / Time acetaminophen Allergy Severe rash Verified 08/19/17 12:56 aspirin Allergy Severe rash Verified 08/19/17 12:56 ibuprofen Allergy Severe hives Verified 08/19/17 12:56 lorazepam Allergy Severe rash Verified 08/19/17 12:56 Home Medications Medication Instructions Recorded Confirmed Type calcium carbonate [Tums] 1,000 mg PO DAILY 04/24/18 04/24/18 History dorzolamide [Trusopt] 1 drp OPHTHALMIC (EYE) DAILY 04/24/18 04/24/18 History latanoprost [Xalatan] 1 drp OPHTHALMIC (EYE) QPM 04/24/18 04/24/18 History magnesium 500 mg PO DAILY 04/24/18 04/24/18 History tramadol 50 mg PO DAILY 04/24/18 04/24/18 History Physical Exam Vital Signs - 24 hr 04/24/18 18:07 04/24/18 20:40 04/24/18 20:56 Temperature Pulse Rate 79 87 85 Respiratory Rate 16 18 18 Blood Pressure 141/92 H 180/71 H 159/78 H Pulse Oximetry 96 2 L 97 04/24/18 22:00 04/25/18 00:00 04/25/18 04:00 Temperature 97.0 F L 97.4 F L Pulse Rate 84 84 79 Respiratory Rate 18 18 Blood Pressure 170/79 H 147/83 H Pulse Oximetry 96 100 04/25/18 08:00 04/25/18 12:00 04/25/18 16:00 Temperature 97.5 F L 97.6 F 97.6 F Pulse Rate 82 88 89 Respiratory Rate 20 20 20 Blood Pressure 153/77 H 132/69 131/79 Pulse Oximetry 95 97 97 Physical Exam: GENERAL: This is a well-nourished, well-developed patient, in no apparent distress. SKIN: No rashes, ecchymoses or lesions. Cool and dry. HEAD: Atraumatic. Normocephalic. No temporal or scalp tenderness. EYES: Pupils equal round and reactive. Extraocular motions intact. No scleral icterus. No injection or drainage. ENT: Nose without bleeding, purulent drainage or septal hematoma. Throat without erythema, tonsillar hypertrophy or exudate. Uvula midline. Airway patent. NECK: Trachea midline. No JVD or lymphadenopathy. Supple, nontender, no meningeal signs. GASTROINTESTINAL: Abdomen soft, non-tender, nondistended. No hepato-splenomegaly , or palpable masses. No guarding. GENITOURINARY: Solares in place draining yellow urine with some sediment in the tubing. Bladder was not distended. No CVA tenderness MUSCULOSKELETAL: Extremities without clubbing, cyanosis, or edema. No joint tenderness, effusion, or edema noted. No calf tenderness. Negative Homans sign bilaterally. NEUROLOGICAL: Awake and alert. Cranial nerves II through XII intact. Motor and sensory grossly within normal limits. Laboratory Results - last 24 hr 04/24/18 04/24/18 04/24/18 18:00 18:00 18:00 CBC w Diff Auto diff final WBC 9.4 RBC 4.89 Hgb 13.7 Hct 42.1 MCV 86.1 MCH 28.0 MCHC 32.5 RDW 14.9 Plt Count 357 MPV 8.2 Neut % (Auto) 93.6 H Lymph % (Auto) 3.1 L Fountain % (Auto) 1.6 Eos % (Auto) 0.7 Baso % (Auto) 1.0 Neut # (Auto) 8.7 H Lymph # (Auto) 0.3 L [place] # (Auto) 0.2 Eos # (Auto) 0.1 Baso # (Auto) 0.1 WBC Differential . Differential Comment . PT 12.4 H INR 1.2 APTT 39.6 H Puncture Site Patient Temperature O2 Saturation ABG pH ABG pCO2 ABG pO2 ABG HCO3 ABG O2 Content ABG Base Excess ABG Methemoglobin Gus Test Hemoglobin Carboxyhemoglobin O2 Delivery Device Inspired O2 Critical Value Sodium 147 H Potassium 5.8 H Chloride 121 H Carbon Dioxide 9.5 L Anion Gap 17 H BUN 167 H Creatinine 10.00 H Estimated GFR 5 L Random Glucose 107 H Calcium 7.9 L Phosphorus Magnesium Total Bilirubin 0.2 AST 8 L ALT 10 L Alkaline Phosphatase 67 Total Creatine Kinase 98 Troponin I 0.12 H Total Protein 7.4 Albumin 2.8 L Lipase 705 H Urine Color Urine Clarity Urine pH Ur Specific [place] Urine Protein Urine Glucose (UA) Urine Ketones Urine Occult Blood Urine Nitrate Urine Bilirubin Urine Urobilinogen Ur Leukocyte Esterase Urine RBC Urine WBC Urine WBC Clumps Urine Bacteria Micro UA Comment Ur Microscopic Review Urine Culture Comments 04/24/18 04/24/18 04/24/18 18:00 18:33 19:05 CBC w Diff WBC RBC Hgb Hct MCV MCH MCHC RDW Plt Count MPV Neut % (Auto) Lymph % (Auto) Fountain % (Auto) Eos % (Auto) Baso % (Auto) Neut # (Auto) Lymph # (Auto) Fountain # (Auto) Eos # (Auto) Baso # (Auto) WBC Differential Differential Comment PT INR APTT Puncture Site Left radial Patient Temperature 98.6 O2 Saturation 96 ABG pH 7.23 L* ABG pCO2 21 L* ABG pO2 122 H ABG HCO3 8 L* ABG O2 Content 19.1 ABG Base Excess -18.1 L ABG Methemoglobin 1.4 Gus Test Present Hemoglobin 14.0 Carboxyhemoglobin 0.7 O2 Delivery Device Room air Inspired O2 21 Critical Value Yes Sodium Potassium Chloride Carbon Dioxide Anion Gap BUN Creatinine Estimated GFR Random Glucose Calcium Phosphorus Magnesium 3.2 H Total Bilirubin AST ALT Alkaline Phosphatase Total Creatine Kinase Troponin I Total Protein Albumin Lipase Urine Color Yellow Urine Clarity Turbid H Urine pH 7.5 Ur Specific [place] 1.020 Urine Protein 300 or greater H Urine Glucose (UA) Negative Urine Ketones Negative Urine Occult Blood Urine Nitrate Positive H Urine Bilirubin Negative Urine Urobilinogen 0.2 Ur Leukocyte Esterase Large H Urine RBC 15-50 H Urine WBC Innumerable H Urine WBC Clumps Many H Urine Bacteria Many H Micro UA Comment Cath-culture ind Ur Microscopic Review Microscopic reviewed Urine Culture Comments Cath-cult indicated 04/25/18 04/25/18 04/25/18 05:22 05:22 05:22 CBC w Diff Auto diff final WBC 9.0 RBC 4.46 L Hgb 12.8 L Hct 38.3 L MCV 86.1 MCH 28.8 MCHC 33.4 RDW 14.6 Plt Count 334 MPV 7.9 Neut % (Auto) 88.1 H Lymph % (Auto) 5.9 L [place] % (Auto) 5.6 Eos % (Auto) 0.1 Baso % (Auto) 0.3 Neut # (Auto) 8.0 H Lymph # (Auto) 0.5 L [place] # (Auto) 0.5 Eos # (Auto) 0.0 Baso # (Auto) 0.0 WBC Differential . Differential Comment . PT INR APTT Puncture Site Patient Temperature O2 Saturation ABG pH ABG pCO2 ABG pO2 ABG HCO3 ABG O2 Content ABG Base Excess ABG Methemoglobin Gus Test Hemoglobin Carboxyhemoglobin O2 Delivery Device Inspired O2 Critical Value Sodium 150 H Potassium 5.6 H Chloride 121 H Carbon Dioxide 12.8 L Anion Gap 16 H BUN 169 H Creatinine 10.00 H Estimated GFR 5 L Random Glucose 87 Calcium 8.5 Phosphorus 8.0 H Magnesium 3.1 H Total Bilirubin AST ALT Alkaline Phosphatase Total Creatine Kinase Troponin I Total Protein Albumin Lipase 859 H Urine Color Urine Clarity Urine pH Ur Specific [place] Urine Protein Urine Glucose (UA) Urine Ketones Urine Occult Blood Urine Nitrate Urine Bilirubin Urine Urobilinogen Ur Leukocyte Esterase Urine RBC Urine WBC Urine WBC Clumps Urine Bacteria Micro UA Comment Ur Microscopic Review Urine Culture Comments Microbiology 04/24/18 18:33 Urine Culture - Preliminary Catheterized Urine gram negative rods Result Diagrams: 04/25/18 05:22 04/25/18 05:22 Imaging: ITS Impressions Chest X-Ray 04/24/18 17:46 CONCLUSION: No acute cardiopulmonary abnormality is identified. Overall, stable exam. Abdomen Ultrasound 04/25/18 00:00 CONCLUSION: 1. Bilateral renal hydronephrosis, worse on the left side of unknown etiology. 2. Positive gallbladder sludge with mildly dilated common bile duct. Assessment and Plan - Assessment (1) Hydronephrosis, bilateral Code(s): N13.30 - Unspecified hydronephrosis Status: Acute (2) Urinary tract infection Code(s): N39.0 - Urinary tract infection, site not specified Status: Resolved - Plan Urologic impression: 1. Bilateral hydronephrosis likely related to urinary retention 2. Worsening kidney disease likely exacerbated with urinary retention 3. Urinary tract infection related to urinary retention Recommendations: 1. Due to overall poor health status would manage conservatively with an indwelling Solares catheter. 2. Agree with present management of urinary tract infection 3. Should overall clinical status improved and the patient can follow-up with me in the office as an outpatient.
[2018-04-25] MEDS ORDERED: Latanoprost 0.005% Opth Drops 2.5 ML Bottle EACH EYE SCH (18:00)
--- NOTE | 2018-04-25 22:44 | ECG ---
Date Performed: 04/24/2018 Time Performed: 17:35:03 PTAGE: 87 years EKG: Sinus rhythm RIGHT BUNDLE BRANCH BLOCK LEFT ANTERIOR FASCICULAR BLOCK LEFT VENTRICULAR HYPERTROPHY AND ST-T LESTER E ABNORMAL ECG PREVIOUS TRACING : 08/19/2017 11.36 Since the previous tracing, no significant change noted DOCTOR: Allison Márquez Interpretating Date/Time 04/25/2018 22:44:08
[2018-04-26] MEDS: Sodium Bicarbonate 8.4% Inj 100 MEQ in Sodium Chloride 0.45 % Inj 900 ML IV.CONT SCH (02:50)
[2018-04-26 07:21] LABS: Albumin 2.7 g/dL (3.4-5.0); Calcium 8.1 mg/dL (8.5-10.1); Carbon Dioxide 22.2 meq/L (21.0-32.0); Phosphorus 5.7 mg/dL (2.5-4.9); Potassium 4.7 meq/L (3.5-5.1)
--- NOTE | 2018-04-26 08:11 | P.PN ---
Subjective Interval history: He is more alert today. No pain or shortness of breath. States he wants something to eat and drink. Physical Exam Vital signs: Vital Signs 04/25/18 12:00 04/25/18 16:00 04/25/18 20:00 Temperature 97.6 F 97.6 F 98 F Pulse Rate 88 89 88 Respiratory Rate 20 20 16 Blood Pressure 132/69 131/79 136/79 Pulse Oximetry 97 97 92 L 04/26/18 00:00 Temperature 96.3 F L Pulse Rate 95 H Respiratory Rate 18 Blood Pressure 107/56 L Pulse Oximetry 100 Intake & Output 04/25/18 04/26/18 04/26/18 18:59 06:59 18:59 Intake Total 196 / 196 904 / 904 Output Total 840 / 840 1550 / 1550 Balance -644 / -644 -646 / -646 Weight 55 kg Intake: IV 196 / 196 904 / 904 Sodium Bicarbonate 8.4% Inj 100 196 / 196 804 / 804 MEQ In 1/2 Normal Saline Inj 900 ML @ 100 mls/hr IV.CONT . Q10H CARMENZA Rx#:[id number] Rocephin Inj 1,000 MG In NS Inj 100 / 100 100 ML @ 200 mls/hr IV.SIG Q24H CARMENZA Rx#:[id number] Oral 0 / 0 Output: Urine 1000 / 1000 Urine Amount (Catheter) 840 / 840 550 / 550 Indwelling Urethral Catheter 840 / 840 550 / 550 Narrative: Exam: Thin elderly white male. He is more alert today. HEENT: Pupils equal, no scleral icterus, mouth without lesions Neck: No JVD Heart: RRR with no murmurs Lungs: Clear Abdomen: Soft, nondistended, no apparent tenderness Extremities: No edema, pulses palpated but diminished Neuro: More alert, moves all extremities - Urinary Catheter Management Indwelling Urethral Catheter Cath placed during this visit: yes Urethral indwelling: Yes Reason for continuing: Hourly intake/output Insertion date: 04/24/18 Results - Labs CBC & Chem 7: 04/25/18 05:22 04/26/18 05:15 Laboratory Results - last 24 hr 04/24/18 04/25/18 04/26/18 18:33 15:45 05:15 Sodium 157 H* Potassium 4.7 D Chloride 121 H Carbon Dioxide 22.2 D Anion Gap 14 BUN 140 H Creatinine 7.60 H Estimated GFR 7 L Random Glucose 73 L Calcium 8.1 L Phosphorus 5.7 H D Albumin 2.7 L PTH Intact 220.7 H Urine Color Yellow Urine Clarity Turbid H Urine pH 7.5 Ur Specific [place] 1.020 Urine Protein 300 or greater H Urine Glucose (UA) Negative Urine Ketones Negative Urine Occult Blood Urine Nitrate Positive H Urine Bilirubin Negative Urine Urobilinogen 0.2 Ur Leukocyte Esterase Large H Urine RBC 15-50 H Urine WBC Innumerable H Urine WBC Clumps Many H Urine Bacteria Many H Micro UA Comment Cath-culture ind Ur Microscopic Review Microscopic reviewed Urine Culture Comments Cath-cult indicated Microbiology 04/24/18 18:33 Catheterized Urine Urine Culture - Preliminary gram negative rods Laboratory Results - last 48 hr 04/24/18 04/24/18 04/24/18 18:00 18:00 18:00 CBC w Diff Auto diff final WBC 9.4 RBC 4.89 Hgb 13.7 Hct 42.1 MCV 86.1 MCH 28.0 MCHC 32.5 RDW 14.9 Plt Count 357 MPV 8.2 Neut % (Auto) 93.6 H Lymph % (Auto) 3.1 L [place] % (Auto) 1.6 Eos % (Auto) 0.7 Baso % (Auto) 1.0 Neut # (Auto) 8.7 H Lymph # (Auto) 0.3 L [place] # (Auto) 0.2 Eos # (Auto) 0.1 Baso # (Auto) 0.1 WBC Differential . Differential Comment . PT 12.4 H INR 1.2 APTT 39.6 H Puncture Site Patient Temperature O2 Saturation ABG pH ABG pCO2 ABG pO2 ABG HCO3 ABG O2 Content ABG Base Excess ABG Methemoglobin Gus Test Hemoglobin Carboxyhemoglobin O2 Delivery Device Inspired O2 Critical Value Sodium 147 H Potassium 5.8 H Chloride 121 H Carbon Dioxide 9.5 L Anion Gap 17 H BUN 167 H Creatinine 10.00 H Estimated GFR 5 L Random Glucose 107 H Calcium 7.9 L Phosphorus Magnesium Total Bilirubin 0.2 AST 8 L ALT 10 L Alkaline Phosphatase 67 Total Creatine Kinase 98 Troponin I 0.12 H Total Protein 7.4 Albumin 2.8 L Lipase 705 H PTH Intact Urine Color Urine Clarity Urine pH Ur Specific [place] Urine Protein Urine Glucose (UA) Urine Ketones Urine Occult Blood Urine Nitrate Urine Bilirubin Urine Urobilinogen Ur Leukocyte Esterase Urine RBC Urine WBC Urine WBC Clumps Urine Bacteria Micro UA Comment Ur Microscopic Review Urine Culture Comments 04/24/18 04/24/18 04/24/18 18:00 18:33 19:05 CBC w Diff WBC RBC Hgb Hct MCV MCH MCHC RDW Plt Count MPV Neut % (Auto) Lymph % (Auto) [place] % (Auto) Eos % (Auto) Baso % (Auto) Neut # (Auto) Lymph # (Auto) [place] # (Auto) Eos # (Auto) Baso # (Auto) WBC Differential Differential Comment PT INR APTT Puncture Site Left radial Patient Temperature 98.6 O2 Saturation 96 ABG pH 7.23 L* ABG pCO2 21 L* ABG pO2 122 H ABG HCO3 8 L* ABG O2 Content 19.1 ABG Base Excess -18.1 L ABG Methemoglobin 1.4 Gus Test Present Hemoglobin 14.0 Carboxyhemoglobin 0.7 O2 Delivery Device Room air Inspired O2 21 Critical Value Yes Sodium Potassium Chloride Carbon Dioxide Anion Gap BUN Creatinine Estimated GFR Random Glucose Calcium Phosphorus Magnesium 3.2 H Total Bilirubin AST ALT Alkaline Phosphatase Total Creatine Kinase Troponin I Total Protein Albumin Lipase PTH Intact Urine Color Yellow Urine Clarity Turbid H Urine pH 7.5 Ur Specific [place] 1.020 Urine Protein 300 or greater H Urine Glucose (UA) Negative Urine Ketones Negative Urine Occult Blood Urine Nitrate Positive H Urine Bilirubin Negative Urine Urobilinogen 0.2 Ur Leukocyte Esterase Large H Urine RBC 15-50 H Urine WBC Innumerable H Urine WBC Clumps Many H Urine Bacteria Many H Micro UA Comment Cath-culture ind Ur Microscopic Review Microscopic reviewed Urine Culture Comments Cath-cult indicated 04/25/18 04/25/18 04/25/18 05:22 05:22 05:22 CBC w Diff Auto diff final WBC 9.0 RBC 4.46 L Hgb 12.8 L Hct 38.3 L MCV 86.1 MCH 28.8 MCHC 33.4 RDW 14.6 Plt Count 334 MPV 7.9 Neut % (Auto) 88.1 H Lymph % (Auto) 5.9 L [place] % (Auto) 5.6 Eos % (Auto) 0.1 Baso % (Auto) 0.3 Neut # (Auto) 8.0 H Lymph # (Auto) 0.5 L [place] # (Auto) 0.5 Eos # (Auto) 0.0 Baso # (Auto) 0.0 WBC Differential . Differential Comment . PT INR APTT Puncture Site Patient Temperature O2 Saturation ABG pH ABG pCO2 ABG pO2 ABG HCO3 ABG O2 Content ABG Base Excess ABG Methemoglobin Gus Test Hemoglobin Carboxyhemoglobin O2 Delivery Device Inspired O2 Critical Value Sodium 150 H Potassium 5.6 H Chloride 121 H Carbon Dioxide 12.8 L Anion Gap 16 H BUN 169 H Creatinine 10.00 H Estimated GFR 5 L Random Glucose 87 Calcium 8.5 Phosphorus 8.0 H Magnesium 3.1 H Total Bilirubin AST ALT Alkaline Phosphatase Total Creatine Kinase Troponin I Total Protein Albumin Lipase 859 H PTH Intact Urine Color Urine Clarity Urine pH Ur Specific [place] Urine Protein Urine Glucose (UA) Urine Ketones Urine Occult Blood Urine Nitrate Urine Bilirubin Urine Urobilinogen Ur Leukocyte Esterase Urine RBC Urine WBC Urine WBC Clumps Urine Bacteria Micro UA Comment Ur Microscopic Review Urine Culture Comments 04/25/18 04/26/18 15:45 05:15 CBC w Diff WBC RBC Hgb Hct MCV MCH MCHC RDW Plt Count MPV Neut % (Auto) Lymph % (Auto) [place] % (Auto) Eos % (Auto) Baso % (Auto) Neut # (Auto) Lymph # (Auto) [place] # (Auto) Eos # (Auto) Baso # (Auto) WBC Differential Differential Comment PT INR APTT Puncture Site Patient Temperature O2 Saturation ABG pH ABG pCO2 ABG pO2 ABG HCO3 ABG O2 Content ABG Base Excess ABG Methemoglobin Gus Test Hemoglobin Carboxyhemoglobin O2 Delivery Device Inspired O2 Critical Value Sodium 157 H* Potassium 4.7 D Chloride 121 H Carbon Dioxide 22.2 D Anion Gap 14 BUN 140 H Creatinine 7.60 H Estimated GFR 7 L Random Glucose 73 L Calcium 8.1 L Phosphorus 5.7 H D Magnesium Total Bilirubin AST ALT Alkaline Phosphatase Total Creatine Kinase Troponin I Total Protein Albumin 2.7 L Lipase PTH Intact 220.7 H Urine Color Urine Clarity Urine pH Ur Specific [place] Urine Protein Urine Glucose (UA) Urine Ketones Urine Occult Blood Urine Nitrate Urine Bilirubin Urine Urobilinogen Ur Leukocyte Esterase Urine RBC Urine WBC Urine WBC Clumps Urine Bacteria Micro UA Comment Ur Microscopic Review Urine Culture Comments - Imaging Impressions Abdomen Ultrasound 04/25/18 00:00 CONCLUSION: 1. Bilateral renal hydronephrosis, worse on the left side of unknown etiology. 2. Positive gallbladder sludge with mildly dilated common bile duct. Assessment and Plan - Assessment (1) Acute renal failure superimposed on stage 4 chronic kidney disease Code(s): N17.9 - Acute kidney failure, unspecified; N18.4 - Chronic kidney disease, stage 4 (severe) Status: Acute (2) Metabolic acidosis Code(s): E87.2 - Acidosis Status: Acute (3) Metabolic encephalopathy Code(s): G93.41 - Metabolic encephalopathy Status: Acute (4) Hyperkalemia Code(s): E87.5 - Hyperkalemia Status: Acute (5) Urinary tract infection Code(s): N39.0 - Urinary tract infection, site not specified Status: Resolved (6) History of colon cancer Code(s): Z85.038 - Personal history of other malignant neoplasm of large intestine Status: Resolved (7) Hx of colonic polyps Code(s): Z86.010 - Personal history of colonic polyps Status: Resolved (8) Glaucoma Code(s): H40.9 - Unspecified glaucoma Status: Chronic (9) Atherosclerosis of aorta Code(s): I70.0 - Atherosclerosis of aorta Status: Chronic (10) Lumbar degenerative disc disease Code(s): M51.36 - Other intervertebral disc degeneration, lumbar region Status : Chronic (11) Hypermagnesemia Code(s): E83.41 - Hypermagnesemia Status: Acute (12) Elevated lipase Code(s): R74.8 - Abnormal levels of other serum enzymes Status: Acute (13) Hypernatremia Code(s): E87.0 - Hyperosmolality and hypernatremia Status: Acute (14) Secondary hyperparathyroidism of renal origin Code(s): N25.81 - Secondary hyperparathyroidism of renal origin Status: Acute - Plan Plan: His sodium level is high today likely secondary to his IV fluids with sodium bicarb. I told the nurse to hold his current fluids and call the finishing tunnel operator for a change in his fluids. His BUN/Creatinine is improved since yesterday and his CO2 is 22 now. His lipase is elevated for no obvious reason. His ultrasound showed no obvious pancreatitis and questionable sludge in the gallbladder. His urine culture is growing out a gram negative lemuel so continue Ceftriaxone IV. Continue SCDs and ERI hose for DVT prophylaxis. He will be maintained at bedrest. I ordered a renal diet. Appreciate urology evaluation. Patient is a no code.
[2018-04-26] MEDS: Dextrose 5% in Water Inj 1,000 ML IV.CONT SCH ×2 (10:23→22:07)
--- NOTE | 2018-04-26 15:58 | P.DIET ---
Nutritional Evaluation Type of nutrition evaluation: initial Nutrition screening: Weight Loss > 10 lbs Subjective Subjective Comments: 50% po intake for breakfast and for lunch today Objective - Diagnosis ADRIEN on CKD, AMS - Objective [place] body weight: 89 kg % IBW: 67 Body Weight Used for Calculations: Actual (54.6kg) Energy Needs - Lower Range (kCal/kg): 40 Energy Needs - Upper Range (kCal/kg): 45 Lower Limit kCal/kg (kCals): 2,184 Upper Limit kCal/kg (kCals): 2,457 Lower Limit Protein Factor (Grams per Kg): 0.7 Upper Limit Protein Factor (Grams per Kg): 0.9 Lower Protein Needs (Protein): 41 Upper Protein Needs (Protein): 49 Dietitian Reviewed in Medical Record: Current diet, Curent medications, Intake & Output, Labs, Medical history Diet Order: 40g Protein, 2g Na, 40meq K Oral Diet Intake Amount: Fair 50-75% Objective Comments: PMH Includes: anemia, Atherosclerotic Aneurysm, Cataracts, CKD-stage IV sever, colon cancer, DJD, HTN, non functioning kidney, pyelonephritis Meds Include: Creatinine 7.6, estGFR 7, Phosphorus 5.7, Lipase 926 Assessment Assessment: Pt is at high nutritional risk r/t diagnosis, recent wt loss and very low BMI 16.6. Diet advanced today from NPO. Monitor po intake. Send Suplena oral supplement QD to offer 425 kcal and 10g Protein. Labs reviewed-monitor renal labs. Dietitian will follow. Recommendations: 1. Send Suplena oral supplement QD 2. Dietitian will follow Dietitian to Monitor: Lab values, Electrolytes, Renal labs, Supplement acceptance, Intake & Output, Diet tolerance, Weight change, PO Intake, Medical course
--- NOTE | 2018-04-26 16:02 | P.PNNP ---
Subjective Interval history: Patient has more awake and responsive Physical Exam Vital signs: Vital Signs 04/25/18 20:00 04/26/18 00:00 04/26/18 08:00 Temperature 98 F 96.3 F L 97.6 F Pulse Rate 88 95 H 92 H Respiratory Rate 16 18 18 Blood Pressure 136/79 107/56 L 122/65 Pulse Oximetry 92 L 100 95 04/26/18 12:00 Temperature 97.0 F L Pulse Rate 92 H Respiratory Rate 18 Blood Pressure 115/67 Pulse Oximetry 96 Intake & Output 04/25/18 04/26/18 04/26/18 18:59 06:59 18:59 Intake Total 196 / 196 904 / 904 780 / 780 Output Total 840 / 840 1550 / 1550 550 / 550 Balance -644 / -644 -646 / -646 230 / 230 Weight 55 kg Intake: IV / 196 904 / 904 780 / 780 Sodium Bicarbonate 8.4% Inj 100 196 / 196 804 / 804 780 / 780 MEQ In 1/2 Normal Saline Inj 900 ML @ 100 mls/hr IV.CONT . Q10H [facility] Rx#:[id number] Rocephin Inj 1,000 MG In NS Inj 100 / 100 100 ML @ 200 mls/hr IV.SIG Q24H [facility]MENZA Rx#:[id number] Oral 0 / 0 Output: Urine 1000 / 1000 Urine Amount (Catheter) 840 / 840 550 / 550 550 / 550 Indwelling Urethral Catheter 840 / 840 550 / 550 550 / 550 Narrative: Exam: Thin elderly white male. He is more alert today. HEENT: Pupils equal, no scleral icterus, mouth without lesions Neck: No JVD Heart: RRR with no murmurs Lungs: Clear Abdomen: Soft, nondistended, no apparent tenderness Extremities: No edema, pulses palpated but diminished Neuro: More alert, moves all extremities - Urinary Catheter Management Indwelling Urethral Catheter Cath placed during this visit: yes Urethral indwelling: Yes Reason for continuing: Acute urinary retention Insertion date: 04/24/18 Assessment and Plan - Assessment (1) End stage renal disease Code(s): N18.6 - End stage renal disease Status: Acute (2) Acute renal failure superimposed on stage 4 chronic kidney disease Code(s): N17.9 - Acute kidney failure, unspecified; N18.4 - Chronic kidney disease, stage 4 (severe) Status: Acute (3) Metabolic encephalopathy Code(s): G93.41 - Metabolic encephalopathy Status: Acute (4) Urinary tract infection Code(s): N39.0 - Urinary tract infection, site not specified Status: Resolved (5) History of colon cancer Code(s): Z85.038 - Personal history of other malignant neoplasm of large intestine Status: Resolved (6) Hyperkalemia Code(s): E87.5 - Hyperkalemia Status: Acute - Plan Patient is doing poorly in has profound azotemia, has metabolic encephalopathy, Solares catheter in place has left hydronephrosis, right kidney atrophy, Continue with hydration has status improved improvement in his renal functions IV fluids changed to D5 W as sodium was high. Will monitor.
[2018-04-26] MEDS: Dorzolamide 2% Opth Drops 10 ML Bottle EACH EYE SCH (22:08)
[2018-04-26] MEDS: Latanoprost 0.005% Opth Drops 2.5 ML Bottle EACH EYE SCH (22:08)
[2018-04-27 07:31] LABS: Baso # (Auto) 0.1 th/mm3 (0.0-0.2); Baso % (Auto) 1.2 % (0.0-2.0); Eos # (Auto) 0.1 th/mm3 (0.0-0.4); Hematocrit 35.1 % (39.0-51.0); Hemoglobin 11.8 gm/dL (13.0-17.0); Lymph # (Auto) 0.8 th/mm3 (1.0-4.8); Lymph % (Auto) 7.9 % (9.0-44.0); Mean Corpuscular HGB Conc 33.7 % (32.0-36.0); Mean Corpuscular Hemoglobin 28.5 pg (27.0-34.0); Mean Corpuscular Volume 84.5 fL (80.0-100.0); Mean Platelet Volume 8.6 fL (7.0-11.0); Mono # (Auto) 0.5 th/mm3 (0.0-0.9); Mono % (Auto) 5.6 % (0.0-8.0); Neut # (Auto) 8.2 th/mm3 (1.8-7.7); Neut % (Auto) 84.3 % (16.0-70.0); Platelet Count 240 th/mm3 (150-450); Red Blood Count 4.15 mil/mm3 (4.50-5.90); Red Cell Distribution Width 14.9 % (11.6-17.2); White Blood Count 9.7 th/mm3 (4.0-11.0)
[2018-04-27 07:35] LABS: Potassium 4.6 meq/L (3.5-5.1)
[2018-04-27 07:44] LABS: Calcium 8.1 mg/dL (8.5-10.1)
[2018-04-27 07:45] LABS: Carbon Dioxide 25.5 meq/L (21.0-32.0)
--- NOTE | 2018-04-27 08:06 | P.PN ---
Subjective Interval history: Patient more responsive and alert. He remembers me from previous hospitalization. He is increasing p.o. intake and appetite is improving. Physical Exam Vital signs: Vital Signs 04/26/18 08:00 04/26/18 12:00 04/26/18 16:00 Temperature 97.6 F 97.0 F L 97.4 F L Pulse Rate 92 H 92 H 85 Respiratory Rate 18 18 18 Blood Pressure 122/65 115/67 118/59 L Pulse Oximetry 95 96 96 04/26/18 20:00 04/27/18 00:00 Temperature 98.3 F 98.5 F Pulse Rate 85 88 Respiratory Rate 18 18 Blood Pressure 102/57 L 104/62 Pulse Oximetry 97 98 Intake & Output 04/26/18 04/27/18 04/27/18 18:59 06:59 18:59 Intake Total 1260 / 1260 1100 / 1100 Output Total 950 / 950 1000 / 1000 Balance 310 / 310 100 / 100 Weight 55.8 kg Intake: IV 780 / 780 1100 / 1100 D5W Inj 1,000 ML @ 84 mls/hr IV 1000 / 1000 .CONT .[id number] CARMENZA Rx#: [id number] Sodium Bicarbonate 8.4% Inj 100 780 / 780 MEQ In 1/2 Normal Saline Inj 900 ML @ 100 mls/hr IV.CONT . Q10H [facility]MENZA Rx#:[id number] Rocephin Inj 1,000 MG In NS Inj 100 / 100 100 ML @ 200 mls/hr IV.SIG Q24H CARMENZA Rx#:[id number] Oral 480 / 480 Output: Urine 300 / 300 Urine Amount (Catheter) 650 / 650 1000 / 1000 Indwelling Urethral Catheter 650 / 650 1000 / 1000 Other: # Bowel Movements 2 Narrative: Exam: Thin elderly white male. He is more alert today. HEENT: Pupils equal, no scleral icterus, mouth without lesions Neck: No JVD Heart: RRR with no murmurs, distant heart sounds noted. Lungs: Clear with diminished breath sounds in the bases. No wheeze or crackle appreciated. Abdomen: Soft, nondistended, no apparent tenderness, no bruit. Extremities: No edema, pulses palpated but diminished in distal lower extremities. Some apparent early flexion contracture in lower extremities. Neuro: More alert, moves all extremities - Urinary Catheter Management Indwelling Urethral Catheter Cath placed during this visit: yes Urethral indwelling: Yes Reason for continuing: Acute urinary retention Insertion date: 04/24/18 Results - Labs CBC & Chem 7: 04/27/18 06:20 04/27/18 06:20 Laboratory Results - last 24 hr 04/24/18 04/26/18 04/27/18 18:33 05:15 06:20 CBC w Diff Auto diff final WBC 9.7 RBC 4.15 L Hgb 11.8 L Hct 35.1 L MCV 84.5 MCH 28.5 MCHC 33.7 RDW 14.9 Plt Count 240 MPV 8.6 Neut % (Auto) 84.3 H Lymph % (Auto) 7.9 L [place] % (Auto) 5.6 Eos % (Auto) 1.0 Baso % (Auto) 1.2 Neut # (Auto) 8.2 H Lymph # (Auto) 0.8 L [place] # (Auto) 0.5 Eos # (Auto) 0.1 Baso # (Auto) 0.1 WBC Differential . Differential Comment . Sodium Potassium Chloride Carbon Dioxide Anion Gap BUN Creatinine Estimated GFR Random Glucose Calcium Lipase 926 H Urine Color Yellow Urine Clarity Turbid H Urine pH 7.5 Ur Specific [place] 1.020 Urine Protein 300 or greater H Urine Glucose (UA) Negative Urine Ketones Negative Urine Occult Blood Urine Nitrate Positive H Urine Bilirubin Negative Urine Urobilinogen 0.2 Ur Leukocyte Esterase Large H Urine RBC 15-50 H Urine WBC Innumerable H Urine WBC Clumps Many H Urine Bacteria Many H Micro UA Comment Cath-culture ind Ur Microscopic Review Microscopic reviewed Urine Culture Comments Cath-cult indicated 04/27/18 06:20 CBC w Diff WBC RBC Hgb Hct MCV MCH MCHC RDW Plt Count MPV Neut % (Auto) Lymph % (Auto) [place] % (Auto) Eos % (Auto) Baso % (Auto) Neut # (Auto) Lymph # (Auto) [place] # (Auto) Eos # (Auto) Baso # (Auto) WBC Differential Differential Comment Sodium 149 H Potassium 4.6 Chloride 115 H Carbon Dioxide 25.5 Anion Gap 9 BUN 107 H Creatinine 5.20 H Estimated GFR 11 L Random Glucose 110 H Calcium 8.1 L Lipase 225 Urine Color Urine Clarity Urine pH Ur Specific [place] Urine Protein Urine Glucose (UA) Urine Ketones Urine Occult Blood Urine Nitrate Urine Bilirubin Urine Urobilinogen Ur Leukocyte Esterase Urine RBC Urine WBC Urine WBC Clumps Urine Bacteria Micro UA Comment Ur Microscopic Review Urine Culture Comments Microbiology 04/24/18 18:33 Catheterized Urine Urine Culture - Preliminary gram negative rods Proteus species Assessment and Plan - Assessment (1) Acute renal failure superimposed on stage 4 chronic kidney disease Code(s): N17.9 - Acute kidney failure, unspecified; N18.4 - Chronic kidney disease, stage 4 (severe) Status: Acute Plan: Renal indices improving. Metabolic encephalopathy improving. Continue current fluids. Appreciate nephrology input. We will encourage p.o. intake. (2) Metabolic acidosis Code(s): E87.2 - Acidosis Status: Acute Plan: Improved with IV fluids and pentecostal of renal function. (3) Metabolic encephalopathy Code(s): G93.41 - Metabolic encephalopathy Status: Acute (4) Hyperkalemia Code(s): E87.5 - Hyperkalemia Status: Acute Plan: Corrected. Continue to follow. (5) Urinary tract infection Code(s): N39.0 - Urinary tract infection, site not specified Status: Resolved Plan: Continue medication. No fevers. (6) Lumbar degenerative disc disease Code(s): M51.36 - Other intervertebral disc degeneration, lumbar region Status : Chronic Plan: Pain seems relatively well controlled currently. We will have physical therapy evaluate patient. (7) Hypermagnesemia Code(s): E83.41 - Hypermagnesemia Status: Acute Plan: Had been improving with renal indices correction. Will recheck tomorrow. (8) Elevated lipase Code(s): R74.8 - Abnormal levels of other serum enzymes Status: Acute Plan: Improved with oral intake. No abdominal pain on palpation. (9) Hypernatremia Code(s): E87.0 - Hyperosmolality and hypernatremia Status: Acute Plan: Improved with IV fluid adjustment. (10) Secondary hyperparathyroidism of renal origin Code(s): N25.81 - Secondary hyperparathyroidism of renal origin Status: Acute Plan: Calcium okay. Continue per nephrology guidelines. - Plan Code Status: DNR Discharge Planning: Hopefully discharge in the next 2 days. Patient at this point is refusing rehab placement as he had done in the past as well. He reports that he has a nurse Link who will be staying with him in the acute phase at home after discharge. Disposition at this point remains to be seen but rehab placement for short-term seems most appropriate presently.
[2018-04-27] MEDS: Dextrose 5% in Water Inj 1,000 ML IV.CONT SCH ×2 (10:41→22:07)
--- NOTE | 2018-04-27 12:21 | P.PNNP ---
Subjective Interval history: Patient is alert, no SOB, started eating better. Physical Exam Vital signs: Vital Signs 04/26/18 16:00 04/26/18 20:00 04/27/18 00:00 Temperature 97.4 F L 98.3 F 98.5 F Pulse Rate 85 85 88 Respiratory Rate 18 18 18 Blood Pressure 118/59 L 102/57 L 104/62 Pulse Oximetry 96 97 98 04/27/18 08:00 Temperature 99.0 F Pulse Rate 73 Respiratory Rate 18 Blood Pressure 123/63 Pulse Oximetry 99 Intake & Output 04/26/18 04/27/18 04/27/18 18:59 06:59 18:59 Intake Total 1260 / 1260 1100 / 1100 1000 / 1000 Output Total 950 / 950 1000 / 1000 Balance 310 / 310 100 / 100 1000 / 1000 Weight 55.8 kg Intake: IV 780 / 780 1100 / 1100 1000 / 1000 D5W Inj 1,000 ML @ 84 mls/hr IV 1000 / 1000 1000 / 1000 .CONT .[id number] CARMENZA Rx#: [id number] Sodium Bicarbonate 8.4% Inj 100 780 / 780 MEQ In 1/2 Normal Saline Inj 900 ML @ 100 mls/hr IV.CONT . Q10H CARMENZA Rx#:[id number] Rocephin Inj 1,000 MG In NS Inj 100 / 100 100 ML @ 200 mls/hr IV.SIG Q24H CARMENZA Rx#:[id number] Oral 480 / 480 Output: Urine 300 / 300 Urine Amount (Catheter) 650 / 650 1000 / 1000 Indwelling Urethral Catheter 650 / 650 1000 / 1000 Other: # Bowel Movements 2 Narrative: GENERAL: Thin elderly male sleeping, arouses to voice. Remains alert with baseline confusion noted. SKIN: Warm and dry. No open wounds noted. HEAD: Atraumatic. Normocephalic. EYES: Pupils equal and round. No scleral icterus. No injection or drainage. ENT: No nasal bleeding or discharge. Mucous membranes pink and moist. NECK: Trachea midline. No JVD. CARDIOVASCULAR: Regular rate and rhythm. No significant murmur appreciated. RESPIRATORY: No accessory muscle use. Clear to auscultation. Breath sounds equal bilaterally. GASTROINTESTINAL: Abdomen soft, non-tender, nondistended. Bowel sounds normal. MUSCULOSKELETAL: Extremities without clubbing, cyanosis, or edema. Flexion contracture lower extremities at knees noted. NEUROLOGICAL: Awake and alert. No obvious cranial nerve deficits. Motor grossly within normal limits with the exception of contractures of lower extremity limiting strength testing. Normal speech. PSYCHIATRIC: Appropriate mood and affect - Urinary Catheter Management Indwelling Urethral Catheter Cath placed during this visit: yes Urethral indwelling: Yes Reason for continuing: Acute urinary retention Insertion date: 04/24/18 Assessment and Plan - Assessment (1) End stage renal disease Code(s): N18.6 - End stage renal disease Status: Acute (2) Acute renal failure superimposed on stage 4 chronic kidney disease Code(s): N17.9 - Acute kidney failure, unspecified; N18.4 - Chronic kidney disease, stage 4 (severe) Status: Acute (3) Metabolic encephalopathy Code(s): G93.41 - Metabolic encephalopathy Status: Acute (4) Urinary tract infection Code(s): N39.0 - Urinary tract infection, site not specified Status: Resolved (5) History of colon cancer Code(s): Z85.038 - Personal history of other malignant neoplasm of large intestine Status: Resolved (6) Hyperkalemia Code(s): E87.5 - Hyperkalemia Status: Acute - Plan (2) Acute renal failure superimposed on stage 4 chronic kidney disease Code(s): N17.9 - Acute kidney failure, unspecified; N18.4 - Chronic kidney disease, stage 4 (severe) Status: Acute (3) Metabolic encephalopathy Code(s): G93.41 - Metabolic encephalopathy Status: Acute (4) Urinary tract infection Code(s): N39.0 - Urinary tract infection, site not specified Status: Resolved (5) History of colon cancer Code(s): Z85.038 - Personal history of other malignant neoplasm of large intestine Status: Resolved (6) Hyperkalemia Code(s): E87.5 - Hyperkalemia Patient has been non oliguric. K is now normal, Creatinine improving and sodium is better. Continue IVF, Follow the urine out put and BMP.
[2018-04-27] MEDS: Dorzolamide 2% Opth Drops 10 ML Bottle EACH EYE SCH (22:11)
[2018-04-27] MEDS: Latanoprost 0.005% Opth Drops 2.5 ML Bottle EACH EYE SCH (22:13)
--- NOTE | 2018-04-28 06:42 | P.PN ---
Subjective Interval history: Relatively stable. Mentation has stabilized. he does have some baseline confusion about how many days he has been in the hospital and seems to vacillate as to his capacity to ambulate with assist at home. He is still opposed to any rehab placement. Physical Exam Vital signs: Vital Signs 04/27/18 08:00 04/27/18 12:00 04/27/18 16:00 Temperature 99.0 F 98.4 F 97.8 F Pulse Rate 73 100 H 104 H Respiratory Rate 18 18 18 Blood Pressure 123/63 118/73 127/57 L Pulse Oximetry 99 100 100 04/27/18 20:00 04/27/18 22:01 04/28/18 00:00 Temperature 97.8 F 97.5 F L Pulse Rate 96 H 100 H Respiratory Rate 18 18 18 Blood Pressure 90/57 L 120/81 130/72 Pulse Oximetry 95 94 L Intake & Output 04/27/18 04/27/18 04/28/18 06:59 18:59 06:59 Intake Total 1100 / 1100 1240 / 1240 1500 / 1500 Output Total 1000 / 1000 1000 / 1000 1200 / 1200 Balance 100 / 100 240 / 240 300 / 300 Weight 55.8 kg 55.7 kg Intake: IV 1100 / 1100 1000 / 1000 1500 / 1500 D5W Inj 1,000 ML @ 84 mls/hr IV 1000 / 1000 1000 / 1000 1400 / 1400 .CONT .[id number] [facility] Rx#: [id number] Rocephin Inj 1,000 MG In NS Inj 100 / 100 100 / 100 100 ML @ 200 mls/hr IV.SIG Q24H [facility] Rx#:[id number] Oral 240 / 240 0 / 0 Output: Urine 1200 / 1200 Urine Amount (Catheter) 1000 / 1000 1000 / 1000 Indwelling Urethral Catheter 1000 / 1000 1000 / 1000 Narrative: Exam: Thin elderly white male. Continues to be more alert. Some baseline confusion noted. HEENT: Pupils equal, no scleral icterus, mouth without lesions Neck: No JVD Heart: RRR with no murmurs, distant heart sounds noted. Lungs: Clear with diminished breath sounds in the bases. No wheeze or crackle appreciated. Abdomen: Soft, nondistended, no apparent tenderness, no bruit. Extremities: No edema, pulses palpated but diminished in distal lower extremities. Some apparent flexion contracture in lower extremities which impair his capacity to ambulate. Some tenderness to palpation distal lower extremities noted but no increased warmth or evidence of apparent cellulitis. Neuro: More alert, moves all extremities - Urinary Catheter Management Indwelling Urethral Catheter Cath placed during this visit: yes Urethral indwelling: Yes Reason for continuing: Chronic Urinary Retention Insertion date: 04/24/18 Results - Labs CBC & Chem 7: 04/27/18 06:20 04/27/18 06:20 Laboratory Results - last 24 hr 04/27/18 04/27/18 06:20 06:20 CBC w Diff Auto diff final WBC 9.7 RBC 4.15 L Hgb 11.8 L Hct 35.1 L MCV 84.5 MCH 28.5 MCHC 33.7 RDW 14.9 Plt Count 240 MPV 8.6 Neut % (Auto) 84.3 H Lymph % (Auto) 7.9 L [place] % (Auto) 5.6 Eos % (Auto) 1.0 Baso % (Auto) 1.2 Neut # (Auto) 8.2 H Lymph # (Auto) 0.8 L [place] # (Auto) 0.5 Eos # (Auto) 0.1 Baso # (Auto) 0.1 WBC Differential . Differential Comment . Sodium 149 H Potassium 4.6 Chloride 115 H Carbon Dioxide 25.5 Anion Gap 9 BUN 107 H Creatinine 5.20 H Estimated GFR 11 L Random Glucose 110 H Calcium 8.1 L Lipase 225 Microbiology 04/24/18 18:33 Catheterized Urine Urine Culture - Final Proteus mirabilis Assessment and Plan - Assessment (1) Acute renal failure superimposed on stage 4 chronic kidney disease Code(s): N17.9 - Acute kidney failure, unspecified; N18.4 - Chronic kidney disease, stage 4 (severe) Status: Acute Plan: Renal indices have been improving. Fair urine output. Metabolic encephalopathy improving. Continue current fluids. Appreciate nephrology input. We will encourage p.o. intake. (2) Metabolic acidosis Code(s): E87.2 - Acidosis Status: Acute Plan: Improved with IV fluids and baptism of renal function. (3) Metabolic encephalopathy Code(s): G93.41 - Metabolic encephalopathy Status: Acute (4) Hyperkalemia Code(s): E87.5 - Hyperkalemia Status: Acute Plan: Corrected. Continue to follow. (5) Urinary tract infection Code(s): N39.0 - Urinary tract infection, site not specified Status: Resolved Plan: Continue medication. No fevers. Culture and sensitivities are reviewed. Will likely convert to Augmentin at discharge (6) Lumbar degenerative disc disease Code(s): M51.36 - Other intervertebral disc degeneration, lumbar region Status : Chronic Plan: Pain seems relatively well controlled currently. Physical therapy note reviewed and much appreciated. (7) Hypermagnesemia Code(s): E83.41 - Hypermagnesemia Status: Acute Plan: Had been improving with renal indices correction. Labs pending. (8) Elevated lipase Code(s): R74.8 - Abnormal levels of other serum enzymes Status: Acute Plan: Improved with oral intake. No abdominal pain on palpation. (9) Hypernatremia Code(s): E87.0 - Hyperosmolality and hypernatremia Status: Acute Plan: Improved with IV fluid adjustment. (10) Secondary hyperparathyroidism of renal origin Code(s): N25.81 - Secondary hyperparathyroidism of renal origin Status: Acute Plan: Calcium okay. Continue per nephrology guidelines. - Plan Discharge Planning: Hopefully discharge in the next 2 days. Patient at this point is refusing rehab placement as he had done in the past as well. He reports that he has a nurse Link who will be staying with him in the acute phase at home after discharge. Final disposition at this point remains to be seen but rehab placement for short-term seems most appropriate presently.
[2018-04-28] MEDS: Enoxaparin Inj 30 MG/0.3 ML Syringe SQ SCH (08:04)
[2018-04-28 08:21] LABS: Calcium 8.2 mg/dL (8.5-10.1); Carbon Dioxide 25.3 meq/L (21.0-32.0); Magnesium 2.1 mg/dL (1.5-2.5); Potassium 3.5 meq/L (3.5-5.1)
--- NOTE | 2018-04-28 09:53 | P.PNNP ---
Subjective Interval history: No acute events overnight. Alert not oriented. Denies any shortness of breath , chest pain, nausea, or vomiting. Creatinine improving at 4.10. Hypernatremia improving at 146. <Kristina Shah - Last Filed: 04/28/18 09:44> Physical Exam Vital signs: Vital Signs 04/27/18 12:00 04/27/18 16:00 04/27/18 20:00 Temperature 98.4 F 97.8 F 97.8 F Pulse Rate 100 H 104 H 96 H Respiratory Rate 18 Blood Pressure 118/73 127/57 L 90/57 L Pulse Oximetry 100 100 95 04/27/18 22:01 04/28/18 00:00 04/28/18 08:00 Temperature 97.5 F L 99.7 F H Pulse Rate 100 H 96 H Respiratory Rate 18 Blood Pressure 120/81 130/72 115/59 L Pulse Oximetry 94 L 96 Intake & Output 04/27/18 04/28/18 04/28/18 18:59 06:59 18:59 Intake Total 1240 / 1240 1500 / 1500 Output Total 1000 / 1000 1200 / 1200 Balance 240 / 240 300 / 300 Weight 55.7 kg Intake: IV 1000 / 1000 1500 / 1500 D5W Inj 1,000 ML @ 84 mls/hr IV 1000 / 1000 1400 / 1400 .CONT .[id number] [facility] Rx#: [id number] Rocephin Inj 1,000 MG In NS Inj 100 / 100 100 ML @ 200 mls/hr IV.SIG Q24H [facility] Rx#:[id number] Oral 240 / 240 0 / 0 Output: Urine 1200 / 1200 Urine Amount (Catheter) 1000 / 1000 Indwelling Urethral Catheter 1000 / 1000 Narrative: General: Alert, no oriented. Pleasant HEENT: Pupils equal, no scleral icterus, mouth without lesions Neck: Supple, No JVD Heart: RRR with no murmurs, distant heart sounds noted. Lungs: Clear with diminished breath sounds in the bases. No wheeze or crackle appreciated. Abdomen: Soft, nondistended, no apparent tenderness, no bruit. Extremities: No edema, pulses palpated but diminished in distal lower extremities. Neuro: More alert, moves all extremities - Urinary Catheter Management Indwelling Urethral Catheter Cath placed during this visit: yes Urethral indwelling: Yes Reason for continuing: Chronic Urinary Retention Insertion date: 04/24/18 <Kristina Shah - Last Filed: 04/28/18 09:44> Vital signs: Vital Signs 04/29/18 16:00 04/29/18 20:00 04/30/18 00:00 Temperature 97.3 F L 98.4 F 97.7 F Pulse Rate 90 88 87 Respiratory Rate 20 18 18 Blood Pressure 98/62 L 116/77 131/65 Pulse Oximetry 97 96 98 04/30/18 08:00 Temperature 97.8 F Pulse Rate 83 Respiratory Rate Blood Pressure 118/68 Pulse Oximetry Intake & Output 04/29/18 04/30/18 04/30/18 18:59 06:59 18:59 Intake Total 400 / 400 1100 / 1100 1000 / 1000 Output Total 800 / 800 Balance -400 / -400 1100 / 1100 1000 / 1000 Intake: IV 400 / 400 1100 / 1100 1000 / 1000 D5W Inj 1,000 ML @ 84 mls/hr IV 400 / 400 .CONT .[id number] [facility] Rx#: [id number] 1/2 Normal Saline Inj 1,000 ML 1000 / 1000 1000 / 1000 @ 84 mls/hr IV.CONT .[id number] [facility] Rx#:[id number] Rocephin Inj 1,000 MG In NS Inj 100 / 100 100 ML @ 200 mls/hr IV.SIG Q24H [facility] Rx#:[id number] Oral 0 / 0 Output: Urine Amount (Catheter) 800 / 800 Indwelling Urethral Catheter 800 / 800 Other: Date of Last Bowel Movement 04/27/18 04/29/18 - Urinary Catheter Management Indwelling Urethral Catheter Cath placed during this visit: no <Chely Salgado - Last Filed: 04/30/18 15:25> Assessment and Plan - Assessment (1) End stage renal disease Code(s): N18.6 - End stage renal disease Status: Acute (2) Acute renal failure superimposed on stage 4 chronic kidney disease Code(s): N17.9 - Acute kidney failure, unspecified; N18.4 - Chronic kidney disease, stage 4 (severe) Status: Acute (3) Metabolic encephalopathy Code(s): G93.41 - Metabolic encephalopathy Status: Acute (4) Urinary tract infection Code(s): N39.0 - Urinary tract infection, site not specified Status: Resolved (5) History of colon cancer Code(s): Z85.038 - Personal history of other malignant neoplasm of large intestine Status: Resolved (6) Hyperkalemia Code(s): E87.5 - Hyperkalemia Status: Acute - Plan Acute kidney injury in profound azotemia, has metabolic encephalopathy Creatinine at 4.10 today and urinary output improving. Plan Continue indwelling Solares catheter had left hydronephrosis, right kidney atrophy , Continue IVF's, creatinine and hypernatremia improving. Continue antibiotics for UTI Avoid nephrotoxins as possible Will follow urinary output and BMP <Kristina Shah - Last Filed: 04/28/18 09:44> - Assessment (1) End stage renal disease Code(s): N18.6 - End stage renal disease Status: Acute (2) Acute renal failure superimposed on stage 4 chronic kidney disease Code(s): N17.9 - Acute kidney failure, unspecified; N18.4 - Chronic kidney disease, stage 4 (severe) Status: Acute (3) Metabolic encephalopathy Code(s): G93.41 - Metabolic encephalopathy Status: Acute (4) Urinary tract infection Code(s): N39.0 - Urinary tract infection, site not specified Status: Resolved (5) History of colon cancer Code(s): Z85.038 - Personal history of other malignant neoplasm of large intestine Status: Resolved (6) Hyperkalemia Code(s): E87.5 - Hyperkalemia Status: Acute - Plan Patient seen and examined, agree with above. Creatinine continue to improve. Continue IVF and antibiotics. <Chely Salgado - Last Filed: 04/30/18 15:25>
[2018-04-28] MEDS: Dextrose 5% in Water Inj 1,000 ML IV.CONT SCH ×2 (10:45→22:55)
[2018-04-28] MEDS: Latanoprost 0.005% Opth Drops 2.5 ML Bottle EACH EYE SCH (20:48)
[2018-04-28] MEDS: Dorzolamide 2% Opth Drops 10 ML Bottle EACH EYE SCH (20:48)
[2018-04-29 06:37] LABS: Baso # (Auto) 0.3 th/mm3 (0.0-0.2); Baso % (Auto) 2.1 % (0.0-2.0); Eos # (Auto) 0.1 th/mm3 (0.0-0.4); Eos % (Auto) 0.9 % (0.0-4.0); Hematocrit 35.7 % (39.0-51.0); Lymph # (Auto) 0.6 th/mm3 (1.0-4.8); Lymph % (Auto) 4.7 % (9.0-44.0); Mean Corpuscular HGB Conc 33.5 % (32.0-36.0); Mean Corpuscular Hemoglobin 29.1 pg (27.0-34.0); Mean Corpuscular Volume 86.9 fL (80.0-100.0); Mean Platelet Volume 8.4 fL (7.0-11.0); Mono # (Auto) 0.4 th/mm3 (0.0-0.9); Mono % (Auto) 3.4 % (0.0-8.0); Neut % (Auto) 88.9 % (16.0-70.0); Platelet Count 191 th/mm3 (150-450); Red Blood Count 4.11 mil/mm3 (4.50-5.90); Red Cell Distribution Width 14.3 % (11.6-17.2); White Blood Count 12.4 th/mm3 (4.0-11.0)
[2018-04-29 06:48] LABS: Potassium 3.4 meq/L (3.5-5.1)
[2018-04-29 06:54] LABS: Albumin 2.2 g/dL (3.4-5.0); Calcium 7.9 mg/dL (8.5-10.1)
[2018-04-29 06:55] LABS: Carbon Dioxide 22.2 meq/L (21.0-32.0)
[2018-04-29 07:00] LABS: Phosphorus 2.8 mg/dL (2.5-4.9)
--- NOTE | 2018-04-29 07:31 | P.PN ---
Subjective Interval history: Relatively stable. No new complaints. Patient claims that he has been walking with a walker however nurses do not corroborate such report and he is still somewhat contracted in his lower extremities. Physical Exam Vital signs: Vital Signs 04/28/18 08:00 04/28/18 12:00 04/28/18 16:00 Temperature 99.7 F H 98.5 F 98.7 F Pulse Rate 96 H 92 H 103 H Respiratory Rate 16 18 18 Blood Pressure 115/59 L 117/55 L 93/57 L Pulse Oximetry 96 96 95 04/28/18 20:00 04/29/18 00:00 Temperature 98.5 F 96.4 F L Pulse Rate 93 H 69 Respiratory Rate 20 20 Blood Pressure 98/63 L 92/62 L Pulse Oximetry 97 97 Intake & Output 04/28/18 04/29/18 04/29/18 18:59 06:59 18:59 Intake Total 620 / 620 1760 / 1760 Output Total 375 / 375 Balance 620 / 620 1385 / 1385 Weight 57.9 kg Intake: IV 500 / 500 1700 / 1700 D5W Inj 1,000 ML @ 84 mls/hr IV 500 / 500 1600 / 1600 .CONT .[id number] [facility] Rx#: [id number] Rocephin Inj 1,000 MG In NS Inj 100 / 100 100 ML @ 200 mls/hr IV.SIG Q24H [facility] Rx#:[id number] Oral 120 / 120 60 / 60 Output: Urine 375 / 375 Other: Date of Last Bowel Movement 04/27/18 Narrative: GENERAL: Thin elderly male sleeping, arouses to voice. Alert baseline confusion noted. SKIN: Warm and dry. No open wounds noted. HEAD: Atraumatic. Normocephalic. EYES: Pupils equal and round. No scleral icterus. No injection or drainage. ENT: No nasal bleeding or discharge. Mucous membranes pink and moist. NECK: Trachea midline. No JVD. CARDIOVASCULAR: Regular rate and rhythm. No significant murmur appreciated. RESPIRATORY: No accessory muscle use. Clear to auscultation. Breath sounds equal bilaterally. GASTROINTESTINAL: Abdomen soft, non-tender, nondistended. Hepatic and splenic margins not palpable. MUSCULOSKELETAL: Extremities without clubbing, cyanosis, or edema. Flexion contracture lower extremities noted. NEUROLOGICAL: Awake and alert. No obvious cranial nerve deficits. Motor grossly within normal limits with the exception of contractures of lower extremity limiting strength testing. Normal speech. PSYCHIATRIC: Appropriate mood and affect - Urinary Catheter Management Indwelling Urethral Catheter Cath placed during this visit: yes Urethral indwelling: Yes Reason for continuing: Acute urinary retention Insertion date: 04/24/18 Results - Labs CBC & Chem 7: 04/29/18 05:30 04/29/18 05:30 Laboratory Results - last 24 hr 04/28/18 04/29/18 04/29/18 06:55 05:30 05:30 CBC w Diff Auto diff final WBC 12.4 H RBC 4.11 L Hgb 12.0 L Hct 35.7 L MCV 86.9 MCH 29.1 MCHC 33.5 RDW 14.3 Plt Count 191 MPV 8.4 Neut % (Auto) 88.9 H Lymph % (Auto) 4.7 L [place] % (Auto) 3.4 Eos % (Auto) 0.9 Baso % (Auto) 2.1 H Neut # (Auto) 11.0 H Lymph # (Auto) 0.6 L [place] # (Auto) 0.4 Eos # (Auto) 0.1 Baso # (Auto) 0.3 H WBC Differential . Differential Comment . Sodium 146 H 141 Potassium 3.5 D 3.4 L Chloride 109 H 106 Carbon Dioxide 25.3 22.2 Anion Gap 12 13 BUN 78 H 63 H Creatinine 4.10 H 3.50 H Estimated GFR 14 L 17 L Random Glucose 116 H 143 H Calcium 8.2 L 7.9 L Phosphorus 3.0 2.8 Magnesium 2.1 Albumin 2.2 L Assessment and Plan - Assessment (1) Acute renal failure superimposed on stage 4 chronic kidney disease Code(s): N17.9 - ; N18.4 - Status: Acute Plan: Renal indices have been improving and are now approaching his baseline GFR. Fair urine output. Metabolic encephalopathy improved and mentation appears back to baseline. Convert IV fluids to half-normal saline given his rising sugar level and falling potassium. Appreciate nephrology input. We will encourage p.o. intake. (2) Metabolic acidosis Code(s): E87.2 - Status: Acute Plan: Improved with IV fluids and amish of renal function. (3) Metabolic encephalopathy Code(s): G93.41 - Status: Acute (4) Hyperkalemia Code(s): E87.5 - Status: Acute Plan: Corrected. Continue to follow. Modify IV fluids as noted. (5) Urinary tract infection Code(s): N39.0 - Status: Resolved Plan: Continue medication. No fevers. Culture and sensitivities are reviewed. Will likely convert to Augmentin at discharge. Repeat UA. (6) Lumbar degenerative disc disease Code(s): M51.36 - Status: Chronic Plan: Pain seems relatively well controlled currently. Physical therapy note reviewed and much appreciated. (7) Hypermagnesemia Code(s): E83.41 - Status: Acute Plan: Improved with IV fluid and GFR amish. (8) Elevated lipase Code(s): R74.8 - Status: Acute Plan: Improved with oral intake. No abdominal pain on palpation. Resolved. (9) Hypernatremia Code(s): E87.0 - Status: Acute Plan: Improved with IV fluid adjustment. (10) Secondary hyperparathyroidism of renal origin Code(s): N25.81 - Status: Acute Plan: Calcium okay. Continue per nephrology guidelines. - Plan Discharge Planning: Hopefully discharge in the next 1-2 days. Patient at this point is still refusing rehab placement as he had done in the past as well. He reports that he has a nurse Link who will be staying with him in the acute phase at home after discharge. Final disposition at this point remains to be seen but rehab placement for short-term seems most appropriate presently.
[2018-04-29] MEDS: Sodium Chloride 0.45 % Inj 1,000 ML IV.CONT SCH ×2 (09:27→23:25)
[2018-04-29] MEDS: Enoxaparin Inj 30 MG/0.3 ML Syringe SQ SCH (09:27)
--- NOTE | 2018-04-29 17:53 | P.PNNP ---
Subjective Interval history: awake more alert Physical Exam Vital signs: Vital Signs 04/28/18 20:00 04/29/18 00:00 04/29/18 08:00 Temperature 98.5 F 96.4 F L 97.6 F Pulse Rate 93 H 69 93 H Respiratory Rate 20 20 20 Blood Pressure 98/63 L 92/62 L 133/72 Pulse Oximetry 97 97 90 L 04/29/18 12:00 04/29/18 16:00 Temperature 96.4 F L 97.3 F L Pulse Rate 87 90 Respiratory Rate 20 20 Blood Pressure 125/72 98/62 L Pulse Oximetry 96 97 Intake & Output 04/28/18 04/29/18 04/29/18 18:59 06:59 18:59 Intake Total 620 / 620 1760 / 1760 400 / 400 Output Total 375 / 375 Balance 620 / 620 1385 / 1385 400 / 400 Weight 57.9 kg Intake: IV 500 / 500 1700 / 1700 400 / 400 D5W Inj 1,000 ML @ 84 mls/hr IV 500 / 500 1600 / 1600 400 / 400 .CONT .[id number] [facility] Rx#: [id number] Rocephin Inj 1,000 MG In NS Inj 100 / 100 100 ML @ 200 mls/hr IV.SIG Q24H [facility] Rx#:[id number] Oral 120 / 120 60 / 60 Output: Urine 375 / 375 Other: Date of Last Bowel Movement 04/27/18 04/27/18 Narrative: GENERAL: Thin elderly male sleeping, arouses to voice. Alert baseline confusion noted. SKIN: Warm and dry. No open wounds noted. HEAD: Atraumatic. Normocephalic. EYES: Pupils equal and round. No scleral icterus. No injection or drainage. ENT: No nasal bleeding or discharge. Mucous membranes pink and moist. NECK: Trachea midline. No JVD. CARDIOVASCULAR: Regular rate and rhythm. No significant murmur appreciated. RESPIRATORY: No accessory muscle use. Clear to auscultation. Breath sounds equal bilaterally. GASTROINTESTINAL: Abdomen soft, non-tender, nondistended. Hepatic and splenic margins not palpable. MUSCULOSKELETAL: Extremities without clubbing, cyanosis, or edema. Flexion contracture lower extremities noted. NEUROLOGICAL: Awake and alert. No obvious cranial nerve deficits. Motor grossly within normal limits with the exception of contractures of lower extremity limiting strength testing. Normal speech. PSYCHIATRIC: Appropriate mood and affect - Urinary Catheter Management Indwelling Urethral Catheter Cath placed during this visit: yes Urethral indwelling: Yes Reason for continuing: Acute urinary retention Insertion date: 04/24/18 Assessment and Plan - Assessment (1) End stage renal disease Code(s): N18.6 - End stage renal disease Status: Acute (2) Acute renal failure superimposed on stage 4 chronic kidney disease Code(s): N17.9 - Acute kidney failure, unspecified; N18.4 - Chronic kidney disease, stage 4 (severe) Status: Acute (3) Metabolic encephalopathy Code(s): G93.41 - Metabolic encephalopathy Status: Acute (4) Urinary tract infection Code(s): N39.0 - Urinary tract infection, site not specified Status: Resolved (5) History of colon cancer Code(s): Z85.038 - Personal history of other malignant neoplasm of large intestine Status: Resolved (6) Hyperkalemia Code(s): E87.5 - Hyperkalemia Status: Acute - Plan Acute kidney injury in profound azotemia, has metabolic encephalopathy Creatinine at 3.5 today and urinary output improving. Plan Continue indwelling Solares catheter had left hydronephrosis, right kidney atrophy , Continue IVF's, creatinine and hypernatremia improving. Continue antibiotics for UTI Avoid nephrotoxins as possible replace K at baseline, he refused hemodialysis, will follow as needed
[2018-04-29] MEDS ORDERED: Potassium Bicarbonate 25 MEQ Effervescent Tablet PO ONE (18:30)
[2018-04-29] MEDS: Latanoprost 0.005% Opth Drops 2.5 ML Bottle EACH EYE SCH (20:55)
[2018-04-29] MEDS: Dorzolamide 2% Opth Drops 10 ML Bottle EACH EYE SCH (20:55)
--- NOTE | 2018-04-30 06:55 | P.PN ---
Subjective Interval history: Overall stable. Patient has been trying to stretch his lower extremities more. He is excited about the possibility of having hospice at home as he is still vehemently opposed to rehab placement. Physical Exam Vital signs: Vital Signs 04/29/18 08:00 04/29/18 12:00 04/29/18 16:00 Temperature 97.6 F 96.4 F L 97.3 F L Pulse Rate 93 H 87 90 Respiratory Rate 20 20 20 Blood Pressure 133/72 125/72 98/62 L Pulse Oximetry 90 L 96 97 04/29/18 20:00 04/30/18 00:00 Temperature 98.4 F 97.7 F Pulse Rate 88 87 Respiratory Rate 18 18 Blood Pressure 116/77 131/65 Pulse Oximetry 96 98 Intake & Output 04/29/18 04/29/18 04/30/18 06:59 18:59 06:59 Intake Total 1760 / 1760 400 / 400 1100 / 1100 Output Total 375 / 375 800 / 800 Balance 1385 / 1385 -400 / -400 1100 / 1100 Weight 57.9 kg Intake: IV 1700 / 1700 400 / 400 1100 / 1100 D5W Inj 1,000 ML @ 84 mls/hr IV 1600 / 1600 400 / 400 .CONT .[id number] [facility] Rx#: [id number] 1/2 Normal Saline Inj 1,000 ML 1000 / 1000 @ 84 mls/hr IV.CONT .[id number] [facility] Rx#:[id number] Rocephin Inj 1,000 MG In NS Inj 100 / 100 100 / 100 100 ML @ 200 mls/hr IV.SIG Q24H [facility] Rx#:[id number] Oral 60 / 60 0 / 0 Output: Urine 375 / 375 Urine Amount (Catheter) 800 / 800 Indwelling Urethral Catheter 800 / 800 Other: Date of Last Bowel Movement 04/27/18 04/27/18 04/29/18 Narrative: GENERAL: Thin elderly male sleeping, arouses to voice. Remains alert with baseline confusion noted. SKIN: Warm and dry. No open wounds noted. HEAD: Atraumatic. Normocephalic. EYES: Pupils equal and round. No scleral icterus. No injection or drainage. ENT: No nasal bleeding or discharge. Mucous membranes pink and moist. NECK: Trachea midline. No JVD. CARDIOVASCULAR: Regular rate and rhythm. No significant murmur appreciated. RESPIRATORY: No accessory muscle use. Clear to auscultation. Breath sounds equal bilaterally. GASTROINTESTINAL: Abdomen soft, non-tender, nondistended. Bowel sounds normal. MUSCULOSKELETAL: Extremities without clubbing, cyanosis, or edema. Flexion contracture lower extremities at knees noted. NEUROLOGICAL: Awake and alert. No obvious cranial nerve deficits. Motor grossly within normal limits with the exception of contractures of lower extremity limiting strength testing. Normal speech. PSYCHIATRIC: Appropriate mood and affect - Urinary Catheter Management Indwelling Urethral Catheter Cath placed during this visit: yes Urethral indwelling: Yes Reason for continuing: Chronic Urinary Retention Insertion date: 04/24/18 Results - Labs CBC & Chem 7: 04/29/18 05:30 04/29/18 05:30 Laboratory Results - last 24 hr 04/29/18 05:30 Carbon Dioxide 22.2 Anion Gap 13 BUN 63 H Creatinine 3.50 H Estimated GFR 17 L Random Glucose 143 H Calcium 7.9 L Phosphorus 2.8 Albumin 2.2 L Assessment and Plan - Assessment (1) Acute renal failure superimposed on stage 4 chronic kidney disease Code(s): N17.9 - Acute kidney failure, unspecified; N18.4 - Chronic kidney disease, stage 4 (severe) Status: Acute Plan: Renal indices have been improving and are near his baseline GFR. Fair urine output. Metabolic encephalopathy improved and mentation appears back to baseline. Converted IV fluids to half-normal saline given his rising sugar level and falling potassium. Appreciate nephrology input. We will encourage p.o. intake. (2) Metabolic acidosis Code(s): E87.2 - Acidosis Status: Acute Plan: Improved with IV fluids and congregation of renal function. (3) Metabolic encephalopathy Code(s): G93.41 - Metabolic encephalopathy Status: Acute (4) Hyperkalemia Code(s): E87.5 - Hyperkalemia Status: Acute Plan: Corrected. Continue to follow. Modify IV fluids as appropriate. (5) Urinary tract infection Code(s): N39.0 - Urinary tract infection, site not specified Status: Resolved Plan: Continue medication. No fevers. Culture and sensitivities are reviewed. Will likely convert to Augmentin at discharge. Repeat UA. (6) Lumbar degenerative disc disease Code(s): M51.36 - Other intervertebral disc degeneration, lumbar region Status : Chronic Plan: Pain seems relatively well controlled currently. Physical therapy note reviewed and much appreciated. (7) Hypermagnesemia Code(s): E83.41 - Hypermagnesemia Status: Acute Plan: Improved with IV fluid and GFR congregation. (8) Elevated lipase Code(s): R74.8 - Abnormal levels of other serum enzymes Status: Acute Plan: Improved with oral intake. No abdominal pain on palpation. Resolved. (9) Hypernatremia Code(s): E87.0 - Hyperosmolality and hypernatremia Status: Acute Plan: Improved with IV fluid adjustment. (10) Secondary hyperparathyroidism of renal origin Code(s): N25.81 - Secondary hyperparathyroidism of renal origin Status: Acute Plan: Calcium okay. Continue per nephrology guidelines. - Plan Discharge Planning: Hopefully discharge in the next 1-2 days. Patient still vehemently opposed to rehab placement. On attempting to arrange discharge to home with hospice. Hospice reportedly evaluated patient yesterday but I do not see a note on the chart. Patient will not sign any form without his caregiver, Parviz being present. I spoke with Parviz yesterday and she is agreeable and supportive of hospice at home for him.
[2018-04-30 07:07] LABS: Baso % (Auto) 0.2 % (0.0-2.0); Eos # (Auto) 0.3 th/mm3 (0.0-0.4); Eos % (Auto) 2.6 % (0.0-4.0); Hematocrit 34.6 % (39.0-51.0); Hemoglobin 11.4 gm/dL (13.0-17.0); Lymph # (Auto) 0.7 th/mm3 (1.0-4.8); Mean Corpuscular HGB Conc 32.8 % (32.0-36.0); Mean Corpuscular Hemoglobin 28.5 pg (27.0-34.0); Mean Corpuscular Volume 86.8 fL (80.0-100.0); Mean Platelet Volume 8.5 fL (7.0-11.0); Mono # (Auto) 0.4 th/mm3 (0.0-0.9); Mono % (Auto) 4.3 % (0.0-8.0); Neut # (Auto) 8.4 th/mm3 (1.8-7.7); Neut % (Auto) 85.9 % (16.0-70.0); Platelet Count 212 th/mm3 (150-450); Red Blood Count 3.99 mil/mm3 (4.50-5.90); Red Cell Distribution Width 13.9 % (11.6-17.2); White Blood Count 9.8 th/mm3 (4.0-11.0)
[2018-04-30 07:20] LABS: Potassium 3.7 meq/L (3.5-5.1)
[2018-04-30 07:21] LABS: Bilirubin,Urine Negative (Negative); Color,Urine Yellow (Yellw/Straw); Glucose,Urine (UA) Negative (Negative); Leukocyte Esterase,Urine Large (Negative); Nitrite,Urine Negative (Negative); Urobilinogen,Urine 0.2 mg/dL (Less than 2)
[2018-04-30 07:31] LABS: Clarity,Urine Cloudy (Clear)
[2018-04-30 07:32] LABS: Bacteria,Urine Moderate /hpf; WBC,Urine 51-189 /hpf (0-5)
[2018-04-30 07:33] LABS: Calcium 7.9 mg/dL (8.5-10.1)
[2018-04-30 07:34] LABS: Carbon Dioxide 24.1 meq/L (21.0-32.0)
[2018-04-30] MEDS: Sodium Chloride 0.45 % Inj 1,000 ML IV.CONT SCH ×2 (08:28→18:41)
[2018-04-30] MEDS: Enoxaparin Inj 30 MG/0.3 ML Syringe SQ SCH (08:30)
[2018-04-30] MEDS: Megestrol Acetate Liq 400 MG/10 ML UDC PO SCH (08:31)
--- NOTE | 2018-04-30 19:38 | P.PNNP ---
Subjective Interval history: Is alert Physical Exam Vital signs: Vital Signs 04/29/18 20:00 04/30/18 00:00 04/30/18 08:00 Temperature 98.4 F 97.7 F 97.8 F Pulse Rate 88 87 83 Respiratory Rate 18 18 Blood Pressure 116/77 131/65 118/68 Pulse Oximetry 96 98 04/30/18 18:58 Temperature 98.9 F Pulse Rate 91 H Respiratory Rate 18 Blood Pressure 109/62 Pulse Oximetry 92 L Intake & Output 04/30/18 04/30/18 05/01/18 06:59 18:59 06:59 Intake Total 1100 / 1100 1900 / 1900 Output Total 801 / 801 Balance 1100 / 1100 1099 / 1099 Intake: IV 1100 / 1100 1900 / 1900 1/2 Normal Saline Inj 1,000 ML 1000 / 1000 1900 / 1900 @ 84 mls/hr IV.CONT .[id number] [facility] Rx#:[id number] Rocephin Inj 1,000 MG In NS Inj 100 / 100 100 ML @ 200 mls/hr IV.SIG Q24H [facility] Rx#:[id number] Output: Stool 1 / 1 Urine Amount (Catheter) 800 / 800 Indwelling Urethral Catheter 800 / 800 Other: Date of Last Bowel Movement 04/29/18 04/30/18 Narrative: GENERAL: Thin elderly male sleeping, arouses to voice. Remains alert with baseline confusion noted. SKIN: Warm and dry. No open wounds noted. HEAD: Atraumatic. Normocephalic. EYES: Pupils equal and round. No scleral icterus. No injection or drainage. ENT: No nasal bleeding or discharge. Mucous membranes pink and moist. NECK: Trachea midline. No JVD. CARDIOVASCULAR: Regular rate and rhythm. No significant murmur appreciated. RESPIRATORY: No accessory muscle use. Clear to auscultation. Breath sounds equal bilaterally. GASTROINTESTINAL: Abdomen soft, non-tender, nondistended. Bowel sounds normal. MUSCULOSKELETAL: Extremities without clubbing, cyanosis, or edema. Flexion contracture lower extremities at knees noted. NEUROLOGICAL: Awake and alert. No obvious cranial nerve deficits. Motor grossly within normal limits with the exception of contractures of lower extremity limiting strength testing. Normal speech. PSYCHIATRIC: Appropriate mood and affect - Urinary Catheter Management Indwelling Urethral Catheter Cath placed during this visit: yes Urethral indwelling: Yes Reason for continuing: Acute urinary retention Insertion date: 04/24/18 Assessment and Plan - Assessment (1) End stage renal disease Code(s): N18.6 - End stage renal disease Status: Acute (2) Acute renal failure superimposed on stage 4 chronic kidney disease Code(s): N17.9 - Acute kidney failure, unspecified; N18.4 - Chronic kidney disease, stage 4 (severe) Status: Acute (3) Metabolic encephalopathy Code(s): G93.41 - Metabolic encephalopathy Status: Acute (4) Urinary tract infection Code(s): N39.0 - Urinary tract infection, site not specified Status: Resolved (5) History of colon cancer Code(s): Z85.038 - Personal history of other malignant neoplasm of large intestine Status: Resolved (6) Hyperkalemia Code(s): E87.5 - Hyperkalemia Status: Acute - Plan Doing well and creatinine down to 2.9 Patient seen and examined, agree with above. Creatinine continue to improve. Patient can be discharged and follow-up as an outpatient
[2018-04-30] MEDS: Latanoprost 0.005% Opth Drops 2.5 ML Bottle EACH EYE SCH (20:23)
[2018-04-30] MEDS: Dorzolamide 2% Opth Drops 10 ML Bottle EACH EYE SCH (20:23)
[2018-05-01] MEDS: Sodium Chloride 0.45 % Inj 1,000 ML IV.CONT SCH ×2 (06:09→18:18)
--- NOTE | 2018-05-01 08:40 | P.PN ---
Subjective Interval history: feeling about the same. Anxious to go home, but refuses rehab placement. Apparently didn't meet hospice criteria on first eval. Desirous of seeing different hospice program for eval. Physical Exam Vital signs: Vital Signs 04/30/18 18:58 04/30/18 20:00 05/01/18 00:00 Temperature 98.9 F 97.3 F L 97.9 F Pulse Rate 91 H 81 81 Respiratory Rate 18 18 18 Blood Pressure 109/62 149/70 H 137/62 Pulse Oximetry 92 L 99 95 05/01/18 08:00 Temperature 96.9 F L Pulse Rate 84 Respiratory Rate 18 Blood Pressure 153/78 H Pulse Oximetry 95 Intake & Output 04/30/18 05/01/18 05/01/18 18:59 06:59 18:59 Intake Total 1900 / 1900 2060 / 2060 Output Total 801 / 801 350 / 350 Balance 1099 / 1099 1710 / 1710 Weight 57.9 kg Intake: IV 1900 / 1900 1050 / 1050 1/2 Normal Saline Inj 1,000 ML 1900 / 1900 950 / 950 @ 84 mls/hr IV.CONT .[id number] [facility] Rx#:[id number] Rocephin Inj 1,000 MG In NS Inj 100 / 100 100 ML @ 200 mls/hr IV.SIG Q24H [facility] Rx#:[id number] Oral 60 / 60 Other 950 / 950 Output: Urine 350 / 350 Stool 1 / 1 Urine Amount (Catheter) 800 / 800 Indwelling Urethral Catheter 800 / 800 Other: Other Intake Source Saline Solution Date of Last Bowel Movement 04/30/18 05/01/18 # Incontinent Bowel Movements 2 Narrative: GENERAL: Thin elderly male in NAD. Remains alert with baseline confusion noted. SKIN: Warm and dry. No open wounds noted. HEAD: Atraumatic. Normocephalic. EYES: Pupils equal and round. No scleral icterus. No injection or drainage. ENT: No nasal bleeding or discharge. Mucous membranes pink and moist. NECK: Trachea midline. No JVD. CARDIOVASCULAR: Regular rate and rhythm. No significant murmur appreciated. RESPIRATORY: No accessory muscle use. Clear to auscultation. Breath sounds equal bilaterally. GASTROINTESTINAL: Abdomen soft, non-tender, nondistended. Bowel sounds normal. MUSCULOSKELETAL: Extremities without clubbing, cyanosis, or edema. Flexion contracture lower extremities at knees noted. NEUROLOGICAL: Awake and alert. No obvious cranial nerve deficits. Motor grossly within normal limits with the exception of contractures of lower extremity limiting strength testing. Normal speech. PSYCHIATRIC: Appropriate mood and affect. A bit anxious about wanting to be at home. - Urinary Catheter Management Indwelling Urethral Catheter Cath placed during this visit: yes Urethral indwelling: Yes Reason for continuing: Acute urinary retention Insertion date: 04/24/18 Results - Labs CBC & Chem 7: 04/30/18 05:47 04/30/18 05:47 Assessment and Plan - Assessment (1) Acute renal failure superimposed on stage 4 chronic kidney disease Code(s): N17.9 - Acute kidney failure, unspecified; N18.4 - Chronic kidney disease, stage 4 (severe) Status: Acute Plan: Renal indices have been improving and are basically at his baseline GFR. Fair urine output. Metabolic encephalopathy improved and mentation appears back to baseline. Converted IV fluids to half-normal saline given his rising sugar level and falling potassium. Appreciate nephrology input. We will encourage p.o. intake. (2) Metabolic acidosis Code(s): E87.2 - Acidosis Status: Acute Plan: Improved with IV fluids and temple of renal function. (3) Metabolic encephalopathy Code(s): G93.41 - Metabolic encephalopathy Status: Acute (4) Hyperkalemia Code(s): E87.5 - Hyperkalemia Status: Acute Plan: Corrected. Continue to follow. Modify IV fluids as appropriate. (5) Urinary tract infection Code(s): N39.0 - Urinary tract infection, site not specified Status: Resolved Plan: Continue medication. No fevers. Culture and sensitivities are reviewed. Will likely convert to Augmentin at discharge. Repeat UA still with abnormalities but improved. Repeat culture is pending. (6) Lumbar degenerative disc disease Code(s): M51.36 - Other intervertebral disc degeneration, lumbar region Status : Chronic Plan: Pain seems relatively well controlled currently. Physical therapy note reviewed and much appreciated. (7) Hypermagnesemia Code(s): E83.41 - Hypermagnesemia Status: Acute Plan: Improved with IV fluid and GFR temple. (8) Elevated lipase Code(s): R74.8 - Abnormal levels of other serum enzymes Status: Acute Plan: Improved with oral intake. No abdominal pain on palpation. Resolved. (9) Hypernatremia Code(s): E87.0 - Hyperosmolality and hypernatremia Status: Acute Plan: Improved with IV fluid adjustment. (10) Secondary hyperparathyroidism of renal origin Code(s): N25.81 - Secondary hyperparathyroidism of renal origin Status: Acute Plan: Calcium okay. Continue per nephrology guidelines. - Plan Code Status: DNR Discharge Planning: Hopefully discharge in the next 1-2 days. Patient still vehemently opposed to rehab placement. Apparently did not qualify for hospice with initial evaluation. We will have repeat hospice evaluation. I spoke with Celestina at [facility]. I spoke with the patient's caregiver, Parviz and she is agreeable to separate hospice evaluation and patient is desirous of such as well. Hard to believe he does not qualify given his significant physical debilitation, significant renal dysfunction and weight loss as well as poor p.o. intake. Hopefully can get him home with hospice in the next day or so.
[2018-05-01] MEDS: Enoxaparin Inj 30 MG/0.3 ML Syringe SQ SCH (09:57)
[2018-05-01] MEDS: Amoxicillin/Clavulanate 500/125 MG Tablet PO SCH ×2 (09:57→20:59)
[2018-05-01] MEDS: Megestrol Acetate Liq 400 MG/10 ML UDC PO SCH (09:57)
[2018-05-01] MEDS: Latanoprost 0.005% Opth Drops 2.5 ML Bottle EACH EYE SCH (21:02)
[2018-05-01] MEDS: Dorzolamide 2% Opth Drops 10 ML Bottle EACH EYE SCH (21:03)
[2018-05-02 02:04] VITALS: RESP 20
--- NOTE | 2018-05-02 08:21 | P.PN ---
Subjective Interval history: Overall stable. He is excited about the possibility of going home with hospice today or tomorrow. He is waiting on his caregiver Parviz to sign a couple of papers per his report. Physical Exam Vital signs: Vital Signs 05/01/18 12:00 05/01/18 15:33 05/01/18 20:00 Temperature 97.7 F 98.2 F 97.6 F Pulse Rate 90 78 78 Respiratory Rate 18 18 18 Blood Pressure 124/67 120/69 133/70 Pulse Oximetry 98 98 98 05/02/18 00:00 Temperature 97.9 F Pulse Rate 83 Respiratory Rate 20 Blood Pressure 114/63 Pulse Oximetry 97 Intake & Output 05/01/18 05/02/18 05/02/18 18:59 06:59 18:59 Intake Total 1360 / 1360 385 / 385 Output Total 900 / 900 925 / 925 Balance 460 / 460 -540 / -540 Weight 58.3 kg Intake: IV 1000 / 1000 325 / 325 1/2 Normal Saline Inj 1,000 ML 1000 / 1000 325 / 325 @ 84 mls/hr IV.CONT .[id number] [facility] Rx#:[id number] Oral 360 / 360 60 / 60 Output: Urine 900 / 900 925 / 925 Other: Date of Last Bowel Movement 05/01/18 05/01/18 # Bowel Movements 2 Narrative: GENERAL: Thin elderly male in NAD. Remains alert with baseline confusion noted. Quite interactive. SKIN: Warm and dry. No open wounds noted. HEAD: Atraumatic. Normocephalic. EYES: Pupils equal and round. No scleral icterus. No injection or drainage. ENT: No nasal bleeding or discharge. Mucous membranes pink and moist. NECK: Trachea midline. No JVD. CARDIOVASCULAR: Regular rate and rhythm. No significant murmur appreciated. RESPIRATORY: No accessory muscle use. Clear to auscultation. Breath sounds equal bilaterally. GASTROINTESTINAL: Abdomen soft, non-tender, nondistended. Bowel sounds normal. MUSCULOSKELETAL: Extremities without clubbing, cyanosis, or edema. Flexion contracture lower extremities at knees noted. NEUROLOGICAL: Awake and alert. No obvious cranial nerve deficits. Motor grossly within normal limits with the exception of contractures of lower extremity limiting strength testing. Normal speech. PSYCHIATRIC: Appropriate mood and affect. - Urinary Catheter Management Indwelling Urethral Catheter Cath placed during this visit: yes Urethral indwelling: Yes Reason for continuing: Acute urinary retention Insertion date: 04/24/18 Results - Labs CBC & Chem 7: 04/30/18 05:47 04/30/18 05:47 Microbiology 04/30/18 07:15 Clean Catch Urine Urine Culture - Preliminary No growth in 24 hours Assessment and Plan - Assessment (1) Acute renal failure superimposed on stage 4 chronic kidney disease Code(s): N17.9 - Acute kidney failure, unspecified; N18.4 - Chronic kidney disease, stage 4 (severe) Status: Acute Plan: Renal indices have been improving and are basically at his baseline GFR. Fair urine output. Metabolic encephalopathy improved and mentation appears back to baseline. Converted IV fluids to half-normal saline given his rising sugar level and falling potassium. Appreciate nephrology input. We will encourage p.o. intake. (2) Metabolic acidosis Code(s): E87.2 - Acidosis Status: Acute Plan: Improved with IV fluids and roman catholic of renal function. (3) Metabolic encephalopathy Code(s): G93.41 - Metabolic encephalopathy Status: Acute (4) Hyperkalemia Code(s): E87.5 - Hyperkalemia Status: Acute Plan: Corrected. (5) Urinary tract infection Code(s): N39.0 - Urinary tract infection, site not specified Status: Resolved Plan: Continue medication. No fevers. Culture and sensitivities are reviewed. Will likely convert to Augmentin at discharge. Repeat UA still with abnormalities but improved. Repeat culture demonstrates no growth so far. (6) Lumbar degenerative disc disease Code(s): M51.36 - Other intervertebral disc degeneration, lumbar region Status : Chronic Plan: Pain seems relatively well controlled currently. Physical therapy note reviewed and much appreciated. (7) Hypermagnesemia Code(s): E83.41 - Hypermagnesemia Status: Acute Plan: Improved with IV fluid and GFR roman catholic. (8) Elevated lipase Code(s): R74.8 - Abnormal levels of other serum enzymes Status: Acute Plan: Improved with oral intake. No abdominal pain on palpation. Resolved. (9) Hypernatremia Code(s): E87.0 - Hyperosmolality and hypernatremia Status: Acute Plan: Improved with IV fluid adjustment. (10) Secondary hyperparathyroidism of renal origin Code(s): N25.81 - Secondary hyperparathyroidism of renal origin Status: Acute Plan: Calcium okay. Continue per nephrology guidelines. - Plan Discharge Planning: Hopefully discharge home today or tomorrow with hospice. Patient still vehemently opposed to rehab placement. Apparently did not qualify for hospice with initial evaluation. We will have repeat hospice evaluation. I spoke with Celestina at [facility]. Patient reportedly now qualifies for hospice services. Hospice home services are being arranged. Patient's caregiver Parviz is aware and patient is agreeable.
[2018-05-02] MEDS: Amoxicillin/Clavulanate 500/125 MG Tablet PO SCH (08:59)
[2018-05-02] MEDS: Enoxaparin Inj 30 MG/0.3 ML Syringe SQ SCH (08:59)
[2018-05-02] MEDS: Megestrol Acetate Liq 400 MG/10 ML UDC PO SCH (08:59)
[2018-05-02 12:49] VITALS: TEMP 97.8; O2SAT 98
--- NOTE | 2018-05-02 12:53 | P.DS ---
Date of admission: 04/24/18 19:03 Primary care physician: No Primary Care Physician Attending physician on discharge: Buck Mayte Mick Anticipated date of discharge: 05/02/18 Brief History from admission: 87-year-old white male with stage IV chronic kidney disease who is been homebound and followed by home [facility] for his chronic disease management for the last several months. He has been a patient of mine for a while but in the last year he has become weaker and it has been difficult for him to leave his home so he has been seen by the home doc program. He has a caregiver that actually goes to his home every Sunday who found him today at home confused and lying in bed with his bedroom in disarray. She last saw him a week ago and he was in his usual state of health and was alert and oriented at that time. She states she talked with him on the phone on 04/19/2018 and he seemed alert and was not complaining of anything at that time. He has decline in mentation and physical condition has ends transpired over the last few days. The last blood test results that I have been his electronic health record were from 02/05/2018 and at that time his BUN was 62 and creatinine was 3.06 with a CO2 of 17. His GFR is generally been in the low 20s and occasionally around 18 for the last couple years. He has been on metoprolol in the past for hypertension but he has not been taking it for a while according to his drafter civil (cad). He has a history of aan advanced directive and a "do not resuscitate" form and also has expressed in the past that he did not want dialysis should his kidney function get worse. In the ER he was noted to be confused and delirious and his BUN was in the 160s with a creatinine of 10.0, a CO2 of 5, and a potassium of 5.8. His urinalysis shows innumerable WBCs and bacteria. I have talked with the duplicating machine mechanic Dr. Beckman and he will be given half normal saline with 2 A of sodium bicarb at 100 cc an hour. He is going to be given Rocephin 1 g every 24 hours for possible UTI and a culture is been ordered in the ED. If his kidney function does not respond then he will likely be placed on hospice therapy. Medical history: Stage IV chronic kidney disease for quite some time History of hypertension in the past History of colon cancer with prior left hemicolectomy in 2013 History of colon polyps Glaucoma Atherosclerosis of the aorta Tortuous aorta History of anemia of chronic kidney disease in the past Nonfunctioning right kidney secondary to prior pyelonephritis in 1983 Lumbar degenerative disc disease History of gout No history of heart attack, CHF, angina, liver disease, diabetes mellitus, thyroid disease, stroke, seizure disorder. He has had pneumonia in the past. He had a bleeding ulcer in 2001. Surgical history: On 07/05/2013 he had a temporary diverting colostomy for an obstructing colon cancer. Then on 09/02/2013 he underwent a colonoscopy that showed an adenomatous polyp of the cecum and a colon cancer of the rectosigmoid region. Then on 2013 he had a left nisha-colectomy and closure of his colostomy. 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 All agreeable to hospice at home with 24/7 bedside care. Pt vehemently opposed to any rehab center and wants to go home. He will remain with ordoñez in place. DS: Diagnosis - Discharge Diagnosis (1) Acute renal failure superimposed on stage 4 chronic kidney disease Status: Chronic (2) Metabolic acidosis Status: Acute (3) Metabolic encephalopathy Status: Acute (4) Hyperkalemia Status: Acute (5) Urinary tract infection Status: Resolved (6) Lumbar degenerative disc disease Status: Chronic (7) Hypermagnesemia Status: Acute (8) Elevated lipase Status: Acute (9) Hypernatremia Status: Acute (10) Secondary hyperparathyroidism of renal origin Status: Acute DS: Medications - Discharge Medications Prescriptions: amoxicillin-pot clavulanate [Augmentin] 1 tab PO Q12HR #6 tab megestrol 400 mg PO DAILY #120 ml methyl salicylate-menthol [Analgesic GRX [place]] 0 applicatio TOPICAL Q12H PRN # 60 g PRN Reason: Muscle Pain DS: Summary Hospital Course: Pt admitted with ADRIEN, UTI and metabolic encephalopathy. Ordoñez placed to relieve obstructive uropathy. Abx and IVF provided. Pt recovered slowly, but steadily returned to baseline renal fxn and mentation. Was seen by urology and nephrology specialists. D/C was delayed somewhat as pt vehemently opposed any rehab, SNF, [facility] placement. He desires home only and will be d/c home with hospice using 19/02 bedside care initially. - Time Spent with Patient Total time spent providing and/or coordinating discharge services: Greater than 30 minutes - Quality: AMI Clinical Trial Participant: No - Quality: VTE Deep Vein Thrombosis/Pulmonary Embolism Present on Admission: No Exam Vital signs: Vital Signs 05/01/18 15:33 05/01/18 20:00 05/02/18 00:00 Temperature 98.2 F 97.6 F 97.9 F Pulse Rate 78 78 83 Respiratory Rate 18 18 20 Blood Pressure 120/69 133/70 114/63 Pulse Oximetry 98 98 97 05/02/18 08:00 Temperature 97 F L Pulse Rate 78 Respiratory Rate 20 Blood Pressure 132/63 Pulse Oximetry 96 Intake & Output 05/01/18 05/02/18 05/02/18 18:59 06:59 18:59 Intake Total 1360 / 1360 385 / 385 Output Total 900 / 900 925 / 925 Balance 460 / 460 -540 / -540 Weight 58.3 kg Intake: IV 1000 / 1000 325 / 325 1/2 Normal Saline Inj 1,000 ML 1000 / 1000 325 / 325 @ 84 mls/hr IV.CONT .[id number] [facility] Rx#:[id number] Oral 360 / 360 60 / 60 Output: Urine 900 / 900 925 / 925 Other: Date of Last Bowel Movement 05/01/18 05/01/18 # Bowel Movements 2 Results Procedures completed during hospitalization: none except ordoñez insertion - Impressions ITS Impressions Chest X-Ray 04/24/18 17:46 CONCLUSION: No acute cardiopulmonary abnormality is identified. Overall, stable exam. Abdomen Ultrasound 04/25/18 00:00 CONCLUSION: 1. Bilateral renal hydronephrosis, worse on the left side of unknown etiology. 2. Positive gallbladder sludge with mildly dilated common bile duct. Discharge Plan - Discharge Disposition Patient Disposition: 50 Hospice/Home - Discharge Condition Condition: Stable - Discharge Order Discharge Orders: Discharge Order (Routine); Ordered 05/02/18 Ordered By: Gabriel Nails - Discharge Details Anticipated Discharge Date: 05/02/18 Discharge Comment: d/c home with hospice once hospital bed, bedside tray, etc arranged by [facility]. - Physicians Team Primary Care Provider: Primary Care Dalila,Beverly Attending Provider: Buck Barton Other Providers: Nicole Beckman MD ; Pieter Clemons MD
[2018-05-02 17:10] VITALS: BP 113/67; PULSE 80
== END 2018-05-02 19:00 | disposition hospice, home (50) ==
LOC: PHED 17:25 → PHEDA 19:03 → PH3 20:56
PROVIDERS: ADMIT Family Medicine; ATTEND Family Medicine